=== PATIENT | female | born 1955 | race Caucasian/White ===

== ENCOUNTER 2024-07-26 07:07 | Emergency (ER) | payer MEDICARE, MEDICAID, SELFPAY ==
--- NOTE | ~2024-07-26 | XR_ITS ---
EXAMINATION: XR knee RT min 4V DATE: 07/26/2024 07:54 INDICATION: Right knee pain. TECHNIQUE: 4 views of right knee were obtained. COMPARISON: None. FINDINGS: There is a total right knee arthroplasty with patellar resurfacing. There are lucencies florence und the tibial component. There is varus angulation of tibia with respect to tibial component. There is a comminuted periprosthetic fracture of proximal tibia anteriorly. There is a large knee joint eff usion. IMPRESSION: 1. Total right knee arthroplasty with loosened tibial component and comminuted periprosthetic fractur e of proximal tibia. 2. Large knee joint effusion. Consider knee joint aspiration to exclude infection. Reviewed, dictated and finalized at location A. IMPRESSION: 1. Total right knee arthroplasty with loosened tibial component and comminuted periprosthetic fracture of proximal tibia. 2. Large knee joint effusion. Consider knee joint aspiration to exclude infecti on.
[2024-07-26 07:03] VITALS: BP 134/98; PULSE 97; RESP 14; TEMP 35.5; O2SAT 98
[2024-07-26 07:25] VITALS: TEMP 36.4
--- OUTSIDE RECORDS SUMMARY | 2024-07-26 07:35 | XMS_ITS | Clinical Summary ---
Author Organization [facility] Address [address] [facility] [place] [address] Care Team Providers Care Picking Belt Operator Name Role Phone Elliott Valente MD Primary Care Provider [phone] Source Comments [facility],non-owned Affiliates and Associated Physician Practices is amultiple site organization consisting of ambulatory clinics and hospital sitesin [place], [place], [place] and [place]. This disclosure is being madepursuant to the Care Everywhere program and may not contain all information available regarding this patient. Last updated 18.[facility] Allergies Active Allergy Reactions Criticality Noted Date Comments Cortisone Other,Unknown 01/25/2024 Morphine Other High 05/08/2024 Iv induced only Codeine Other 05/08/2024 hallucination Prednisone Unknown 01/25/2024 Medications * Be aware that medications may not be up to date on this document. Alwaysverify current medications with the patient. Medication Sig Dispensed Refills Start Date End Date Status acetaminophen (Tylenol) 325 MG tablet Take 2 (two) tablets by mouth 01/16/2024 Active baclofen (Lioresal) 5 MG TABS Take 1 (one) tablet by mouth every 8 hours as needed 02/07/2024 Active budesonide-formoter ol (Symbicort) 160-4.5 MCG/ACT inhaler Inhale 2 (two) puffs by mouth 2 times daily 02/07/2024 Active busPIRone (Buspar) 7.5 MG tablet Take 1 (one) tablet by mouth 2 times daily 01/16/2024 Active vitamin D, ergocalciferol, (Drisdol) 1.25 MG (13717 UT) capsule TAKE 1 CAPSULE BY MOUTH ONE TIME PER WEEK 09/21/2023 Active fluconazole (Diflucan) 150 MG tablet TAKE 1 TABLET (150 MG TOTAL) BY MOUTH ONCE FOR 1 DOSE. 07/12/2023 Active furosemide (Lasix) 20 MG tablet Take 1 (one) tablet by mouth 2 times daily 01/16/2024 Active furosemide (Lasix) 40 MG tablet Take 1 (one) tablet by mouth 01/16/2024 Active gabapentin (Neurontin) 300 MG capsule Take 1 (one) capsule by mouth once daily 09/01/2023 Active glipiZIDE CR 24hr (Glucotrol XL) 2.5 MG tablet TAKE 1 TABLET BY MOUTH NIGHTLY,TO BE USED WITH THE 5MG 04/21/2023 Active SeptRx CONTOUR NEXT TEST test strip Use 1 (one) strip as instructed SEE ADMIN INSTRUCTIONS 12/26/2022 Active guaiFENesin ER 12hr (Mucinex) 600 MG tablet Take 1 (one) tablet by mouth 01/16/2024 Active Insulin Glargine, 1 Unit Dial, (Toujeo) pen Inject 35 Units under the skin planning engineer before breakfast AND 20 Units nightly. 09/26/2023 Active insulin glargine-yfgn (Semglee) pen 35 unit(s), Subcutaneous, Daily, 0 Refill(s), Indication: DM II 01/16/2024 Active insulin lispro (HumaLOG) 100 UNIT/ML vial 05/04/2024 Active BD Pen Needle Erika 2nd Gen 32G X 4 MM MISC 2 times daily 10/22/2023 Active lidocaine (Lidoderm) 5 % patch Apply 3 (three) patches to skin every 24 hours 02/07/2024 Active metFORMIN (Glucophage) 500 MG tablet TAKE 1 TAB BY MOUTH IN THE MORNING AND 2 AT BEDTIME 04/28/2023 Active meclizine (Antivert) 25 MG tablet Take 1 (one) tablet by mouth 01/16/2024 Active meloxicam (Mobic) 15 MG tablet Take 1 (one) tablet by mouth once daily 08/10/2023 08/09/2024 Active Semaglutide (1 MG/DOSE) 2 MG/1.5ML Subcutaneous Solution Pen-injector Active traMADol HCl 100 MG TABS Take 100 mg by mouth every 6 hours as needed 02/19/2024 Active Active Problems No known active problems Encounters Date Type Department Care Team Description 05/08/2024 2:58 PM MENTAL HEALTH UNIT LEAD PSYCHOLOGIST - 05/08/2024 7:53 PM MENTAL HEALTH UNIT LEAD PSYCHOLOGIST Emergency ER at [facility] [address] [place] [address] Marlys Allen DO Closed head injury, initial encounter; Abrasion of forehead, initial encounter Discharge Disposition: Home or Self Care 05/08/2024 1:30 PM MENTAL HEALTH UNIT LEAD PSYCHOLOGIST - 05/08/2024 11:59 PM MENTAL HEALTH UNIT LEAD PSYCHOLOGIST Hospital Encounter [facility] - Orthopedics [address] [place] [address], [address] [place] [phone] Bladimir Gonzalez MD Discharge Disposition: Home or Self Care 05/08/2024 1:30 PM MENTAL HEALTH UNIT LEAD PSYCHOLOGIST Office Visit [facility] - Orthopedic Surgery [address] [place] [phone] Bladimir Gonzalez MD Failed total knee arthroplasty, initial encounter (Primary Dx) 05/08/2024 Travel 05/08/2024 Travel 05/07/2024 Orders Only [facility] - Orthopedic Surgery [address] [place] [phone] Bladimir Gonzalez MD Left knee pain, unspecified chronicity from Last 3 Months Immunizations Name Administration Dates Next Due TDAP (7yrs+) 05/08/2024 Social History Tobacco Use Types Packs/Day Years Used Date Smoking Tobacco: Never Assessed PHQ-2 Answer Date Recorded Patient Health Questionnaire-2 Score 4 07/18/2024 Sex and Gender Information Value Date Recorded Sex Assigned at Female 07/05/2024 10:13 AM MENTAL HEALTH UNIT LEAD PSYCHOLOGIST Gender Identity Female 07/05/2024 10:13 AM MENTAL HEALTH UNIT LEAD PSYCHOLOGIST Sexual Orientation Not on file Last Filed Vital Signs Vital Sign Reading Time Taken Comments Blood Pressure 115/86 05/08/2024 5:00 PM MENTAL HEALTH UNIT LEAD PSYCHOLOGIST Pulse 92 05/08/2024 3:04 PM MENTAL HEALTH UNIT LEAD PSYCHOLOGIST Temperature 36.6 C (97.8 F) 05/08/2024 3:04 PM MENTAL HEALTH UNIT LEAD PSYCHOLOGIST Respiratory Rate 16 05/08/2024 3:04 PM MENTAL HEALTH UNIT LEAD PSYCHOLOGIST Oxygen Saturation 95% 05/08/2024 5:00 PM MENTAL HEALTH UNIT LEAD PSYCHOLOGIST Inhaled Oxygen Concentration - - Weight - - Height - - Body Mass Index - - Plan of Treatment Upcoming Encounters Date Type Department Care Team (Filomena borja Contact Info) Description 10/11/2024 11:00 AM CDT Office Visit [facility] - Orthopedic Surgery [address] [place] [phone] Gerson Espinosa DO [address] [facility] [place] [address] Health Maintenance Due Date Last Done Comments BONE DENSITY TESTING 1957 COLON MONITORING 1957 COLONOSCOPY - COLON CA SCREENING 1957 CT COLONOGRAPHY - COLON CA SCREENING 1957 FIT - COLON CA SCREENING 1957 FLEX SIG - COLON CA SCREENING 1957 LIPID TESTING 1957 MEDICARE AWV 12 MONTHS 1957 HEPATITIS C SCREENING 12/21/1975 PNEUMOCOCCAL VACCINE 50+ (1 of 1 - PCV) 12/26/2007 ZOSTER VACCINE (1 of 2) 12/26/2007 Respiratory Syncytial Virus (RSV) Vaccine Pt: or over 60 yrs (1 - Risk 60-74 years 1-dose series) 2017 MAMMOGRAM 05/24/2020 05/24/2018, 05/02, 02/25/2016, Additional history exists COVID-19 VACCINE ( - season) 2023 03/06/2021, 07/28/2020 DEPRESSION SCREENING 05/01/2024 COLOGUARD (AGES 45-75) - COLON CA SCREENING 08/09/2025 08/09/2022 Colorectal Cancer Screening 08/09/2025 DTAP/TDAP/TD VACCINES (2 - Td or Tdap) 05/08/2034 05/08/2024 INFLUENZA VACCINE Completed 02/07/2024, , 02/11/2020, Additional history exists HEPATITIS B VACCINE Aged Out No longe r eligible based on patient's age to complete this topic HIB VACCINE Aged Out No longer eligi ble based on patient's age to complete this topic HPV VACCINE Aged Out No longer eligi ble based on patient's age to complete this topic MENINGOCOCCAL (Group B) VACCINE SHARED DECISION-MAKING Aged Out No longer eligible based on patient's age to complete this topic MENINGOCOCCAL GROUPS A/C/Y/W VACCINE Aged Out No longer eligible based on patient's age to complete this topic Procedures Procedure Name Priority Date/Time Associated Diagnosis Comments CT HEAD CERV SPINE WO CONTRAST STAT 05/08/2024 5:46 PM MENTAL HEALTH UNIT LEAD PSYCHOLOGIST Closed head injury, initial encounter XR KNEE LEFT 2VW OR LESS Routine 05/08/2024 1:41 PM MENTAL HEALTH UNIT LEAD PSYCHOLOGIST Left knee pain, unspecified chronicity from Last 3 Months Results * CT Head Cerv Spine Wo Contrast (05/08/2024 5:46 PM MENTAL HEALTH UNIT LEAD PSYCHOLOGIST) Anatomical Region Laterality Modality Head Computed Tomogra phy 05/08/2024 5:50 PM MENTAL HEALTH UNIT LEAD PSYCHOLOGIST Impressions 05/08/2024 5:52 PM MENTAL HEALTH UNIT LEAD PSYCHOLOGIST IMPRESSION: 1. No acute intracranial process. 2. No evidence of acute fracture in the cervical spine. > Interpreting Provider: Tom Coleman MD on 05/08/2024 5:52 PM Narrative 05/08/2024 5:52 PM MENTAL HEALTH UNIT LEAD PSYCHOLOGIST PROCEDURE: CT HEAD CERV SPINE WO CONTRAST DATE/TIME OF EXAM: 05/08/2024 5:46 PM CLINICAL INFORMATION: None relevant/not provided if blank. Indication: S09.90XA: Unspecified injury of head, initial encounter Additional History: EXAMINATION: 1. Computed tomography (CT) of the head without contrast 2. CT of the cervical spine without contrast HISTORY: S09.90XA: Unspecified injury of head, initial encounter TECHNIQUE: CT of the head and cervical spine were performed without contrast according to standard protocol. FINDINGS: Head: No acute intra- or extra-axial fluid collections are identified. There is mild cerebral volume loss with associated ex vacuo ventricular dilatation. The basilar cisterns are patent. No mass effect or midline shift is seen. Hypoattenuation is seen in the periventricular white matter and there may be some small lacunar infarcts particularly along the frontal horn of the right lateral ventricle. Periventricular white matter hypoattenuation is indicative of chronic small vessel ischemic disease. There is vascular calcification of the carotid siphons. The visualized portions of the orbits, paranasal sinuses, and mastoids appear normal. No acute fracture is identified. Cervical spine: The alignment is normal. Vertebral bodies are normal in height without evidence of acute fracture. The craniocervical junction is normal. Degenerative changes are seen in the spine. Posterior disc osteophyte complexes are seen throughout the cervical spine. There may be some scarring in the lung apices. There could be central canal stenosis secondary to multiple posterior disc osteophyte complexes particularly in the lower cervical spine. Procedure Note Tom Coleman MD - 05/08/2024 PROCEDURE: CT HEAD CERV SPINE WO CONTRAST DATE/TIME OF EXAM: 05/08/2024 5:46 PM CLINICAL INFORMATION: None relevant/not provided if blank. Indication: S09.90XA: Unspecified injury of head, initial encounter Additional History: EXAMINATION: 1. Computed tomography (CT) of the head without contrast 2. CT of the cervical spine without contrast HISTORY: S09.90XA: Unspecified injury of head, initial encounter TECHNIQUE: CT of the head and cervical spine were performed without contrast according to standard protocol. FINDINGS: Head: No acute intra- or extra-axial fluid collections are identified. Thereis mild cerebral volume loss with associated ex vacuo ventriculardilatation. The basilar cisterns are patent. No mass effect or midline shift isseen. Hypoattenuation is seen in the periventricular white matter and theremay be some small lacunar infarcts particularly along the frontal horn ofthe right lateral ventricle. Periventricular white matter hypoattenuation is indicative of chronic small vessel ischemic disease. There is vascular calcification of the carotid siphons. The visualized portions of the orbits, paranasal sinuses, and mastoids appear normal. No acute fractureis identified. Cervical spine: The alignment is normal. Vertebral bodies are normal in height without evidence of acute fracture. The craniocervical junction is normal. Degenerative changes are seen in the spine. Posterior disc osteophyte complexes are seen throughout the cervical spine. There may be some scarring in the lung apices. There could be central canal stenosis secondary to multiple posterior disc osteophyte complexes particularlyin the lower cervical spine. IMPRESSION: 1. No acute intracranial process. 2. No evidence of acute fracture in the cervical spine. > Interpreting Provider: Tom Coleman MD on 05/08/2024 5:[address] ORDERABLES * XR Knee Left 2Vw or Less (05/08/2024 1:41 PM MENTAL HEALTH UNIT LEAD PSYCHOLOGIST) Anatomical Region Laterality Modality Lower Extremity Radiographic Blanca ging 05/08/2024 1:43 PM MENTAL HEALTH UNIT LEAD PSYCHOLOGIST Narrative 05/08/2024 1:47 PM MENTAL HEALTH UNIT LEAD PSYCHOLOGIST Procedure: XR KNEE LEFT 2VW OR LESS Exam Date: 05/08/2024 1:41 PM Location: [facility] Indication: M25.562: Pain in left knee Findings/impression: No old studies are available for comparison purposes. Patient is status post total knee replacement. There is slight posterior translation of the tibia with respect to the femur. There appear to be 2 fragments of the patella. One fragment is at its typical position. There is a second fragment in the superior aspect of the joint space. Please correlate clinically. Comparison to old studies would be helpful. There is surrounding soft tissue swelling. Intra-articular bodies are present posteriorly. > Interpreting Provider: Chacho Zayas MD on 05/08/2024 1:47 PM Procedure Note Chacho Zayas MD - 05/08/2024 Procedure: XR KNEE LEFT 2VW OR LESS Exam Date: 05/08/2024 1:41 PM Location: [facility] Indication: M25.562: Pain in left knee Findings/impression: No old studies are available for comparison purposes. Patient is status post total knee replacement. There is slight posterior translation ofthe tibia with respect to the femur. There appear to be 2 fragments of the patella. One fragment is at its typical position. There is a second fragment in the superior aspect of the joint space. Please correlate clinically. Comparison to old studies would be helpful. There is surrounding soft tissue swelling. Intra-articular bodies are present posteriorly. > Interpreting Provider: Chacho Zayas MD on 05/08/2024 1:47 PM Bladimir Gonzalez MD DIAGNOSTIC IMAGING ORDERABLES from Last 3 Months Care Teams Picking Belt Operator Relationship Specialty Start Date End Date Elliott Valente MD [address] [address] PCP - General Family Medicine 05/08/24
--- OUTSIDE RECORDS SUMMARY | 2024-07-26 07:36 | XMS_ITS | Encounter Summary ---
Author Organization [facility] Care Team Providers Care Geothermal Electrical Engineer Name Role Phone Cecilio Villaseñor MD Primary Care Provider [phone] Todd Cabrales MD Primary Care Provider [phone] Elliott Valente MD Primary Care Provider [phone] Sammi Chanel [facility] Unavailable [phone] Amy Sanchez CDE Unavailable [phone] Cristiane Kam RN Unavailable [phone] Cristiane Kam RN Unavailable [phone] Miri Rincon [facility] Unavailable [phone] Jany Mariee RN Unavailable [phone] Sabiha Jimenez [facility] Unavailable [phone] Encounter Details Date Type Department Care Team (Latest Contact Info) Description 11/16/2015 Orders Only [facility] ProviderKanwal MD [address] [place] [address] Social History Tobacco Use Types Packs/Day Years Used Date Smoking Tobacco: Never Assessed Comments Unknown Sex and Gender Information Value Date Recorded Sex Assigned at Not on file Legal Sex Female 8:39 PM ELECTRONIC SYSTEMS TECHNICIAN Gender Identity Not on file Sexual Orientation Not on file documented as of this encounter Plan of Treatment Not on file documented as of this encounter Procedures Procedure Name Priority Date/Time Associated Diagnosis Comments SCAN - LABS 11/17/2015 12:00 AM CDT documented in this encounter Results * SCAN - LABS (11/17/2015 12:00 AM CDT) Narrative 11/17/2015 12:00 AM CDT Ordered by an unspecified provider. us Historical Provider Final Res ult documented in this encounter Visit Diagnoses Not on filedocumented in this encounter Additional Health Concerns Infection Onset Date Last Indicated Resolved Time COVID: Suspected 04/23/2020 04/23/2020 05/07/2020 3:06 AM ELECTRONIC SYSTEMS TECHNICIAN documented as of this encounter Care Teams Geothermal Electrical Engineer Relationship Specialty Start Date End Date Cecilio Villaseñor MD [address] [place] [address] PCP - General 01/12/11 01/07/19 Todd Cabrales MD [facility] [facility] [facility] [facility] [place] [address] PCP - General Family Medicine 01/08/19 03/29/22 Elliott Valente MD [address] [place] [address] PCP - General Family Medicine 03/30/22 Sammi Chanel, Tasha [address] [place] [address] [address] [place] [address] Pharmacist Pharmacy 01/18/23 02/16/23 Amy Sanchez CDE [address] [place] [address] [address] [place] [address] Roof Truss Detailer 07/06/23 07/20/23 Cristiane Kam, RN [address] [place] [address] [address] [place] [address] Salary And Wage Administrator 07/06/23 07/13/23 Cristiane Kam, RN [address] [place] [address] [address] [place] [address] Salary And Wage Administrator 07/14/23 08/02/23 Miri Rincon, TECHNICAL ADJUSTER [address] [place] [address] [place] [address] Agriculture Department Chair 01/24/24 03/25/24 Jany Mariee, KARIME [address] [place] [address] [address] [place] [address] Salary And Wage Administrator 02/08/24 Sabiha Jimenez, [address] [place] [address] Pharmacist Pharmacy 02/20/24 02/20/24 documented as of this encounter
--- OUTSIDE RECORDS SUMMARY | 2024-07-26 07:36 | XMS_ITS | Continuity of Care Document ---
Author Organization [facility] Address [address] [place] [address] Phone Care Team Providers Care Liquefied Natural Gas Plant Operator Name Role Phone Devin Valencia MD Unavailable Unavailable Medications Medication Instructions Dosage Effective Dates (start - stop) Status Comments cetirizine 10 mg tablet take 1 tablet by oral route every evening 10 MG - Active fexofenadine 180 mg tablet take 1 tablet by oral route every morning 180 MG - Active clotrimazole 10 mg neelam take 1 tablet by oral route 4 times every day dissolved slowly in the mouth 10 MG - Active irbesartan 150 mg-hydrochlorothiazi de 12.5 mg tablet - Active metformin 500 mg tablet take 1 tablet by oral route 2 times every day with morning and evening meals 500 MG - Active gabapentin 300 mg capsule take 1 capsule by oral route 3 times every day 300 MG - Active OMEPRAZOLE (unknown strength) Not Available - Active PreserVision AREDS 2 250 mg-200 unit-40 mg-1 mg capsule - Active glipizide ER 2.5 mg tablet, extended release 24 hr - Active LANTUS (unknown strength) inject by subcutaneous route as per insulin protocol Not Available - Active tramadol 50 mg tablet - Active Advance Directives Directive Yes / No Effective Date File Name No Information Encounters Encounter Description Practice Location Reason(s) For Visit Diagnoses Date Provider Providers Copied on Encounter [facility], [address], [place], [place], [id number], [place] tel:[phone] [facility] No Information 7 Erik Beltran. [address] [address], [place], [place], [id number], [place]. tel:[phone] [facility], [address], [place], [place], [id number], [place] tel:[phone] [facility] Other urticariaThru sh, oralRosacea, unspecified Dec- 7 Erik Beltran. [address] [facility] [address], [place], [place], [id number], . tel:[phone] Referring Provider: Cecilio Villaseñor [address] [place] [address] [address], [place], [address]. tel:[phone] [facility], [address], [place], [place], [id number], tel:[phone] [facility] ALLERGIC URTICARIA 7 Conversion Doctor. [address] [place] [address], [facility], . [facility], [address], [place], [place], [id number], tel:[phone] [facility] RHINITIS DUE TO POLLEN 1 Conversion Doctor. [address] [place] [address], [facility], . Family History Family Member Type Diagnosis Age At Onset No Information Payers Payer name Insurance type Covered libertarian ID Authoriza tion(s) [place]ICARE [place] [id number] Social History Type Description Quantity Date Captured Comments Alcohol Use Details Unknown Caffeine Use Details Unknown Tobacco Use Status No Information Smoking Status No Information Sex Female Chief Complaint And Reason For Visit No Information Reason For Referral Reason For Referral No Information History Of Present Illness Encounter Date Complaint History Of Prese nt Illness No Information Functional Status Date Functional Assessmen t No Information Instructions Date Instruction Additional Infor mation No Information Assessments Type Assessment Date No Information Patient Care Teams Name Effective Dates (start - stop) Status Members No Information
--- OUTSIDE RECORDS SUMMARY | 2024-07-26 07:36 | XMS_ITS | Referral Summary ---
Author Organization [facility] Address [address] [place] [address] Care Team Providers Care Home Health Assistant Name Role Phone Elliott Valente MD Primary Care Provider [phone] Jany Mariee RN Unavailable [phone] Encounters Date Type Department Care Team Description 06/24/2024 Telephone [facility] Pulmonary [address] [place] [address] Chase Levin MD Orders Only 06/24/2024 11:30 AM [employer] Office Visit [address] [place] [address] Lupe Walters NP SUKUMAR (obstructive sleep apnea) (Primary Dx); Moderate persistent asthma without complication 05/17/2024 Telephone [facility] at [place] [address] [place] [address] Elliott Valente MD Medical Question/Miscellaneou s from Last 3 Months Allergies Active Allergy Reactions Criticality Noted Date Comments Cortisone Unknown 01/25/2024 Cephalexin Hives Medium 06/17/2019 Morphine Hypotension High Iv induced only Neuromuscular Blockers, Steroidal Penicillins Unknown,Other (See comments) Low 01/25/2024 Prednisone Unknown 01/25/2024 Medications vit C/E/Zn/coppr/lute in/zeaxan (PRESERVISION AREDS-2 ORAL) 2 (two) times a day Active loratadine (CLARITIN) 10 mg tablet Take 1 tablet (10 mg total) by mouth nightly Active meclizine (ANTIVERT) 12.5 mg tabletIndications :Vertigo Take 1 tablet (12.5 mg total) by mouth 3 (three) times a day as needed for dizziness 90 tablet 020 Active magnesium oxide (MAG-OX) 400 mg (241.3 mg elemental magnesium) tablet Take 1 tablet (400 mg total) by mouth daily Active blood glucose diagnostic (Contour Next Test Strips) stripIndications: Type 2 diabetes mellitus with peripheral neuropathy (HCC) 1 each by other route as directed Twice daily 100 strip 11 023 Active metFORMIN (GLUCOPHAGE) 500 mg tabletIndications :Type 2 diabetes mellitus with peripheral neuropathy (HCC) TAKE 1 TAB BY MOUTH IN THE MORNING AND 2 AT BEDTIME 023 Active meloxicam (MOBIC) 15 mg tabletIndications :Primary osteoarthritis of both knees TAKE 1 TABLET (15 MG TOTAL) BY MOUTH DAILY. 90 tablet 3 024 2024 Active pen needle, diabetic (Unifine Pentips) 32 gauge x 5/32 needleIndications :Type 2 diabetes mellitus with peripheral neuropathy (HCC) Twice daily. Needs 4 mm 100 each 11 024 Active ergocalciferol (VITAMIN D) 50,000 unit capsule Take 1 capsule (50,000 Units total) by mouth once a week 12 capsule 4 024 Active gabapentin (NEURONTIN) 300 mg capsule Take 1 capsule (300 mg total) by mouth daily 90 capsule 3 024 Active ipratropium-albut Roro (DUO-NEB) 0.5-2.5 mg/3 mL nebulizer solutionIndicatio ns:Chronic Obstructive Pulmonary Disease with Bronchospasms Take 3 mL by nebulization 4 (four) times a day as needed for wheezing or shortness of breath 024 2024 Active potassium chloride ER (Klor-Con M20) 20 mEq CR tabletIndications :Bilateral leg edema Take 1 tablet (20 mEq total) by mouth 3 (three) times a day 270 tablet 3 024 Active lancets miscIndications:T ype 2 diabetes mellitus with peripheral neuropathy (HCC) Test tid 300 each 3 024 Active furosemide (LASIX) 20 mg tablet Take 1 tablet (20 mg total) by mouth 2 (two) times a day Active omeprazole (PriLOSEC) 40 mg capsule Take 1 capsule (40 mg total) by mouth daily Active baclofen (LIORESAL) 5 mg tablet Take 1 tablet (5 mg total) by mouth every 8 (eight) hours as needed for muscle spasms Active insulin lispro (HumaLOG, ADMELOG) 100 unit/mL pen for injection Inject 5 Units under the skin 3 (three) times a day with meals Active lidocaine (LIDODERM) 5 %Indications:Knee and hip Place 3 patches on the skin daily Remove & discard patch within 12 hours or as directed by MD. Active montelukast (SINGULAIR) 10 mg tablet Take 1 tablet (10 mg total) by mouth nightly 024 2024 Active traMADoL 100 mg tabletIndications :Pain Take 100 mg by mouth every 6 (six) hours as needed (pain) 120 tablet 024 Active busPIRone (BUSPAR) 7.5 mg tabletIndications :Anxiety TAKE 1 TABLET BY MOUTH 2 TIMES A DAY. 180 tablet 3 024 Active insulin glargine 100 unit/mL (3 mL) pen for injectionIndicati ons:Type 2 diabetes mellitus with peripheral neuropathy (HCC) 35 units in am and 40 units at bedtime 45 mL 4 025 Active semaglutide (Ozempic) 0.25 mg or 0.5 mg (2 mg/3 mL) pen injector injection Inject 0.5 mg under the skin every 7 days 2 mL 2 025 Active fluticasone-umecl idin-vilanter (TRELEGY ELLIPTA) 100-62.5-25 mcg inhalerIndication s:Please dispense 90 day Inhale 1 puff daily 24 each 3 025 Active semaglutide (OZEMPIC) 1 mg/dose (4 mg/3 mL) pen injector injectionIndicati ons:Type 2 diabetes mellitus with peripheral neuropathy (HCC) Inject 0.75 mL (1 mg total) under the skin every 7 days 3 mL 2 025 2024 Discontinued fluticasone-umecl idin-vilanter (TRELEGY ELLIPTA) 100-62.5-25 mcg inhalerIndication s:Moderate persistent asthma without complication Inhale 1 puff daily 28 each 11 025 2024 Discontinued fluticasone-umecl idin-vilanter (TRELEGY ELLIPTA) 100-62.5-25 mcg inhalerIndication s:Moderate persistent asthma without complication Inhale 1 puff daily 28 each 11 025 2024 Discontinued(R eorder) fluticasone-umecl idin-vilanter (TRELEGY ELLIPTA) 100-62.5-25 mcg inhalerIndication s:Please dispense 90 day Inhale 1 puff daily 24 each 3 025 2024 Discontinued(R eorder) Active Problems Problem Noted Date Diagnosed Date Physical deconditioning 01/31/2024 Assessment & Plan (01/31/2024 8:41 PM CDT): CT imaging inconclusive for new injuries to right hip Urinalysis testing pending Social service consultation for placement requested as per patient request Other constipation 01/31/2024 Assessment & Plan (01/31/2024 8:42 PM CDT): Lactulose x1 Patient is sedentary and utilizing narcotic pain medications Supplement Colace as a part of daily regimen Tachycardia 01/31/2024 Assessment & Plan (01/31/2024 8:43 PM CDT): Noted during physical examination Heart rate ranging from 105 up to 122 beats per minute, patient denies having chest pain or palpitation like sensation nor this patient refer dizziness Telemetry EKG pending Pending assessment a TSH and free T4 levels CTA chest negative for PE Pending follow-up assessment and further adjustments to management Bedbound 01/25/2024 Acute pain of left knee 12/13/2023 Leukocytosis 11/21/2023 Loosening of prosthesis of left knee joint 11/18 Loosening of prosthesis of left total knee repla cement 11/18/2023 Fall, initial encounter 11/17/2023 SIRS (systemic inflammatory response syndrome) 0 11/17/2023 Menopause 09/22/2023 Bilateral leg edema 09/22/2023 Overview (09/22/2023): Chronic. Likely due to Morbid Obesity/Sedantary Lifestly/High Sodium diet. Inadequately Controlled. 08/03/23 Stress test Ruled out CHF. Moderate persistent asthma without complication 09/22/2023 Overview (09/22/2023): Chronic. Controlled. COnt. Duoneb/Singulair/Trelegy. Follows Dr. Barroso. Assessment & Plan (06/24/2024 11:55 AM [employer]): The patient continue with Wixela one puff twice a day. Patient will continue with Singulair. Seasonal allergic rhinitis due to pollen 024 Overview (09/22/2023): conditoin chroinc adn at goal continue berny zyrtec and the singular Failed total knee arthroplasty 07/12/2022 Overview (07/12/2022): Added automatically from request for surgery [id number] ENRIQUE (generalized anxiety disorder) 12/31/2020 Assessment & Plan (01/23/2022 9:59 PM CDT): Chronic stable and currently on buspar. Continue current dosing. F/u with dr cabrales Assessment & Plan (12/31/2020 10:43 AM CDT): Chronic Stable on buspar Vaginal atrophy 02/28/2020 Decreased bladder capacity 11/28/2019 Pelvic floor dysfunction in female 05/29/2019 Assessment & Plan (01/23/2022 10:07 PM CDT): Chronic and recommended pelvic floor exercises Assessment & Plan (12/31/2020 10:42 AM CDT): Follows with urogynecology Incisional hernia, without obstruction or gangre ne 05/29/2019 Peripheral polyneuropathy 09/12/2018 Assessment & Plan (01/23/2022 10:08 PM CDT): Chronic stable Continue gabapentin. Assessment & Plan (12/31/2020 10:43 AM CDT): Chronic condition Stable On gabapentin and tramadol Assessment & Plan (09/13/2018 8:17 AM CDT): Controlled on gabapentin Leg pain, bilateral 09/21/2017 Chronic gastritis without bleeding 02/28/2017 Assessment & Plan (12/31/2020 10:38 AM CDT): Chronic condition stable on omeprazole Assessment & Plan (09/13/2018 8:16 AM CDT): Controlled on Prilosec Ganglion cyst of wrist 11/26/2015 Assessment & Plan (09/13/2018 8:55 AM CDT): The patient has asymptomatic can glean cyst and we discussed options including excision and she elected observation Artificial knee joint present 08/26/2015 HLD (hyperlipidemia) 08/24/2015 Assessment & Plan (01/23/2022 10:00 PM CDT): Chronic Currently not on statin Order lipid panel for evaluation of ldl goal < 70 Assessment & Plan (12/31/2020 10:40 AM CDT): Chronic condition Not on statin Order lipid panel Assessment & Plan (09/13/2018 8:17 AM CDT): Controlled on no medications Hypertension, essential 08/24/2015 Assessment & Plan (01/23/2022 10:01 PM CDT): Chronic stable and at goal Continue lasix and avalide Assessment & Plan (12/31/2020 10:40 AM CDT): Chronic Stable Continue current regimen At goal Assessment & Plan (09/13/2018 8:17 AM CDT): Continue current medications. Discussed low-salt diet. Discussed exercise on regular basis. Will continue to monitor OAB (overactive bladder) 08/24/2015 Assessment & Plan (01/23/2022 10:03 PM CDT): Chronic Persistent Recommended pelvic floor exercises Assessment & Plan (12/31/2020 10:41 AM CDT): Chronic condition Following with urogynecologist Assessment & Plan (09/13/2018 8:17 AM CDT): Followed by the urologist Class 3 severe obesity due t o excess calories without serious comorbidity with body mass index (BMI) greater than or equal to 70 in adult 08/24/2015 Assessment & Plan (09/18/2023 12:50 PM CDT): Recommended aggressive Lifestyle modification and weight loss for improving overall weight related health conditions. Follow up in 1 or 3 months for continuing Lifestyle Medicine education and management visit. Recommend Lifestyle/Nutrition/Weight Loss Seminar on every other Tuesdays @ 5pm. Assessment & Plan (10/12/2022 1:32 PM CDT): Recommended aggressive Lifestyle modification and weight loss for improving overall weight related health conditions. Follow up in 1 or 3 months for continuing Lifestyle Medicine education and management visit. Recommend Lifestyle Seminar on Wednesdays @ 5pm. Assessment & Plan (01/23/2022 10:06 PM CDT): Chronic Limited mobility Work on 1500 anjum ada diet Assessment & Plan (12/31/2020 10:42 AM CDT): Chronic condition Needs to manage with caloric restriction Limited ability to exercise Assessment & Plan (09/13/2018 8:18 AM CDT): BMI Follow-up includes: nutrition counseling. The patient was advised to exercise 5 times a week for 30 minutes each time. We discussed low calorie diet. Discussed lifestyle changes. SUKUMAR (obstructive sleep apnea) 08/24/2015 Assessment & Plan (06/24/2024 11:55 AM [employer]): I have ordered the patient new CPAP set at 13 cm of water pressure. The patient's DME is [facility]. I did inform the patient that due to the age of her study Medicare may require her another sleep test. She did verbalize understanding. Assessment & Plan (08/10/2022 2:04 PM CDT): The patient continues to benefit from CPAP at 13 cm water pressure. Her DME supplier is [employer]. She will follow-up here in 6 months Assessment & Plan (06/01/2022 2:19 PM [employer]): The patient continues to benefit from CPAP at 13 cm water pressure. Her DME supplier is [employer]. Assessment & Plan (01/23/2022 10:07 PM CDT): Chronic Continue with cpap Assessment & Plan (12/31/2020 10:42 AM CDT): Chronic and corrected with cpap Assessment & Plan (11/17/2020 2:06 PM CDT): Patient continue to wear her CPAP at 13 cm water pressure while sleeping. Her DME is [facility]. Assessment & Plan (09/13/2018 8:55 AM CDT): The patient uses CPAP machine on regular basis Type 2 diabetes mellitus with peripheral neuropa thy 09/14/2013 Overview (02/13/2019): DMII WO CMP UNCNTRLD Assessment & Plan (01/23/2022 10:09 PM CDT): Chronic To obtain a1c for goal of treatment. Continue curerntl regimen glipizid and lantus, Assessment & Plan (12/31/2020 10:39 AM CDT): Chronic condition Last a1c 7.0 Continue current regimen Order a1c Assessment & Plan (09/13/2018 8:16 AM CDT): Continue current medications, discussed low carbohydrate diet, advised to exercise on regular basis, advised to have annual eye exam. We will continue to monitor. Resolved Problems Problem Noted Date Diagnosed Date Resolved Date Cellulitis of left lower extremity 10/12/2022 11/17/2023 Mild intermittent asthma without complication 01/22/2011/17/2023 Assessment & Plan (08/10/2022 2:03 PM CDT): The patient continues to benefit from Trelegy 1 puff daily. She is albuterol to use via the MDI or nebulizer as needed. Assessment & Plan (06/01/2022 2:19 PM [employer]): The patient has a history of asthma as a child. I will check a chest x-ray, full PFTs and give her a sample of Trelegy to use 1 puff daily and rinse her mouth with water after use. She will call back if this medication helps for a prescription. She will follow-up with me in 1 month. Assessment & Plan (01/23/2022 10:02 PM CDT): Chronic intermittent Well controlled with infrequent exacerbations. Continue duoneb Nocturia 08/30/2021 11/17/2023 Assessment & Plan (08/30/2021 3:42 PM CDT): -She c/o nocturia about once every hour and presence of severe cramping in bladder region that occurs every night. PLAN: -Start oxybutynin 5mg XL at dinnertime. Dysuria 08/30/2021 11/17/2023 Assessment & Plan (08/30/2021 3:50 PM CDT): -Reports intermittent issues with dysuria, vaginal itching, worsening urgency and frequency with small voids. Typically, abx will help with these symptoms. She has used methenamine in the past which she felt worked but stopped by her PCP due to side effects on kidneys. 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 She used estrogen cream previously but stopped this after about 3 months because she wasn't sure of purpose. -Outer pelvic exam was difficult but did show some evidence of vaginal atrophy. PLAN: -Keep vaginal area as clean as possible. -Drink mostly water and void regularly. -Start estrogen cream as directed. -May try cranberry extract pill daily. -Work to control diabetes as this can contribute to issues with infection. Urinary hesitancy 05/29/2019 11/17/2023 Urinary frequency 05/29/2019 11/17/2023 Frequent UTI 05/29/2019 11/17/2023 Medicare annual wellness visit, subsequent 09/06/2018 11/17/2023 Assessment & Plan (09/22/2023 7:47 AM CDT): Patient here for annual Medicare wellness visit and for review of complete medical problem list. All the elements of the plan were completed as outlined by CMS. A copy of the prevention plan was given to the patient. I reviewed Medicare Wellness Questionnaire (other physicians involved in care, depression screen, advanced directives), cognitive/memory, and functional assessment. Forms scanned in progress notes. I reviewed and updated the complete problem list, medication list, family history, and immunization records with the patient. I provided preventive counseling and early detection interventions to the patient through health maintenance update and summary of today's office visit. Personalized Prevention Plan Services (PPPS): Opioid Use: Patient currently YES an active prescription for opioid medication. I reviewed patient's use of this medication, risk for Opioid Use Disorder, and potential benefit of other non-opioid pain therapies. Immunization: [id number]: Highly Recommended [id number]: Highly Recommended PCV20: Highly Recommended Influenza: Highly Recommended HepatitisB: Not Applicable. Tetanus: Highly Recommended Shingles: Highly Recommended RSV: Highly Recommended Cancer Screening: Mammogram: Not Applicable. PAP Smear: Not Applicable. Prostate Cancer Screening: Not Applicable. Colorectal Cancer Screening: Cologuard Stool Test Negative on 07/2022 . Repeat in 3 years 07/2025 Lung Cancer Screening: Not Applicable. Others: Diet: Lifestyle education regarding diet discussed. Exercise: Encouraged regular daily exercise. Medication Use: Aspirin use discussion. DEXA Scan: Not Applicable. Glaucoma Screening: Recommended Annually. Audio Screen ordered? No Diabetes: Not Applicable. Annual Labs: Ordered For Today. Abdominal Aortic Aneurysm Screening: Not Applicable. HIV Screening: Not Applicable. Smoking cessation Counselling: Not Applicable. Subsequent Annual Wellness Visit: Annually Immunizations Immunization Administration Dates Next Due Flucelvax Influenza Quad 01/10/2019,01/19/2018,1 Influenza, Quadrivalent, Di l Culture-based MDCK, Antibiotic Free, Intramuscular 02/11/2020 Influenza, Quadrivalent, Di l Culture-based MDCK, Preservative Free, Antibiotic Free, Intramuscular 01/10/2019,01/19/2018,02/23/2017 Influenza, Quadrivalent, Spl it, Preservative Free, Intramuscular 03/06/2021 Influenza, Trivalent, High D ose, Split, Preservative Free, Intramuscular 02/07/2024 Influenza, Trivalent, IM (MDV) 01/10/2019 Influenza, Trivalent, Preser vative Free, Intramuscular 01/19/2018 Influenza, Unspecified 01/25/2024(Deferr ed: Patient decision),04/28/2023(Deferred: Patient decision),03/01/2022(Deferred: Other),12/30/2021(Deferred: Patient decision),03/06/2021 Plan B Labs (J&J) SARS-CoV-2 Vaccination 07/28/2020 PPD TEST 12/08/2023,11/29/2023 Tdap 01/10/2019 Tetanus Toxoid, Unspecified 01/10/2019 ZOSTER Recombinant 11/08/2018,06/05/2018 Zoster, unspecified 11/08/2018,06/05/2018 Social History Tobacco Use Types Packs/Day Years Used Date Smoking Tobacco: Former Cigarettes 0.1 2 0 05/01/2000 - 05/01/2001 Smokeless Tobacco: Never Tobacco Cessation:Counseling Given: Not Answered Alcohol Use Standard Drinks/Week Comments Not Currently 0 (1 standard drink = 0.6 oz pur e alcohol) [facility] Utilities Answer Date Recorded In the past 12 months has e [employer], gas, oil, or water [employer] threatened to shut off services in your home? No 02/01/2024 Humiliation, Afraid, Rape, and Kick questionnair e Answer Date Recorded Fear of Current or Ex-Partner No Emotionally Abused No 06/21/2019 Physically Abused No 06/21/2019 Sexually Abused No 06/21/2019 Social Connection and Isolation Panel [NHANES] A nswer Date Recorded In a typical week, how many times do you talk on the phone with family, friends, or neighbors? Three times a week 02/01/2024 How often do you get togethe r with friends or relatives? Twice a week 02/01/2024 How often do you attend chur ch or gnosticist services? Never 02/01/2024 Do you belong to any clubs o r organizations such as buddhist groups, unions, fraternal or athletic groups, or school groups? No 02/01/2024 How often do you attend meet ings of the clubs or organizations you belong to? Never 02/01/2024 Are you , , di vorced, , never , or living with a partner? 02/01/2024 AUDIT-C Answer Date Recorded Q1: How often do you have a drink containing alcohol? Never 01/25/2024 Q2: How many drinks containi ng alcohol do you have on a typical day when you are drinking? Patient does not drink Q3: How often do you have si x or more drinks on one occasion? Never 01/25/2024 Overall Financial Resource Strain (CARDIA) Answe r Date Recorded How hard is it for you to pa y for the very basics like food, housing, medical care, and heating? Not very hard 02/01/2024 PHQ-2 Answer Date Recorded PHQ-2 Total Score (If total score is 3 or more points, staff should administer the PHQ-9) 6 09/11/2023 [facility] - Occupational Stress Questionnaire Answer Date Recorded Feeling of Stress To some extent 06/21/2019 Exercise Vital Sign Answer Date Recorde d Days of Exercise per Week 0 days 2019 Minutes of Exercise per Session 0 min 06/21/2019 Hunger Vital Sign Answer Date Recorded Within the past 12 months, y ou worried that your food would run out before you got the money to buy more. Never true 02/01/20 24 Within the past 12 months, t he food you bought just didn't last and you didn't have money to get more. Never true 02/01/2024 PRAPARE - Transportation Answer Date Re corded In the past 12 months, has l ack of transportation kept you from medical appointments or from getting medications? No 06/2023 In the past 12 months, has l ack of transportation kept you from meetings, work, or from getting things needed for daily living? No 02/01/2024 PHQ-9 Answer Date Recorded PHQ-9 Total Score 20 09/11/2023 Housing Stability Vital Sign Answer Jamir e Recorded In the last 12 months, was t here a time when you were not able to pay the mortgage or rent on time? No 02/01/2024 In the past 12 months, how m any times have you moved where you were living? 1 02/01/2024 [facility] were you [facility] or living in a assisted (including now)? No 02/01/2024 Personal Safety Answer Date Recorded Have you ever been in or are you currently in a harmful physical or emotional relationship or is someone making you feel afraid or unsafe? Denies 01/31/2024 Education Answer Date Recorded What is the highest level of school you have completed or the highest degree you have received? High school graduate 06/21/2019 Comments No Sex and Gender Information Value Date Recorded Sex Assigned at Not on file Legal Sex Female 8:39 PM [employer] Gender Identity Not on file Sexual Orientation Not on file Occupation Industry Job Start Date Job End Date Disabled Not on file Not on file Not on file Last Filed Vital Signs Vital Sign Reading Time Taken Comments Blood Pressure 124/72 06/24/2024 11:26 AM [employer] Pulse 99 06/24/2024 11:26 AM [employer] Temperature 36.7 C (98.1 F) 06/24/2024 11:26 AM [employer] Respiratory Rate 18 06/24/2024 11:2 6 AM [employer] Oxygen Saturation 95% 06/24/2024 11: 26 AM [employer] Inhaled Oxygen Concentration - - Weight 131.5 kg (290 lb) 06/24/2024 11: 26 AM [employer] Pt verbalized. Height 162.6 cm (5' 4 ) 06/24/2024 11:2 6 AM [employer] Body Mass Index 49.78 06/24/2024 11:26 AM [employer] Plan of Treatment Not on file Procedures Procedure Name Priority Date/Time Associated Diagnosis Comments EGFR Routine 02/03/2024 8:06 AM CDT HEMOGLOBIN A1C Routine 11/18/2023 2:48 AM CDT LIPID PANEL Routine 11/18/2023 2:48 AM CDT ALBUMIN CREATININE RATIO, URINE Routine 09/21/2023 STOOL DNA COLOGUARD Routine 08/09/2022 12:14 PM CDT Screening for colon cancer DIABETIC EYE EXAM Routine 01/22/2021 HEPATITIS C ANTIBODY Routine 06/21/2019 10:05 AM [employer] Medicare annual wellness visit, subsequent SCREENING MAMMOGRAM BILATERAL W MARTÍNEZ Routine 05/24/2018 4:18 PM [employer] HM PAP SMEAR Routine 09/09/2014 HM COLONOSCOPY Routine 05/01/2010 from Last 3 Months or Most Recently Relevant to Health Maintenance Results * eGFR (02/03/2024 8:06 AM CDT) eGFR >90 >=60 mL/min/1. 73 m2 Comment: Interpretive Data Reference Interval Normal >/= 90 mL/min/1.73m2 Mildly decreased* 60 - 89 mL/min/1.73m2 Mildly to moderately decreased 45 - 59 mL/min/1.73m2 Moderately to severely decreased 30 - 44 mL/min/1.73m2 Severely decreased 15 - 29 mL/min/1.73m2 Kidney Failure < 15 mL/min/1.73m2 *Relative to young adult level Estimated glomerular filtration rate is determined by the 2020 CKD-EPI equation recommended by the National Kid[employer] (A Unifying Approach to GFR Estimation: Recommendations of the NKF-ASK Task Force on Reassessing the Inclusion of Race in Diagnosing Kidney Disease, JASN 2020). The CKD-EPI equation should not be used for patients with unstable renal function and has not been validated in children and those over 70. Current interpretive data was last reviewed 2021. Blood 02/03/2024 8:06 AM CDT 02/03/2024 8:44 AM CDT Azalia Cook NP LAB BLOOD ORDERABLES Final Result Performing Organization Address [facility] de Phone Number [address] [address] * (ABNORMAL) Hemoglobin A1c (11/18/2023 2:48 AM CDT) Hgb A1C 6.5(H) 4.0 - 5.6 % Estimated Average Glucose 140 mg/dL [facility] Comment: The ADA recommends reporting an estimated Average Glucose (eAG) with all Hemoglobin A1c results using the equation derived from a study of 507 normal and diabetic adults. Minority populations were underrepresented and children were not included. (Diabetes Care 31:9293-4564, 2008). The eAG is not equivalent to a fasting glucose. Blood 11/18/2023 2:48 AM CDT 11/18/2023 3:03 AM CDT Jay Peña MD LAB BLOOD ORDERABLES Final Result Performing Organization Address [facility] de Phone Number [address] [address] * Lipid panel (11/18/2023 2:48 AM CDT) Cholesterol 98 30 - 199 mg/dL Comment: Interpretive Data Ages < or = 19 years Acceptable: <170 mg/dL Borderline high: 170-199 mg/dL High: >or= 200 mg/dL Ages > or = 20 years Desirable: <200 mg/dL Borderline high: 200-239 mg/dL High: >or= 240 mg/dL Literature References: 1. Expert Panel on Integrated Guidelines for Cardiovascular Health and Risk Reduction in Children and Adolescents. Pediatrics 2011;128:S213 2. NCEP Expert Panel. Circulation 2004;110:227 Current Interpretive Data was last revised on 2017. Triglycerides 74 <=149 mg/dL [place] WHITE Comment: Interpretive Data Ages < or = 9 years Acceptable: <75 mg/dL Borderline high: 75-99 mg/dL High: >or= 100 mg/dL Ages 10 to 20 years Acceptable: <90 mg/dL Borderline high: 90-129 mg/dL High: >or= 130 mg/dL Ages > or = 20 years Desirable: <150 mg/dL Borderline high: 150-199 mg/dL High: 200-499 mg/dL Very high: >or= 499 mg/dL Literature References: 1. Expert Panel on Integrated Guidelines for Cardiovascular Health and Risk Reduction in Children and Adolescents. Pediatrics 2011;128:S213 2. NCEP Expert Panel. Circulation 2004;110:227 Current Interpretive Data was last revised on 2017. HDL 49 >=40 mg/dL [place] WHITE Comment: Interpretive Data Ages < or = 19 years Acceptable: >45 mg/dL Borderline low: 40-45 mg/dL Low: <40 mg/dL Ages > or = 20 years Desirable: >or= 60 mg/dL Low: <40 mg/dL Literature References: 1. Expert Panel on Integrated Guidelines for Cardiovascular Health and Risk Reduction in Children and Adolescents. Pediatrics 2011;128:S213 2. NCEP Expert Panel. Circulation 2004;110:227 Current Interpretive Data was last revised on 2017. LDL, calculated 34 <=129 mg/dL [place] Comment: Interpretive Data Ages < or = 19 years Acceptable: <110 mg/dL Borderline high: 110-129 mg/dL High: >or= 130 mg/dL Ages > or = 20 years Optimal: <100 mg/dL Near optimal: 100-129 mg/dL Borderline high: 130-159 mg/dL High: >160 mg/dL Literature References: 1. Expert Panel on Integrated Guidelines for Cardiovascular Health and Risk Reduction in Children and Adolescents. Pediatrics 2011;128:S213 2. NCEP Expert Panel. Circulation 2004;110:227 Current Interpretive Data was last revised on 2017. Non-HDL Cholesterol 49 mg/dL [place] Comment: Interpretive Data Ages < or = 19 years Acceptable: <120 mg/dL Borderline high: 120-144 mg/dL High: >145 mg/dL Ages > or = 20 years When triglycerides are >200 mg/dL, Non-HDL cholesterol is a secondary target of therapy with treatment goals that are 30 mg/dL greater than the LDL cholesterol target. Literature References: 1. Expert Panel on Integrated Guidelines for Cardiovascular Health and Risk Reduction in Children and Adolescents. Pediatrics 2011;128:S213 2. NCEP Expert Panel. Circulation 2004;110:227 Current Interpretive Data was last revised on 2017. Chol/HDL ratio 2 [facility] Blood 11/18/2023 2:48 AM CDT 11/18/2023 3:03 AM CDT Jay Peña MD LAB BLOOD ORDERABLES Final Result Performing Organization Address City/[facility]/ZIP Co de Phone Number [facility] [address] [facility] Department [place] [address] * Albumin Creatinine Ratio, Urine (09/21/2023) SCRIBED Creatinine, Urine 32 20 - 275 EXTERNAL LAB SCRIBED Microalbumin 1.0 0 - 29 EXTERNAL LAB SCRIBED Micro ACR, Urine 0 EXTERNAL LAB SCRIBED Microalb/Creat Ratio 31 EXTERNAL LAB Urine Kanwal Provider LAB URINE ORDERABLES Leydi l Result Performing Organization Address [facility] Co de Phone Number EXTERNAL LAB * Stool DNA - Cologuard (08/09/2022 12:14 PM CDT) Stool DNA - Cologuard Negative Negative Myrl (CLIA #:[id number]) Comment: NEGATIVE TEST RESULT. A negative Cologuard result indicates a low likelihood that a colorectal cancer (CRC) or advanced adenoma (adenomatous polyps with more advanced pre-malignant features) is present. The chance that a person with a negative Cologuard test has a colorectal cancer is less than 1 in 1500 (negative predictive value >99.9%) or has an advanced adenoma is less than 5.3% (negative predictive value 94.7%). These data are based on a prospective cross-sectional study of 10,000 individuals at average risk for colorectal cancer who were screened with both Cologuard and colonoscopy. (Michael Esqueda, N Engl J Med 2014;370(14):2720-2116) The normal value (reference range) for this assay is negative. COLOGUARD RE-SCREENING RECOMMENDATION: Periodic colorectal cancer screening is an important part of preventive healthcare for asymptomatic individuals at average risk for colorectal cancer. Following a negative Cologuard result, the [place] [employer] and U.S. Multi-Society Task Force screening guidelines recommend a Cologuard re-screening interval of 3 years. References: [place] [employer] Guideline for Colorectal Cancer Screening: https://www.cancer.org/cancer/mkmgx-hpvspy-vrxcxb/oucmxwysn-ifxpuproo-dhallsi/ac s-rec ommendations.html.; Donte DK, Bharat ALCANTAR, Candace VazquezK, Colorectal Cancer Screening: Recommendations for Physicians and Patients from the U.S. Multi-Society Task Force on Colorectal Cancer Screening , Am J Gastroenterology 2017; 112:0858-5065. TEST DESCRIPTION: Composite algorithmic analysis of stool DNA-biomarkers with hemoglobin immunoassay. Quantitative values of individual biomarkers are not reportable and are not associated with individual biomarker result reference ranges. Cologuard is intended for colorectal cancer screening of adults of either sex, 45 years or older, who are at average-risk for colorectal cancer (CRC). Cologuard has been approved for use by the U.S. FDA. The performance of Cologuard was established in a cross sectional study of average-risk adults aged 50-84. Cologuard performance in patients ages 45 to 49 years was estimated by sub-group analysis of near-age groups. Colonoscopies performed for a positive result may find as the most clinically significant lesion: colorectal cancer [4.0%], advanced adenoma (including sessile serrated polyps greater than or equal to 1cm diameter) [20%] or non- advanced adenoma [31%]; or no colorectal neoplasia [45%]. These estimates are derived from a prospective cross-sectional screening study of 10,000 individuals at average risk for colorectal cancer who were screened with both Cologuard and colonoscopy. (Michael Esqueda, N Engl J Med 2014;370(14):6086-8083.) Cologuard may produce a false negative or false positive result (no colorectal cancer or precancerous polyp present at colonoscopy follow up). A negative Cologuard test result does not guarantee the absence of CRC or advanced adenoma (pre-cancer). The current Cologuard screening interval is every 3 years. ([place] [employer] and U.S. Multi-Society Task Force). Cologuard performance data in a 10,000 patient pivotal study using colonoscopy as the reference method can be accessed at the following location: www.[employer].com/results. Additional description of the Cologuard test process, warnings and precautions can be found at www.cologuard.com. Stool 08/09/2022 12:1 4 PM CDT 08/10/2022 7:48 PM CDT Elliott Valente MD LAB BODY FLUIDS AND STOOLS ORDER ISABEL Final Result Performing Organization Address [facility] Co de Phone Number [employer] (CLIA #:[id number]) [address] [place] [address] * Diabetic Eye Exam (01/22/2021) Kanwal Provider HEALTH MAINTENANCE Final Result * Hepatitis C antibody (06/21/2019 10:05 AM [employer]) Hep C Ab NONREACT NONREACTIVE [facility] Comment: Siemens CentaurXP using PK (chemiluminescent immunoassay) technology. NONREACTIVE: Antibodies to Hepatitis C not detected. This does not exclude early acute Hepatitis C infection, possibility of exposure to Hepatitis C, antibodies below detection limit, or to lack of antibody reactivity to the antigen used in this assay. EQUIVOCAL: Antibodies to Hepatitis C may or may not be present. Sample to be confirmed by real-time PCR method. REACTIVE: Antibodies to Hepatitis C detected.Sample to be confirmed by real-time PCR method. Blood specimen (specimen) 06/21/2019 10:05 AM [employer] 06/21/2019 12:21 PM [employer] Narrative Resulting Agency Comment CLI Todd Cabrales MD LAB MICROBIOLOGY - GENERAL EZEQUIEL SCANLON Final Result Performing Organization Address City/[facility]/ZIP Co de Phone Number [facility] [address] [place] [address] * Screening Mammogram Bilateral W Martínez (05/24/2018 4:18 PM [employer]) Anatomical Region Laterality Modality Breast Bilateral Mammography 05/24/2018 4:18 PM [employer] Impressions 05/25/2018 8:18 AM [employer] BI-RAD 1 NEGATIVE There is no mammographic evidence of malignancy. A 1 year screening mammogram is recommended. The patient has been or will be contacted. The patient will be entered into a reminder system with a target due date of 1 year for her next screening exam. Electronically signed by: Dr. Avtar Betts M.D. nh/penshon:05/25/2018 08:18:04 Titrator: Elisabeth ESPINOZA(R)(M), [facility] letter sent: Normal Exam Reading location: [facility] BI-RADS: 1 Negative [EOD] Narrative 05/25/2018 8:18 AM [employer] - MG BILATERAL DIGITAL SCREENING MAMMOGRAM 3D/2D WITH MEDIOLATERAL OBLIQUE CRANIOCAUDAL: 05/24/2018 The study was acquired using full field digital technology and interpreted from soft copy. 2D digital mammographic views, as well as 3D digital tomosynthesis were performed in the CC and MLO projections. CLINICAL: Routine mammogram. Patient denies any problems. Maternal aunt with breast cancer. No personal history of breast cancer. COMPARISONS: Comparison is made to exams dated: 02/25/2016 mammogram and 02/10/2015 mammogram - [facility]. BREAST TISSUE: The tissue of both breasts is almost entirely fatty. FINDINGS: No significant masses, calcifications, or other findings are seen in either breast. There has been no significant interval change. Procedure Note Provider, MD Kanwal - 09/16/2020 - MG BILATERAL DIGITAL SCREENING MAMMOGRAM 3D/2D WITH MEDIOLATERAL OBLIQUE CRANIOCAUDAL: 05/24/2018 The study was acquired using full field digital technology and interpretedfrom soft copy. 2D digital mammographic views, as well as 3D digital tomosynthesis were performed in the CC and MLO projections. CLINICAL: Routine mammogram. Patient denies any problems. Maternal auntwith breast cancer. No personal history of breast cancer. COMPARISONS: Comparison is made to exams dated: 02/25/2016 mammogram and 02/10/2015 mammogram - [facility]. BREAST TISSUE: The tissue of both breasts is almost entirely fatty. FINDINGS: No significant masses, calcifications, or other findings areseen in either breast. There has been no significant interval change. IMPRESSION: BI-RAD 1 NEGATIVE There is no mammographic evidence of malignancy. A 1 year screeningmammogram is recommended. The patient has been or will be contacted. The patient will be entered into a reminder system with a target due dateof 1 year for her next screening exam. Electronically signed by: Dr. Avtar Betts M.D. sc/penrad:05/25/2018 08:18:04 Titrator: Elisabeth ESPINOZA(R)(M), [facility] letter sent: Normal Exam Reading location: [facility] BI-RADS: 1 Negative [EOD] Cecilio Villaseñor MD IMG MAMMO PROCEDURES Final Result * PAP SMEAR (09/09/2014) Pap smear Normal Historical Provider HEALTH MAINTENANCE Final Result * COLONOSCOPY (05/01/2010) Colonoscopy Unknown Historical Provider HEALTH MAINTENANCE Final Result from Last 3 Months or Most Recently Relevant to Health Maintenance Insurance [facility] [employer] Advance Directives For more information, please contact: [phone] * Full Code (Latest Code Status on File) Date Activated Date Inactivated Comments 01/31/2024 8:30 PM 02/07/2024 4:27 PM * Full Code Date Activated Date Inactivated Comments 11/17/2023 8:37 PM 11/23/2023 8:49 PM Care Teams Home Health Assistant Relationship Specialty Start Date End Date Elliott Valente MD PCP - General Family Medicine 03/30/22 Jany Mariee RN [address] [place] [address] [address] [place] [address] Negative Restorer 02/08/24
--- OUTSIDE RECORDS SUMMARY | 2024-07-26 07:36 | XMS_ITS | Encounter Summary ---
Author Organization [facility] Facility Care Team Providers Care Cone Worker Name Role Phone Cecilio Villaseñor MD Primary Care Provider [phone] Todd Cabrales MD Primary Care Provider [phone] Elliott Valente MD Primary Care Provider [phone] Sammi Chanel [facility] Unavailable [phone] Amy Sanchez CDE Unavailable [phone] Cristiane Kam RN Unavailable [phone] Cristiane Kam RN Unavailable [phone] Miri Rincon [facility] Unavailable [phone] Jany Mariee RN Unavailable [phone] Sabiha Jimenez [facility] Unavailable [phone] Encounter Details Date Type Department Care Team (Latest Contact Info) Description 11/10/2016 Orders Only [facility] CLINCONV ProviderKanwal MD [address] [place] [id number] Social History Tobacco Use Types Packs/Day Years Used Date Smoking Tobacco: Never Assessed Comments Unknown Sex and Gender Information Value Date Recorded Sex Assigned at Not on file Legal 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 encounter Care Teams Cone Worker Relationship Specialty Start Date End Date Cecilio Villaseñor MD [address] [place] [address] PCP - General 01/12/11 01/07/19 Todd Cabrales MD [facility] [address] PCP - General Family Medicine 01/08/19 03/29/22 Elliott Valente MD [address] [place] [address] PCP - General Family Medicine 03/30/22 Sammi Chanel, Tasha [address] [place] [address] [address] [place] [address] Pharmacist Pharmacy 01/18/23 02/16/23 Amy Sanchez CDE [address] [place] [address] [address] [place] [address] Crocheter 07/06/23 07/20/23 Cristiane Kam, RN [address] [place] [address] [address] [place] [address] Semi Conductor Assembler 07/06/23 07/13/23 Cristiane Kam, RN [address] [place] [address] [address] [place] [address] Semi Conductor Assembler 07/14/23 08/02/23 Miri Rincon, AUTOMOTIVE FUEL INJECTION SERVICER [address] [place] [address] [place] [address] It Compliance Manager 01/24/24 03/25/24 Jany Mariee, KARIME [address] [place] [address] [address] [place] [address] Semi Conductor Assembler 02/08/24 Sabiha Jimenez, [address] [place] [address] Pharmacist Pharmacy 02/20/24 02/20/24 documented as of this encounter
--- OUTSIDE RECORDS SUMMARY | 2024-07-26 07:36 | XMS_ITS | Clinical Summary ---
Author Organization [facility] at [facility] Address [address] [place] [address] Care Team Providers Care Ship Manager Name Role Phone Elliott Valente MD Primary Care Provider [phone] Jany Mariee RN Unavailable [phone] Allergies Active Allergy Reactions Criticality Noted Date [...] IN THE MORNING AND 2 AT BEDTIME Active meloxicam (MOBIC) 15 mg tabletIndications :Primary osteoarthritis of both knees TAKE 1 TABLET (15 MG TOTAL) BY MOUTH DAILY. 90 tablet 3 024 2024 Active pen needle, diabetic (Unifine Pentips) 32 gauge x 5/32 needleIndications :Type 2 diabetes mellitus with peripheral neuropathy (HCC) Twice daily. Needs 4 mm 100 each 11 Active ergocalciferol (VITAMIN D) 50,000 unit capsule Take 1 capsule (50,000 Units total) by mouth once a week 12 capsule 4 Active gabapentin (NEURONTIN) 300 mg capsule Take 1 capsule (300 mg total) by mouth daily 90 capsule 3 Active ipratropium-albut Roro (DUO-NEB) 0.5-2.5 mg/3 mL [...] (three) times a day 270 tablet 3 Active lancets miscIndications:T ype 2 diabetes mellitus with peripheral neuropathy (HCC) Test tid 300 each 3 Active furosemide (LASIX) 20 mg tablet Take [...] within 12 hours or as directed by . Active montelukast (SINGULAIR) 10 mg tablet Take 1 tablet (10 mg total) by mouth nightly 2024 Active traMADoL 100 mg tabletIndications :Pain Take 100 mg by mouth every 6 (six) hours as needed (pain) 120 tablet Active busPIRone (BUSPAR) 7.5 mg tabletIndications :Anxiety TAKE 1 TABLET BY MOUTH 2 TIMES A DAY. 180 tablet 3 Active insulin glargine 100 unit/mL (3 mL) pen for injectionIndicati ons:Type 2 diabetes mellitus with peripheral neuropathy (HCC) 35 units in am and 40 units at bedtime 45 mL 4 Active semaglutide (Ozempic) 0.25 mg or 0.5 mg (2 mg/3 mL) pen injector injection Inject 0.5 mg under the skin every 7 days 2 mL 2 Active fluticasone-umecl idin-vilanter (TRELEGY ELLIPTA) 100-62.5-25 mcg inhalerIndication s:Please dispense 90 day Inhale 1 puff daily 24 each 3 Active semaglutide (OZEMPIC) 1 mg/dose (4 mg/3 mL) pen injector injectionIndicati ons:Type 2 diabetes mellitus with peripheral neuropathy (HCC) Inject 0.75 mL (1 mg total) under the skin every 7 days 3 mL 2 025 2024 Discontinued fluticasone-umecl idin-vilanter (TRELEGY ELLIPTA) 100-62.5-25 mcg inhalerIndication s:Moderate persistent asthma without complication Inhale 1 puff daily 28 each 025 2024 Discontinued fluticasone-umecl idin-vilanter (TRELEGY ELLIPTA) 100-62.5-25 mcg inhalerIndication s:Moderate persistent asthma without complication Inhale 1 puff daily 28 each 025 2024 Discontinued(R eordpablito) fluticasone-umecl idin-vilanter (TRELEGY ELLIPTA) 100-62.5-25 mcg inhalerIndication [...] [place]. Assessment & Plan (06/24/2024 11:55 AM PORT PATROL OFFICER): The patient continue with Wixela one puff twice a day. Patient will continue with Singulair. Seasonal allergic rhinitis due to pollen 024 Overview (09/22/2023): conditoin chroinc adn at goal continue berny zyrtec and the singular Failed total knee arthroplasty 07/12/2022 Overview (07/12/2022): Added automatically from request for surgery [id number] ENRIQUE (generalized anxiety disorder) 12/31/2020 Assessment & [...] 08/24/2015 Assessment & Plan (06/24/2024 11:55 AM PORT PATROL OFFICER): I have ordered the patient new CPAP [...] months Assessment & Plan (06/01/2022 2:19 PM PORT PATROL OFFICER): The patient continues to benefit from CPAP [...] needed. Assessment & Plan (06/01/2022 2:19 PM PORT PATROL OFFICER): The patient has a history of asthma [...] benefit of other non-opioid pain therapies. Immunization: [id number]: Highly Recommended [id number]: Highly Recommended PCV20: Highly Recommended Influenza: Highly [...] Not Applicable. Subsequent Annual Wellness Visit: Annually Encounters Date Type Department Care Team Description 06/24/2024 11:30 AM PORT PATROL OFFICER Office Visit [facility] [address] [address] Lupe Walters NP SUKUMAR (obstructive sleep apnea) (Primary Dx); Moderate persistent asthma without complication 06/24/2024 Telephone [facility] [address] [address] Chase Levin MD Orders Only 05/17/2024 Telephone [facility] at [address] [place] [address] Elliott Valente MD Medical Question/Miscellaneou s from Last 3 Months Immunizations Immunization Administration Dates Next Due Flucelvax [...] Patient decision),04/28/2023(Deferred: Patient decision),03/01/2022(Deferred: Other),12/30/2021(Deferred: Patient decision),03/06/2021 [employer] (J&[employer]) SARS-CoV-2 Vaccination 07/28/2020 PPD TEST 12/08/2023,11/29/2023 Tdap 01/10/2019 Tetanus Toxoid, Unspecified 01/10/2019 ZOSTER Recombinant 11/08/2018,06/05/2018 Zoster, unspecified 11/08/2018,06/05/2018 Surgical History Surgery Date Site/Laterality Comments LAPAROTOMY exploratory laparotomy APPENDECTOMY Appendectomy CHOLECYSTECTOMY Cholecystectomy BACK SURGERY Back surgery KNEE ARTHROPLASTY 05/01/2004 - 04/30/2005 Bilateral Knee replacement CARPAL TUNNEL RELEASE Bilateral SECTION 05/01/1991 - 04/30/1992 JOINT REPLACEMENT 05/01/2014 - 04/30/2015 TUBAL LIGATION 05/01/1991 - 04/30/1992 OOPHORECTOMY Bilateral Medical History Medical History Date Comments Hx Other Medical x10 Hx Other Medical loss Hx Other Medical Miscarriage Hx Other Medical premature and 4 h later Pancreatitis 1986 Pancreatitis Hx Other Medical 2010 elevated lipase Hypertension Hyperlipidemia Diabetes mellitus (HCC) Obesity Sleep difficulties Depression Asthma Osteoarthritis GERD (gastroesophageal reflux disease) Anxiety Unknown Osteoporosis Clotting disorder Factor V Sleep apnea Diabetic peripheral neuropathy (HCC) Factor V Leiden DVT (deep venous thrombosis) ([facility]) 5 clots in 2006 due to Factor 5 clotting disorder after rotator cuff surgery PONV (postoperative nausea and vomiting) Difficult intravenous access Family History Medical History Relation Name Comments Heart attack Father cortney Myocardial infa rction; Cause of : Myocardial infarction Thyroid disease Father's Brother Arthritis Mother jessica Coronary artery disease Mother jessica Karoline nary artery disease; Heart disease Mother jessica Hypertension Mother jessica Stroke Mother jessica Diabetes Mother's Brother Dakota ferguson Diabetes type II Other 1 Family hist ory of Diabetes -Type 2; Other Other 2 Family history of Cancer -rectal; Breast cancer Sister 1 bonifacio Cancer Sister 1 bonifacio Clotting disorder Sister 1 bonifacio Diabetes type II Sister 1 bonifacio Miscarriages / Stillbirths Sister 1 bonifacio No Known Problems Son Relation Name Status Comments Brother 1 Alive Brother 2 Alive Father cortney (Age 75) Father's Brother Mother jessica Mother's Brother Dakota ferguson Other 1 Other 2 Sister 1 bonifacio Alive Sister 2 Alive Son Alive Social History Tobacco Use Types Packs/Day Years Used Date Smoking Tobacco: Former Cigarettes 0.1 2 0 05/01/2000 - 05/01/2001 Smokeless Tobacco: Never Tobacco Cessation:Counseling Given: Not Answered Alcohol Use Standard Drinks/Week Comments Not Currently 0 (1 standard drink = 0.6 oz pur e alcohol) [facility] Utilities Answer Date Recorded In the past 12 months has [employer], gas, oil, or water [employer] threatened to shut off services in your [...] week 02/01/2024 How often do you attend [facility] or scientologist services? Never 02/01/2024 Do you belong to any clubs o r organizations such as moravian groups, unions, fraternal or athletic groups, or [...] staff should administer the PHQ-9) 6 09/11/2023 [facility] - Occupational Stress [...] any time in the past 12 m [facility], were you homeless or living in a [facility] (including now)? No 02/01/2024 Personal Safety Answer [...] on file Legal Sex Female 8:39 PM PORT PATROL OFFICER Gender Identity Not on file Sexual Orientation Not on file Occupation Industry Job Start Date Job End Date Disabled Not on file Not on file Not on file Obstetrics History Para Term AB IAB SAB Ectopic Multiple Livin g Live Births 10 4 2 2 6 6 Date Outcome GA Total Labor Labor/2nd/3rd Weight Sex Type Anes PTL Molly A1 A5 Name Clin Term Term SAB SAB SAB SAB SAB SAB Last Filed Vital Signs Vital Sign Reading Time Taken Comments Blood Pressure 124/72 06/24/2024 11:26 AM PORT PATROL OFFICER Pulse 99 06/24/2024 11:26 AM PORT PATROL OFFICER Temperature 36.7 C (98.1 F) 06/24/2024 11:26 AM PORT PATROL OFFICER Respiratory Rate 18 06/24/2024 11:2 6 AM PORT PATROL OFFICER Oxygen Saturation 95% 06/24/2024 11: 26 AM PORT PATROL OFFICER Inhaled Oxygen Concentration - - Weight 131.5 kg (290 lb) 06/24/2024 11: 26 AM PORT PATROL OFFICER Pt verbalized. Height 162.6 cm (5' 4 ) 06/24/2024 11:2 6 AM PORT PATROL OFFICER Body Mass Index 49.78 06/24/2024 11:26 AM PORT PATROL OFFICER Plan of Treatment Health Maintenance Due Date Last Done Comments Osteoporosis Screening-Bone Density Scan 1955 Foot Exam 1955 Hepatitis B Screening 12/26/1975 Pneumococcal vaccine 65+ (1 of 2 - PCV) 1976 Breast Cancer Screening-Mammogram 05/24/2019 05/24/2018, 05/01/2018, 02/25/2016, Additional history exists Dilated Eye Exam 01/22/2022 01/22/2021, , 08/07/2018 Covid-19 Vaccine (3 - 2023-2 5 season) 2023 03/06/2021, 07/28/2020 Hemoglobin A1C 05/20/2024 11/18/2023, 05/01, 08/18/2022, Additional history exists Depression Screening 09/14/2024 09/15/2023, 09/15/2023, 04/28/2023, Additional history exists Well Visit 65+ 09/14/2024 09/15/2023, 12/31, 12/31/2020, Additional history exists Albumin Creatinine Ratio, Urine 09/20/2024 09/21/2023, 01/21/2022, 01/05/2021 Lipid Panel 11/17/2024 11/18/2023, 08/30, 05/18/2023, Additional history exists eGFR 02/02/2025 02/03/2024, 100 06/2023, 11/19/2023, Additional history exists Fall Risk Assessment 02/05/2025 02/06/2024, 09/15/2023, 01/21/2022, Additional history exists Colon Cancer Screening-DNA Stool 08/09/2025 08/09/2022, 07/24/2019, 05/01/2010 DTaP/Tdap/Td Vaccine (3 - Td or Tdap) 05/08/2034 05/08/2024, 01/10/2019 Colon Cancer Screening-CT Colonography Discontinued 05/01/2010 Colon Cancer Screening-Colonoscopy Discontinued 05/01/2010 Colon Cancer Screening-Sigmoidoscopy Discontinued 05/01/2010 Cervical Cancer Screening Discontinued 09/09/2014 Zoster Vaccine Completed 11/08/2018, 10/29, 06/05/2018, Additional history exists Hepatitis C Screening Completed 06/21/2019 Colon Cancer Screening-FIT Discontinued 08/09, 07/24/2019, 05/01/2010 Influenza Vaccine Completed 02/07/2024, , 03/06/2021, Additional history exists Procedures Procedure Name Priority Date/Time Associated Diagnosis Comments EGFR Routine 02/03/2024 8:06 AM CDT HEMOGLOBIN A1C Routine 11/18/2023 2:48 AM CDT LIPID PANEL Routine 11/18/2023 2:48 AM CDT ALBUMIN CREATININE RATIO, URINE Routine 09/21/2023 STOOL DNA COLOGUARD Routine 08/09/2022 12:14 PM CDT Screening for colon cancer DIABETIC EYE EXAM Routine 01/22/2021 HEPATITIS C ANTIBODY Routine 06/21/2019 10:05 AM PORT PATROL OFFICER Medicare annual wellness visit, subsequent SCREENING MAMMOGRAM BILATERAL W MARTÍNEZ Routine 05/24/2018 4:18 PM PORT PATROL OFFICER HM PAP SMEAR Routine 09/09/2014 COLONOSCOPY Routine 05/01/2010 from Last 3 Months [...] 8:06 AM CDT 02/03/2024 8:44 AM CDT us Azalia Cook NP LAB BLOOD ORDERABLES Final Result Performing Organization Address [facility] de Phone Number [address] [address] * (ABNORMAL) Hemoglobin A1c (11/18/2023 2:48 AM CDT) Hgb A1C 6.5(H) 4.0 - 5.6 % Estimated Average Glucose 140 mg/dL [facility] Comment: The ADA recommends reporting an estimated Average Glucose (eAG) with all Hemoglobin A1c results using the equation derived from a study of 507 normal and diabetic adults. Minority populations were underrepresented and children were not included. (Diabetes Care 31:1433-7183, 2008). The eAG is not equivalent to a fasting glucose. Blood 11/18/2023 2:48 AM CDT 11/18/2023 3:03 AM CDT Jay Peña MD LAB BLOOD ORDERABLES Final Result Performing Organization Address [facility] de Phone Number [address] [address] * Lipid panel (11/18/2023 2:48 AM CDT) [...] on 2017. Triglycerides 74 <=149 mg/dL [facility] Comment: Interpretive Data Ages < [...] 2017. LDL, calculated 34 <=129 mg/dL [facility] WHITE Comment: Interpretive Data Ages [...] on 2017. Non-HDL Cholesterol 49 mg/dL [facility] WHITE Comment: Interpretive Data Ages [...] BLOOD ORDERABLES Final Result Performing Organization Address City/[facility]/ZIP Co de Phone Number [facility] [address] [facility] Department [place] [address] * Albumin Creatinine Ratio, Urine (09/21/2023) SCRIBED Creatinine, Urine 32 20 - 275 EXTERNAL LAB SCRIBED Microalbumin 1.0 0 - 29 EXTERNAL LAB SCRIBED Micro ACR, Urine 0 EXTERNAL LAB SCRIBED Microalb/Creat Ratio 31 EXTERNAL LAB Urine Kanwal Provider LAB URINE ORDERABLES Leydi l Result Performing Organization Address [facility] Co de Phone Number EXTERNAL LAB * Stool DNA - Cologuard (08/09/2022 12:14 PM CDT) Stool DNA - Cologuard Negative Negative Expan (CLIA #:[id number]) Comment: NEGATIVE TEST RESULT. A negative Cologuard [...] colonoscopy. (Michael Esqueda, N Engl J Med 2014;370(14):4919-8509) The normal value (reference range) for this assay is negative. COLOGUARD RE-SCREENING RECOMMENDATION: Periodic colorectal cancer screening is an important part of preventive healthcare for asymptomatic individuals at average risk for colorectal cancer. Following a negative Cologuard result, the [place] [employer] Society and U.S. Multi-Society Task Force screening guidelines recommend a Cologuard re-screening interval of 3 years. References: [place] [employer] Guideline for Colorectal Cancer Screening: https://www.cancer.org/cancer/uvlfi-glqjen-gkoaun/wqjpznmrq-iaoklkkud-arjwrgz/ac s-rec ommendations.html.; Donte DK, Bharat ALCANTAR, Candace VazquezK, Colorectal Cancer Screening: Recommendations for Physicians and Patients from the U.S. Multi-Society Task Force on Colorectal Cancer Screening , Am J Gastroenterology 2017; 112:9498-0603. TEST DESCRIPTION: Composite algorithmic analysis of stool [...] colonoscopy. (Michael Esqueda, N Engl J Med 2014;370(14):9164-8914.) Cologuard may produce a false negative or false positive result (no colorectal cancer or precancerous polyp present at colonoscopy follow up). A negative Cologuard test result does not guarantee the absence of CRC or advanced adenoma (pre-cancer). The current Cologuard screening interval is every 3 years. ([place] [employer] Society and U.S. Multi-Society Task Force). Cologuard performance data in a 10,000 patient pivotal study using colonoscopy as the reference method can be accessed at the following location: www.[employer].com/results. Additional description of the Cologuard test process, warnings and precautions can be found at www.cologuard.com. Stool 08/09/2022 12:1 4 PM CDT 08/10/2022 7:48 PM CDT Elliott Valente MD LAB BODY FLUIDS AND STOOLS ORDER ISABEL Final Result Performing Organization Address [facility] Co de Phone Number [employer] (CLIA #:[id number]) [address] [place] [address] * Diabetic Eye Exam (01/22/2021) Kanwal Delcid MD HEALTH MAINTENANCE Final Result * Hepatitis C antibody (06/21/2019 10:05 AM PORT PATROL OFFICER) Hep C Ab NONREACT NONREACTIVE [facility] Comment: Siemens CentaurXP using PK (chemiluminescent [...] method. Blood specimen (specimen) 06/21/2019 10:05 AM PORT PATROL OFFICER 06/21/2019 12:21 PM PORT PATROL OFFICER Narrative Resulting Agency Comment CLI Todd Cabrales MD LAB MICROBIOLOGY - GENERAL EZEQUIEL SCANLON Final Result Performing Organization Address City/[facility]/ZIP Co de Phone Number [facility] [address] [place] [address] * Screening Mammogram Bilateral W Martínez (05/24/2018 4:18 PM PORT PATROL OFFICER) Anatomical Region Laterality Modality Breast Bilateral Mammography 05/24/2018 4:18 PM PORT PATROL OFFICER Impressions 05/25/2018 8:18 AM PORT PATROL OFFICER BI-RAD 1 NEGATIVE There is no mammographic evidence of malignancy. A 1 year screening mammogram is recommended. The patient has been or will be contacted. The patient will be entered into a reminder system with a target due date of 1 year for her next screening exam. Electronically signed by: Dr. Avtar Betts M.D. nh/penrad:05/25/2018 08:18:04 Jailer Chief: Elisabeth ESPINOZA(Chip)(M), [facility] letter sent: Normal Exam Reading location: [facility] BI-RADS: 1 Negative [EOD] Narrative 05/25/2018 8:18 AM PORT PATROL OFFICER - MG BILATERAL DIGITAL SCREENING MAMMOGRAM 3D/2D [...] dated: 02/25/2016 mammogram and 02/10/2015 mammogram - [facility]. BREAST TISSUE: The tissue of both breasts [...] dated: 02/25/2016 mammogram and 02/10/2015 mammogram - [facility]. BREAST TISSUE: The tissue of both breasts [...] Electronically signed by: Dr. Avtar Betts M.D. ky/penrad:05/25/2018 08:18:04 Jailer Chief: Elisabeth ESPINOZA(Chip)(), [facility] letter sent: Normal Exam Reading location: [facility] BI-RADS: 1 Negative [EOD] Cecilio Villaseñor MD IMG MAMMO PROCEDURES Final Result * PAP SMEAR (09/09/2014) Pap smear Normal Historical Provider HEALTH MAINTENANCE Final Result * COLONOSCOPY (05/01/2010) Colonoscopy Unknown Historical Provider HEALTH MAINTENANCE Final Result from Last 3 Months or Most Recently Relevant to Health Maintenance Insurance [facility] Member Subscriber Plan / Payer (Ef fective 2019-Present) Name:Roxana Kaminski Relation to Subscriber:Self Name:Roxana Kaminski Payer ID:[id number] (NAIC) Type:MEDICARE RISK OTHER Address: [place] [id number] MEDICARE Advance Directives For more information, please contact: [phone] * Full Code (Latest Code Status on File) Date Activated Date Inactivated Comments 01/31/2024 8:30 PM 02/07/2024 4:27 PM * Full Code Date Activated Date Inactivated Comments 11/17/2023 8:37 PM 11/23/2023 8:49 PM Care Teams Ship Manager Relationship Specialty Start Date End Date Elliott Valente MD PCP - General Family Medicine 03/30/22 Jany Mariee RN [address] [place] [address] [address] [place] [address] Communications Tech 02/08/24
--- OUTSIDE RECORDS SUMMARY | 2024-07-26 07:36 | XMS_ITS | Encounter Summary ---
Author Organization [facility] Care Team Providers Care Baggage Security Checker Name Role Phone Cecilio Villaseñor MD Primary Care Provider Todd Cabrales MD Primary Care Provider [phone] Elliott Valente MD Primary Care Provider [phone] Sammi Chanel [facility] Unavailable [phone] Amy Sanchez CDE Unavailable [phone] Cristiane Kam RN Unavailable [phone] Cristiane Kam RN Unavailable [phone] Miri Rincon [facility] Unavailable [phone] Jany Mariee RN Unavailable [phone] Sabiha Jimenez [facility] Unavailable [phone] Encounter Details Date Type Department Care Team (Latest Contact Info) Description 05/19/2017 Orders Only [facility] CLINCONV ProviderKanwal MD [address] [place] [address] Social History Tobacco Use Types Packs/Day Years Used Date Smoking Tobacco: Never Assessed Comments Unknown Sex and Gender Information Value Date Recorded Sex Assigned at Not on file Legal Sex Female 8:39 PM HEALTHCARE SPECIALIST Gender Identity Not on file Sexual Orientation Not on file documented as of this encounter Plan of Treatment Not on file documented as of this encounter Procedures Procedure Name Priority Date/Time Associated Diagnosis Comments SCAN - LABS 05/19/2017 12:00 AM HEALTHCARE SPECIALIST documented in this encounter Results * SCAN - LABS (05/19/2017 12:00 AM HEALTHCARE SPECIALIST) Narrative 05/19/2017 12:00 AM HEALTHCARE SPECIALIST Ordered by an unspecified provider. us Historical Provider Final Res ult documented in this encounter Visit Diagnoses Not on filedocumented in this encounter Additional Health Concerns Infection Onset Date Last Indicated Resolved Time COVID: Suspected 04/23/2020 04/23/2020 05/07/2020 3:06 AM HEALTHCARE SPECIALIST documented as of this encounter Care Teams Baggage Security Checker Relationship Specialty Start Date End Date Cecilio Villaseñor MD [address] [facility] [address] [address] [place] [address] PCP - General 01/12/11 01/07/19 Todd Cabrales MD [facility] [facility] [address] [place] [address] PCP - General Family Medicine 01/08/19 03/29/22 Elliott Valente MD [facility] [facility] [address] [place] [address] PCP - General Family Medicine 03/30/22 Sammi Chanel RPh [address] [place] [address] [address] [place] [address] Pharmacist Pharmacy 01/18/23 02/16/23 Amy Sanchez CDE [address] [place] [address] [address] [place] [address] Clinical Practitioner 07/06/23 07/20/23 Cristiane Kam RN [address] [place] [address] [address] [place] [address] Photographic Colorist 07/06/23 07/13/23 Cristiane Kam, RN [address] [place] [address] [address] [place], [place] [id number] Photographic Colorist 07/14/23 08/02/23 Miri Rincon, [address] [place] [address] Trim Machine Operator 01/24/24 03/25/24 Jany Mariee, RN [address] [place] [address] [address] [place] [address] Photographic Colorist 02/08/24 Sabiha Jimenez, [address] [place] [address] Pharmacist Pharmacy 02/20/24 02/20/24 documented as of this encounter
--- OUTSIDE RECORDS SUMMARY | 2024-07-26 07:36 | XMS_ITS | Clinical Summary ---
Author Organization [facility] Address [address] [place] [address] Care Team Providers Care Postal Worker Name Role Phone Elliott Valente MD Primary Care Provider [phone] Medications No known medications Active Problems No known active problems Social History Tobacco Use Types Packs/Day Years Used Date Smoking Tobacco: Never Assessed Comments Unknown Sex and Gender Information Value Date Recorded Sex Assigned at Not on file Legal Sex Female 8:15 PM CDT Gender Identity Not on file Sexual Orientation Not on file Last Filed Vital Signs Vital Sign Reading Time Taken Comments Blood Pressure 142/84 05/24/2018 4:09 PM INTERFACE ENGINEER Pulse 105 10/19/2017 3:09 PM CDT Temperature 36.6 C (97.9 F) 05/24/2018 4:09 PM INTERFACE ENGINEER Respiratory Rate - - Oxygen Saturation - - Inhaled Oxygen Concentration - - Weight 152.9 kg (337 lb) 01/18/2018 3:28 PM CDT Height 165.1 cm (5' 5 ) 05/24/2018 4:09 PM INTERFACE ENGINEER Body Mass Index 56.08 01/18/2018 3:28 PM CDT Plan of Treatment Health Maintenance Due Date Last Done Comments Colorectal Cancer Screening Colonoscopy (10 Years) 1957 Hepatitis C 12/26/1975 Mammogram Screening 1997 Annual Medicare Wellness Visit 2022 Dexa Scan (General) 2022 Pneumococcal Vaccine: 65+ Years (1 of 1 - PCV) 2022 COVID-19 Vaccine ( season) 2023 03/06/2021, 07/28/2020 Influenza Adult (#1) 2024 03/06/2021, 02/11/2020, 01/10/2019, Additional history exists DTaP, Tdap and Td Vaccines (2 - Td or Tdap) 01/10/2029 01/10/2019 RSV Immunization or 60+ Years (1 - 1-dose 75+ series) 2032 Zoster Vaccines Completed 11/08/2018, 06/05/2018 Meningococcal B Vaccine Aged Out No l onger eligible based on patient's age to complete this topic Meningococcal Vaccine Aged Out No lavon suleiman eligible based on patient's age to complete this topic RSV Immunizations Under 20 Months Aged Out No longer eligible based on patient's age to complete this topic Insurance [employer] Care Teams Postal Worker Relationship Specialty Start Date End Date Elliott Valente MD [address] [place] [id number] PCP - General FAMILY PRACTICE 08/30/22
--- OUTSIDE RECORDS SUMMARY | 2024-07-26 07:36 | XMS_ITS | Continuity of Care Document ---
Author Organization [facility] Address [address] [place] [address] Phone Care Team Providers Care Manager Roofing Name Role Phone Rufus Austinpablito Unavailable Unavailable Advance Directives Directive Yes / No Effective Date File Name No Information Encounters Encounter Description Practice Location Reason(s) For Visit Diagnoses Date Provider Providers Copied on Encounter [facility], [address], [id number], [place] tel:[phone] [facility] No Information Dec-3 4 Normanaamir PearceRufus er. [address], [address], [place], [place], [id number] , [place]. tel:[phone] Family History Family Member Type Diagnosis Age At Onset No Information Payers Payer name Insurance type Covered constitution party ID Authoriza tion(s) No Information Social History Type Description Quantity Date Captured Comments Sex Female Smoking Status No Information Chief Complaint And Reason For Visit No [...]
--- NOTE | 2024-07-26 08:35 | ED_ITS ---
HPI - Extremity Problem General Chief complaint: Extremity Problem,Nontraumatic Stated complaint: Right knee pain Time Seen by Provider: 07/26/24 07:14 Source: patient Mode of arrival: EMS Limitations: no limitations History of Present Illness HPI Narrative: 68-year-old with a history of diabetes, morbid obesity, bilateral total knee arthroplasty done in 2004 in [facility] , presently single rehab here w ith the complaints of right knee pain. Patient states that she slipped while doing physical therapy 2 days ago started having severe pain behind her right knee since last night had an outpatient x-ray done at that long-term which showed prominent loosening of the femoral and tibial components of the right knee with the acquired varus deformity, fragmentation of the anterior cortex of the tibia of uncertain age. Patient now states that she is unable to bear weight on leg. Has no other complaints MD Complaint: joint paint Onset (ago): day(s) (2) Location: right and lower extremity Severity scale (1-10): 6 Quality: aching Radiation: none Relieving factors: immobilization Exacerbating factors: range of motion and weight bearing Associated symptoms: denies other symptoms Related Data Allergies Allergy/AdvReac Type Severity Reaction Status Date / Time cephalexin Allergy Intermediate Hives Verified 07/26/24 07:59 cortisone Allergy Intermediate Hives Verified 07/26/24 07:59 morphine Allergy Intermediate Hives Verified 07/26/24 07:59 Review of Systems Review of Systems: All systems reviewed & are unremarkable except as noted in HPI and below Constitutional: Constitutional: Reports no additional constitutional complaints Eyes: Eyes: Reports no additional eye complaints ENT: Reports system reviewed and no additional complaints, except as documented Cardiovascular: Cardiovascular: Reports no additional cardiovascular complaints Respiratory: Respiratory: Reports no additional respiratory complaints Gastrointestinal: Gastrointestinal: Reports no additional gastrointestinal complaints Musculoskeletal: Musculoskeletal: Reports as per HPI Neurologic: Reports system reviewed and no additional complaints, except as documented Endocrine: Endocrine: Reports no additional endocrine complaints Exam Narrative: GENERAL: Well-appearing, morbidly obese, and in no acute distress. HEAD: Normocephalic, atraumatic. EYES: PERRLA and EOMI. NECK: Supple. CHEST: Clear to auscultation. No respiratory distress. HEART: Regular rate and rhythm. No murmur heard. Normal peripheral pulses. ABDOMEN: Soft, nontender, nondistended, normal active bowel sounds. EXTREMITIES: Examination of the right shows no deformity tender on palpation posteriorly. Painful ROM SKIN: Warm, dry, no rash. NEURO: No focal deficits. Alert and oriented x3. PSYCH: Normal mood and affect. Course Course Emergency Course: X-ray showed a periprosthetic fracture of the tibial cough and. Informed patient about the findings. Discussed with the [facility] trauma , will accept the pt to ER pt agreeable with Transfer. Discussed with Dr. Andersen at [facility] will accept the pt. Vital Signs Vital signs: Vital Signs Temperature 35.5 C L 07/26/24 07:03 Pulse Rate 97 07/26/24 07:03 Respiratory Rate 14 07/26/24 07:03 Blood Pressure 134/98 H 07/26/24 07:03 Pulse Oximetry 98 07/26/24 07:03 Temperature 36.4 C 07/26/24 07:25 Pulse Rate 97 07/26/24 07:03 Respiratory Rate 14 07/26/24 07:03 Blood Pressure 134/98 H 07/26/24 07:03 Pulse Oximetry 98 07/26/24 07:03 MDM - Extremity (Nontraumatic) Imaging Data Radiologist's impression: ITS Impressions Knee X-Ray 07/26/24 07:58 IMPRESSION: 1. Total right knee arthroplasty with loosened tibial component and comminuted periprosthetic fracture of proximal tibia. 2. Large knee joint effusion. Consider knee joint aspiration to exclude infection. Discharge Plan Discharge Clinical Impression: Nancy-prosthetic fracture of proximal tibia Qualifiers: Encounter type: initial encounter Qualified Code(s): M97.8XXA - Periprosthetic fracture around other internal prosthetic joint, initial encounter; Z96.659 - Presence of unspecified artificial knee joint Patient Disposition: Acute Care Hospital Condition: Stable Patient Language: Frisian Follow-up/Referrals: UNKNOWN,DOCTOR [Primary Care Provider] - Time of Disposition: 08:43
[2024-07-26 08:42] LABS: Basophils Percent Auto 0.6 % (0.2-1.2); Eosinophils Absolute Auto 0.2 K/mm3 (0-0.3); Eosinophils Percent Auto 2.3 % (0-4.4); Hematocrit 44.3 % (37.0-47.0); Hemoglobin 13.9 g/dL (12.0-15.0); Immature Granulocyte Absolute 0.02 K/mm3 (0.00-0.031); Immature Granulocyte Percent A 0.3 % (0-0.5); Lymphocytes Absolute Auto 1.54 K/mm3 (0.9-3.2); Lymphocytes Percent Auto 21.8 % (18.3-44.2); Mean Corpuscular HGB Conc 31.4 g/dl (32-36); Mean Corpuscular Hemoglobin 28.3 pg (26-34); Mean Corpuscular Volume 90.2 fl (80-100); Mean Platelet Volume 10.6 fl (7.4-10.4); Monocytes Absolute Auto 0.5 K/mm3 (0.1-0.6); Monocytes Percent Auto 6.9 % (2.6-8.5); Neutrophils Absolute Auto 4.8 K/mm3 (1.3-6.7); Neutrophils Percent Auto 68.1 % (45.5-73.1); Platelet Count Result 277 k/mm3 (150-375); Red Blood Count 4.91 M/mm3 (4.2-5.4); Red Cell Distribution Width 16.6 % (11.5-14.5); White Blood Count 7.1 K/mm3 (4.5-10.0)
[2024-07-26 08:52] LABS: Alanine Aminotransferase 36 U/L (6-35); Albumin Level 3.4 g/dL (3.5-5.1); Alkaline Phosphatase 106 U/L (38-126); Anion Gap 8 mmol/L (4-12); Aspartate Amino Transferase 43 U/L (14-36); Bilirubin,Total 1.6 mg/dL (0.2-1.3); Blood Urea Nitrogen 13 mg/dL (7-17); Calcium 8.6 mg/dL (8.4-10.2); Carbon Dioxide 27 mmol/L (22-30); Chloride 106 mmol/L (98-107); Estimated CRCL calculation 129 ml/min; Estimated Glomerular Filt Rate > 60; Glucose 153 mg/dL (65-110); Potassium 4.1 mmol/L (3.4-5.0); Sodium 141 mmol/L (137-145)
[2024-07-26 08:56] LABS: INR 0.9; Prothrombin Time 12.8 Seconds (11.1-14.7)
[2024-07-26 09:42] VITALS: BP 156/86; PULSE 77; RESP 20; O2SAT 98
--- NOTE | 2024-07-26 09:48 | PC.NURSE ---
Ivonne, linux system administrator from [employer] called asking for update on pt. Requesting xray report to be faxed to [phone].
== END 2024-07-26 09:49 | disposition short-term general hospital (02) ==
PROVIDERS: Emergency Provider Family Medicine
DX: S82.101A Unspecified fracture of upper end of right tibia, initial encounter for closed fracture (principal); M97.11XA Periprosthetic fracture around internal prosthetic right knee joint, initial encounter; E11.9 Type 2 diabetes mellitus without complications; E66.01 Morbid (severe) obesity due to excess calories; Z68.43 Body mass index [BMI] 50.0-59.9, adult; Z96.653 Presence of artificial knee joint, bilateral; W01.0XXA Fall on same level from slipping, tripping and stumbling without subsequent striking against object, initial encounter
CPT/HCPCS: 36415; 73564; 80053; 85025; 85610; 99285

== ENCOUNTER 2024-08-07 14:51 | Inpatient (IN) | payer MEDICARE, MEDICAID, SELFPAY ==
[2024-08-07] VITALS (20 sets, daily range): BP systolic 84–148; BP diastolic 56–90; PULSE 63–102; RESP 11–22; TEMP 36.4–36.8; O2SAT 92–97; BMI 48.9
--- NOTE | ~2024-08-07 | CT_ITS ---
CT brain wo con Ordering provider: Gianna Zhu MD History: 68 years Female with . hallucinations visual . Comparison: None. Technique: CT of the head without contrast. Radiation reduction technique utilized. The dose-length p roduct was 681 mGy-cm. FINDINGS: BRAIN PARENCHYMA AND CSF SPACES: Mild leukoaraiosis and diffuse cortical atrophy. Mild atheromatous d isease. No midline shift, mass effect or hemorrhage. The brain parenchyma and CSF spaces are otherwi se normal. VISUALIZED PARANASAL SINUSES: Well aerated. MASTOIDS: Well aerated. BONES: The bones appear intact. SOFT TISSUES: Visualized nasopharynx is normal. Superficial soft tissues are normal. IMPRESSION: No acute intracranial findings. Reviewed, dictated and finalized at location A.
--- NOTE | ~2024-08-07 | US_ITS ---
US venous doppler [facility] - 08/10/2024 09:41 CDT History: 68 years old Female with bilateral lower extremity pain and swelling. Real-time sonographic images of the bilateral lower extremity venous system were obtained. Color Dop pler sonography and spectral waveform analysis were performed. No prior studies for comparison. Limited evaluation secondary to patient's body habitus. The bilateral sapheno-femoral junctions are patent. The bilateral common femoral, superficial femor al, popliteal and posterior tibial veins are compressible and without evidence of echogenic thrombus . Impression: Limited evaluation. No evidence of deep venous thrombosis Reviewed, dictated and finalized at location A. Impression: Limited evaluation. No evidence of deep venous thrombosis
--- NOTE | ~2024-08-07 | CT_ITS ---
CTA brain carotid Ordering provider: Faina Tay APRN History: . cva symptoms . Comparison: None. Technique: CT angiogram head and neck was performed following timed intravenous injection of contrast . Thin slice axial images and reformatted coronal images were obtained. Three dimensional reformatted images of the brain were also obtained using a [employer] workstation. Radiation reduction technique ut ilized.The dose-length product was 1730.58 mGy-cm. 100 ML Omnipaque 350 was given IV. FINDINGS: HEAD: --ANTERIOR AND MIDDLE CEREBRAL ARTERIES AND BRANCHES: Normal caliber and contour. --INTERNAL CAROTID ARTERIES: no significant stenosis. No occlusion. --BASILAR ARTERY AND BRANCHES: Normal caliber and contour. No atheromatous disease. --POSTERIOR CEREBRAL ARTERIES: Normal caliber and contour --POSTERIOR COMMUNICATING ARTERIES: visualized bilaterally with formation of the posterior cerebral a rteries. --ANEURYSM: None visualized. --BRAIN: Normal. Hypodensity extends automated there is the patient Roxana --BONES AND SUPERFICIAL SOFT TISSUES: Normal. --PARANASAL SINUSES AND MASTOIDS: Well aerated. NECK: Retropharyngeal position of both carotid arteries is seen. --RIGHT CERVICAL CAROTID SYSTEM: Normal caliber and contour. Percent stenosis per NASCET criteria is 0%. No carotid dissection. Otherwise, no significant atheromatous disease or stenosis of the cervica l carotid system. --LEFT CERVICAL CAROTID SYSTEM: Normal caliber and contour. Percent stenosis per NASCET criteria is 0%. No carotid dissection. Otherwise, no significant atheromatous disease or stenosis of the cervical carotid system. --VERTEBRAL ARTERIES: Normal caliber and contour. --SOFT TISSUES: Normal. --CERVICAL SPINE: Age appropriate degenerative changes. IMPRESSION: 1. Normal CTA head 2. CTA neck. Percent stenosis per NASCET criteria is 0%. Reviewed, dictated and finalized at location A.
--- NOTE | ~2024-08-07 | CT_ITS ---
CTA chest PE protocol Ordering provider: Gianna Zhu MD History: 68 years Female with . hypoxia; recent surgery dimer elev; heart failur . Comparison: None. Technique: CT angiogram chest was performed following timed intravenous injection of contrast. Thin s lice axial images and reformatted coronal images were obtained. Three dimensional reformatted images of the chest were also obtained using a [employer] workstation. . Automated exposure control and iterati ve reconstruction technique were employed. The dose-length product was 1114.67 mGy-cm. 100 mL Omnipaq ue 350 was given IV. Findings: PULMONARY ARTERIES: No pulmonary embolus. VISUALIZED THORACIC INLET: Normal. MEDIASTINUM: Aorta/coronary arteries: Mild atheromatous disease. Heart/other: The heart is slightly enlarged. Lymph nodes: No mediastinal or hilar adenopathy. LUNGS: Patchy areas of Groundglass appearance is seen in the lingula, left lower lobe and right upper lobe s uggestive of pneumonitis versus edema. No pulmonary nodules or masses. No pleural effusion.. No pneum othorax. VISUALIZED UPPER ABDOMEN: Fat stranding is seen in the mesentery which may be inflammatory. the visualized upper abdomen is normal. MUSCULOSKELETAL: Soft tissues: The superficial soft tissues are normal. Bones: Age appropriate degenerative changes of the spine. Dextroscoliosis. Kyphosis centered at the level of T12-L1. IMPRESSION: 1. No pulmonary embolism. 2. Cardiomegaly. 3. Patchy areas of groundglass appearance suggestive of pneumonia versus edema. Clinical correlation and follow-up advised. Reviewed, dictated and finalized at location A. IMPRESSION: 1. No pulmonary embolism. 2. Cardiomegaly. 3. Patchy areas of groundglass appearance suggestive of pneumonia versus edema . Clinical correlation and follow-up advised.
--- NOTE | ~2024-08-07 | XR_ITS ---
XR chest 1V portable Ordering provider: Suzanne Simpson MD History: 68 years Female with . dyspnea . Comparison: None. FINDINGS: MEDIASTINUM: The cardiac silhouette is moderately enlarged. LUNGS: No infiltrates, effusions or pneumothorax. OTHER: No free air under the diaphragm. Degenerative spine. Dextroscoliosis. IMPRESSION: Cardiomegaly. No acute cardiopulmonary pathology seen. Reviewed, dictated and finalized at location A.
--- NOTE | 2024-08-07 15:11 | ECG_ITS ---
Test Date: 2024-08-07 15:25:29 Measurements Intervals Richey Rate: 97 P: 58 AK: 158 QRS: 145 QRSD: 94 T: 14 QT: 370 QTc: 471 Interpretive Statements SINUS RHYTHM WITH OCCASIONAL VENTRICULAR PREMATURE COMPLEXES POSSIBLE LEFT ATRIAL ENLARGEMENT LEFT POSTERIOR FASCICULAR BLOCK BORDERLINE ST-T WAVE ABNORMALITY- ANTEROLAT/INF LEADS BASELINE ARTIFACT- I, II, AVR ABNORMAL ECG No previous ECG available for comparison Electronically Signed On 08-07-2024 15:36:04 CDT by Jeremy Corrales D.O.
[2024-08-07 15:30] LABS: Basophils Absolute Auto 0.1 K/mm3 (0.0-0.1); Basophils Percent Auto 0.4 % (0.2-1.2); Eosinophils Absolute Auto 0.1 K/mm3 (0-0.3); Eosinophils Percent Auto 0.6 % (0-4.4); Hematocrit 46.1 % (37.0-47.0); Hemoglobin 14.9 g/dL (12.0-15.0); Immature Granulocyte Absolute 0.05 K/mm3 (0.00-0.031); Immature Granulocyte Percent A 0.4 % (0-0.5); Lymphocytes Absolute Auto 1.37 K/mm3 (0.9-3.2); Lymphocytes Percent Auto 9.8 % (18.3-44.2); Mean Corpuscular HGB Conc 32.3 g/dl (32-36); Mean Corpuscular Hemoglobin 29.2 pg (26-34); Mean Corpuscular Volume 90.2 fl (80-100); Mean Platelet Volume 10.9 fl (7.4-10.4); Monocytes Absolute Auto 0.9 K/mm3 (0.1-0.6); Monocytes Percent Auto 6.1 % (2.6-8.5); Neutrophils Absolute Auto 11.6 K/mm3 (1.3-6.7); Neutrophils Percent Auto 82.7 % (45.5-73.1); Platelet Count Result 304 k/mm3 (150-375); Red Blood Count 5.11 M/mm3 (4.2-5.4); Red Cell Distribution Width 15.7 % (11.5-14.5)
[2024-08-07 15:46] LABS: Alanine Aminotransferase 22 U/L (6-35); Albumin Level 3.5 g/dL (3.5-5.1); Alkaline Phosphatase 91 U/L (38-126); Anion Gap 7 mmol/L (4-12); Aspartate Amino Transferase 20 U/L (14-36); Bilirubin,Total 1.3 mg/dL (0.2-1.3); Blood Urea Nitrogen 11 mg/dL (7-17); Calcium 8.7 mg/dL (8.4-10.2); Carbon Dioxide 27 mmol/L (22-30); Chloride 106 mmol/L (98-107); Estimated CRCL calculation 115 ml/min; Estimated Glomerular Filt Rate > 60; Glucose 78 mg/dL (65-110); Potassium 3.7 mmol/L (3.4-5.0); Sodium 140 mmol/L (137-145)
[2024-08-07 16:25] LABS: Alveolar/Arterial O2 Gradient 141.1 mmHg; Base Excess ABG -1.8 mEq/l (+/-2.0); Carboxyhemoglobin 0.8 % THb (0-2.0); Fractional Inspired Oxygen 36 %; HCO3 ABG 22.4 mEq/l (22.0-26.0); Methemoglobin ABG 0.1 %THb (0-1.5); Oxygen Content ABG 20.5 %vol (16.0-22.0); Oxygen Saturation ABG 94.8 % (95.0-100.0); Oxyhemoglobin 93.9 % THb (90.0-100.0); PCO2 ABG 36.8 mmHg (35.0-45.0); PO2 ABG 72.9 mmHg (80.0-100.0); PO2 FiO2 Ratio Arterial Blood 2.03 %; Reduced Hemoglobin 5.2 %THb (0-5.0); Total Hemoglobin 15.5 g/dL (12.0-18.0); pH ABG 7.402 (7.350-7.450)
[2024-08-07 16:27] LABS: Device NASAL CANNULA; Modified Allen's Test Pass; Site Drawn RIGHT RADIAL
--- NOTE | 2024-08-07 16:30 | PC.NURSE ---
pt told this RN she was having hallucinations. pt said she was seeing someone at her bedside and talking to them. no one is at pt bedside
[2024-08-07 16:39] LABS: NT Pro B Type Natriuretic Pept 1620 pg/mL (19.9-100)
[2024-08-07 16:44] LABS: D Dimer 0.69 ug/mL (<0.48)
--- NOTE | 2024-08-07 16:59 | ED.SOB ---
HPI - SOB/Dyspnea General Chief Complaint: Shortness of Breath/Dyspnea Stated Complaint: SOB Time Seen by Provider: 08/07/24 15:39 Source: patient, EMS and RN notes reviewed Mode of arrival: EMS History of Present Illness HPI Narrative: Patient presents with report of lethargy. She was noted to be hypoxic at the facility ranging anywhere from 82-87% by report on room air requiring supplemental oxygen by nasal cannula. It was also reported that her blood glucose was initially in the 70s and after being treated had slightly improved in the 80s. EMS had reported that she had peripheral cyanosis. Patient reports being fatigued and tired. She is having left arm pain as well as a sharp pain in her back. She had some pain in her right leg a few days ago. Patient was supposed to undergo a knee replacement but this did not happen. It is initially unclear whether surgery was attempted and failed or aborted prior to procedure. Patient states she is supposed to lose weight before surgical repair can be performed and she has been at the rehab facility. She reports having sleep apnea and is supposed to be on CPAP but it has not arrived. Otherwise she denies any underlying respiratory conditions. She denies any shortness of breath. Patient also endorses visual hallucinations. She states she knows that they do not exist but she has seen other people in objects in her room. She denies any auditory hallucinations. Former smoker, quit in 2001 Related Data Home Medications ?Medication ?Instructions ?Recorded ?Confirmed ?Last Taken ?Type acetaminophen 650 mg 1,300 mg PO Q12H 08/07/24 08/07/24 Unknown History tablet,extended release (Arthritis Pain Relief (acetaminophen) ER) baclofen 5 mg tablet 5 mg PO Q8H PRN muscle spasm 08/07/24 08/07/24 Unknown History buspirone 10 mg tablet 10 mg PO BID 08/07/24 08/07/24 Unknown History ergocalciferol (vitamin D2) 1,250 1,250 mcg PO WEEKLY 08/07/24 08/07/24 Unknown History mcg (50,000 unit) capsule escitalopram oxalate 10 mg tablet 15 mg PO DAILY 08/07/24 08/07/24 08/07/24 History (Lexapro) fluticasone 250 mcg-salmeterol 50 1 inh inhalation Q12H 08/07/24 08/07/24 Unknown History mcg/dose blistr powdr for inhalation furosemide 20 mg tablet 20 mg PO BID 08/07/24 08/07/24 Unknown History gabapentin 300 mg capsule 300 mg PO TID 08/07/24 08/07/24 Unknown History insulin lispro 100 unit/mL 5 unit subcut .with meals 08/07/24 08/07/24 Unknown History subcutaneous solution ipratropium 0.5 mg-albuterol 3 mg 3 ml inhalation QID PRN shortness 08/07/24 08/07/24 Unknown History (2.5 mg base)/3 mL nebulization of breath or wheezing soln lidocaine 4 % topical patch 1 patch topical DAILY 08/07/24 08/07/24 Unknown History loperamide 2 mg capsule 2 mg PO Q6H PRN loose stool 08/07/24 08/07/24 Unknown History (Anti-Diarrheal (loperamide)) loratadine 10 mg capsule (Allergy 10 mg PO HS 08/07/24 08/07/24 Unknown History Relief (loratadine)) meclizine 25 mg chewable tablet 12.5 mg PO Q8H PRN dizziness 08/07/24 08/07/24 Unknown History (Antivert) metformin 500 mg tablet 500 mg PO DAILY 08/07/24 08/07/24 Unknown History montelukast 10 mg tablet 10 mg PO QPM 08/07/24 08/07/24 Unknown History multivitamin (Daily Multi-Vitamin 1 tablet PO DAILY 08/07/24 08/07/24 Unknown History tablet) nystatin 100,000 unit/gram topical 1 applic topical TID 08/07/24 08/07/24 Unknown History powder (Nyamyc) omeprazole 40 mg capsule,delayed 40 mg PO DAILY 08/07/24 08/07/24 Unknown History release ondansetron 4 mg disintegrating 4 mg PO Q6H PRN nausea and vomiting 08/07/24 08/07/24 Unknown History tablet potassium chloride 20 mEq 20 meq PO TID 08/07/24 08/07/24 Unknown History tablet,extended release(part/cryst) semaglutide 0.25 mg or 0.5 mg (2 0.25 mg subcut WEEKLY 08/07/24 08/07/24 Unknown History mg/3 mL) subcutaneous pen injector (Ozempic) tramadol 50 mg tablet 50 mg PO Q6H PRN pain (scale score 04/09/25 04/09/25 Unknown History 4-6) vit C 250 mg-vit E 90 mg-zinc 40 1 tablet PO BID 08/07/24 08/07/24 Unknown History mg-copper 1 [id number] capsule (PreserVision AREDS-2) Allergies Allergy/AdvReac Type Severity Reaction Status Date / Time cephalexin Allergy Intermediate Hives Verified 08/07/24 15:11 cortisone Allergy Intermediate Hives Verified 08/07/24 15:11 morphine Allergy Intermediate Hives Verified 08/07/24 15:11 PMFSH Past Medical History Medical History Depression, unspecified Essential (primary) hypertension Other idiopathic peripheral autonomic neuropathy Other acute postprocedural pain Sleep apnea, unspecified Anxiety disorder, unspecified Generalized anxiety disorder Major depressive disorder, recurrent, moderate Hyperlipidemia, unspecified Morbid (severe) obesity due to excess calories Unspecified severe protein-calorie malnutrition Type 2 diabetes mellitus without complications Pain in right hip Constipation, unspecified Other asthma Tachycardia, unspecified Urinary tract infection, site not specified Diarrhea, unspecified Other specified disorders of bone density and structure, unspecified site Acute upper respiratory infection, unspecified Pain in right knee Candidiasis of skin and nail Instability of internal left knee prosthesis, subsequent encounter Family History Family History (Updated 08/07/24 @ 22:01 by Karyna Arellano RN) Father Heart attack Mother Heart valve disease Other Parents Social History Social History Social History: Smoking status: Former smoker Tobacco type: cigarettes Smoking end date: 05/01/01 Alcohol intake: never Substance use: never Substance use type: does not use Do You Feel Safe in your Home?: Yes Lack of Transportation: No Lack of Food: Never True Current Housing: I Have Housing Concerned About Future Housing: No Difficulty Paying Gas/Electric Bills: No Difficulty Paying for Meds: No Currently Unemployed: No Education: High School Diploma/GED Difficulty w/ Childcare or Family Care: No Additional living arrangements comments: [facility] [place] Spiritual care concerns: No Exam Narrative: GENERAL: Well-appearing, well-nourished, and in no acute distress. HEAD: Normocephalic, atraumatic. EYES: Non injected, non icteric ENT: Nares clear, no rhinorrhea or epistaxis. NECK: Supple. CHEST: Speaking in full sentences. No respiratory distress. Saturating 96% on 4 L nasal cannula. Lungs clear to auscultation the bilateral apices although full auscultation is limited due to body habitus and patient positioning. HEART: Regular rate and rhythm. . ABDOMEN: Soft, nondistended. EXTREMITIES: Well-healed surgical scar overlying right anterior knee. SKIN: Warm, dry, no rash. NEURO: No focal deficits. Alert and oriented x3. PSYCH: Normal mood and affect. Behavior: Calm, good eye contact, in no acute distress. Speech: Appropriate rate, quantity and volume. Endorses visual hallucinations. Course Vital Signs Vital signs: Vital Signs Temperature 97.6 F 08/07/24 14:53 Pulse Rate 63 08/07/24 14:53 Respiratory Rate 14 08/07/24 14:53 Blood Pressure 104/84 08/07/24 14:53 Pulse Oximetry 93 08/07/24 14:53 Oxygen Delivery Nasal Cannula 08/07/24 14:53 Oxygen Flow Rate 4 08/07/24 14:53 Temperature 97.3 F L 08/08/24 08:00 Pulse Rate 100 08/08/24 08:00 Respiratory Rate 18 08/08/24 08:00 Blood Pressure 139/76 08/08/24 08:00 Pulse Oximetry 97 08/08/24 10:00 Oxygen Delivery Nasal Cannula 08/08/24 10:00 Oxygen Flow Rate 4 08/08/24 10:00 MDM - SOB/Dyspnea MDM Narrative Medical decision making narrative: Patient presents with report of fatigue and lethargy. She was noted to be hypoxic on room air at the facility ranging from 82-87% on room air by report. EMS reported that she was cyanotic. Patient denies any underlying respiratory conditions other than sleep apnea for which she is supposed to be on CPAP. Currently at rehab facility not on oxygen. She is there to rehab due to issues with a right knee that needs replacement. In the emergency department she is afebrile with vital signs notable for hypoxia on room air is improvement on nasal cannula 4 L. The time of my bedside assessment she is saturating 96% on 4 L nasal cannula. Her BNP is elevated with no prior for comparison. This combined with cardiomegaly is concerning for acute heart failure however she does not appear with pulmonary edema on the chest x-ray or otherwise volume overloaded. Initially tried to administer antibiotics given patient flags for sepsis and vancoymycin was ordered Held off on cefepime given allergy to cephalexin. Patient's heart rate, blood pressure, lactic acid have been normal so lower suspicion for sepsis. Add azithromycin and Levaquin. The latter should also help with the urinary tract infection noted by the hospitalist (not definitieve given bacteria with moderate squamous cells and few WBCs but some evidence of leukocyte esterase/nitrate) so will treat. Troponin normal. Leukocytosis. Differential Diagnosis Differential diagnosis: Likely congestive heart failure, community acquired pneumonia, pulmonary embolism and other (Acute viral syndrome, CO2 narcosis, ACS; CVA, thyroid disorder, urinary tract infection) Lab Data Attestation: I reviewed the patient's lab results. Lab results narrative: Chemistry normal with normal renal function 08/08/24 05:13 08/08/24 05:13 Labs: Lab Results 08/07/24 08/07/24 08/07/24 Range/Units 15:23 15:23 15:24 WBC 14.0 H (4.5-10.0) K/mm3 RBC 5.11 (4.2-5.4) M/mm3 Hgb 14.9 (12.0-15.0) g/dL Hct 46.1 (37.0-47.0) % MCV 90.2 (80-100) fl MCH 29.2 (26-34) pg MCHC 32.3 (32-36) g/dl RDW 15.7 H (11.5-14.5) % Plt Count 304 (150-375) k/mm3 MPV 10.9 H (7.4-10.4) fl Immature Gran % (Auto) 0.4 (0-0.5) % Neut % (Auto) 82.7 H (45.5-73.1) % Lymph % (Auto) 9.8 L (18.3-44.2) % Eddy % (Auto) 6.1 (2.6-8.5) % Eos % (Auto) 0.6 (0-4.4) % Baso % (Auto) 0.4 (0.2-1.2) % Lymph # (Auto) 1.37 (0.9-3.2) K/mm3 Eddy # (Auto) 0.9 H (0.1-0.6) K/mm3 Eos # (Auto) 0.1 (0-0.3) K/mm3 Baso # (Auto) 0.1 (0.0-0.1) K/mm3 Abs Immat Gran (auto) 0.05 H (0.00-0.031) K/mm3 Absolute Neuts (auto) 11.6 H (1.3-6.7) K/mm3 Absolute Nucleated RBC 0.000 (0.0-0.012) K/mm3 Nucleated RBC % 0.0 (0.0-0.2) % D-Dimer 0.69 H (<0.48) ug/mL Methemoglobin (0-1.5) %THb Sodium 140 (137-145) mmol/L Potassium 3.7 (3.4-5.0) mmol/L Chloride 106 (98-107) mmol/L Carbon Dioxide 27 (22-30) mmol/L Anion Gap 7 (4-12) mmol/L BUN 11 (7-17) mg/dL Creatinine 0.55 L (0.7-1.0) mg/dL Estim Creat Clear Calc 115 ml/min Estimated GFR > 60 (59 - ) Glucose 78 (65-110) mg/dL Lactic Acid (0.7-2.0) mmol/L Calcium 8.7 (8.4-10.2) mg/dL Total Bilirubin 1.3 (0.2-1.3) mg/dL AST 20 (14-36) U/L ALT 22 (6-35) U/L Alkaline Phosphatase 91 (38-126) U/L Troponin I < 0.012 (0.000-0.034) ng/mL NT-Pro-B Natriuret Pep 1620 H (19.9-100) pg/mL Total Protein 7.0 (6.3-8.2) g/dL Albumin 3.5 (3.5-5.1) g/dL TSH Cancelled 1.170 Urine Color (Yellow) Urine Appearance (Clear) Urine pH (5.0-9.0) Ur Specific [place] (1.001-1.035) Urine Protein (Negative) mg/dL Urine Glucose (UA) (Negative) mg/dL Urine Ketones (Negative) mg/dL Ur Blood (Man) (Negative) Urine Nitrate (Negative) Urine Bilirubin (Negative) Urine Urobilinogen (<2.0) mg/dL Add Ur Microanalysis Leukocyte Esterase Rfl (Negative) ERNA/UL Urine RBC (0-2) /hpf Urine WBC (0-3) /hpf Ur Squamous Epith Cells (Few) /hpf Urine Bacteria /hpf Urine Casts Nasal MRSA (PCR) (NOT DETECTE) Influenza A (RT-PCR) (Negative) Influenza B (RT-PCR) (Negative) RSV (RT-PCR) (Negative) SARS-CoV-2 RNA (RT-PCR) (Negative) 08/07/24 08/07/24 08/07/24 Range/Units 16:18 17:02 17:20 WBC (4.5-10.0) K/mm3 RBC (4.2-5.4) M/mm3 Hgb (12.0-15.0) g/dL Hct (37.0-47.0) % MCV (80-100) fl MCH (26-34) pg MCHC (32-36) g/dl RDW (11.5-14.5) % Plt Count (150-375) k/mm3 MPV (7.4-10.4) fl Immature Gran % (Auto) (0-0.5) % Neut % (Auto) (45.5-73.1) % Lymph % (Auto) (18.3-44.2) % Eddy % (Auto) (2.6-8.5) % Eos % (Auto) (0-4.4) % Baso % (Auto) (0.2-1.2) % Lymph # (Auto) (0.9-3.2) K/mm3 Eddy # (Auto) (0.1-0.6) K/mm3 Eos # (Auto) (0-0.3) K/mm3 Baso # (Auto) (0.0-0.1) K/mm3 Abs Immat Gran (auto) (0.00-0.031) K/mm3 Absolute Neuts (auto) (1.3-6.7) K/mm3 Absolute Nucleated RBC (0.0-0.012) K/mm3 Nucleated RBC % (0.0-0.2) % D-Dimer (<0.48) ug/mL Methemoglobin 0.1 (0-1.5) %THb Sodium (137-145) mmol/L Potassium (3.4-5.0) mmol/L Chloride (98-107) mmol/L Carbon Dioxide (22-30) mmol/L Anion Gap (4-12) mmol/L BUN (7-17) mg/dL Creatinine (0.7-1.0) mg/dL Estim Creat Clear Calc ml/min Estimated GFR (59 - ) Glucose (65-110) mg/dL Lactic Acid 1.2 (0.7-2.0) mmol/L Calcium (8.4-10.2) mg/dL Total Bilirubin (0.2-1.3) mg/dL AST (14-36) U/L ALT (6-35) U/L Alkaline Phosphatase (38-126) U/L Troponin I (0.000-0.034) ng/mL NT-Pro-B Natriuret Pep (19.9-100) pg/mL Total Protein (6.3-8.2) g/dL Albumin (3.5-5.1) g/dL TSH Urine Color Dark yellow (Yellow) Urine Appearance Clear (Clear) Urine pH 5.5 (5.0-9.0) Ur Specific [place] 1.020 (1.001-1.035) Urine Protein Negative (Negative) mg/dL Urine Glucose (UA) Negative (Negative) mg/dL Urine Ketones Trace H (Negative) mg/dL Ur Blood (Man) Negative (Negative) Urine Nitrate Positive H (Negative) Urine Bilirubin Negative (Negative) Urine Urobilinogen 1.0 (<2.0) mg/dL Add Ur Microanalysis Reviewed Leukocyte Esterase Rfl Trace H (Negative) ERNA/UL Urine RBC 0-2 (0-2) /hpf Urine WBC 0-5 (0-3) /hpf Ur Squamous Epith Cells Few (Few) /hpf Urine Bacteria 4+ H /hpf Urine Casts 0-2 Nasal MRSA (PCR) (NOT DETECTE) Influenza A (RT-PCR) Negative (Negative) Influenza B (RT-PCR) Negative (Negative) RSV (RT-PCR) Negative (Negative) SARS-CoV-2 RNA (RT-PCR) Negative (Negative) 04/10/25 04/10/25 Range/Units 02:04 05:13 WBC 7.9 (4.5-10.0) K/mm3 RBC 4.97 (4.2-5.4) M/mm3 Hgb 14.3 (12.0-15.0) g/dL Hct 47.0 (37.0-47.0) % MCV 94.6 (80-100) fl MCH 28.8 (26-34) pg MCHC 30.4 L (32-36) g/dl RDW 15.9 H (11.5-14.5) % Plt Count 282 (150-375) k/mm3 MPV 10.8 H (7.4-10.4) fl Immature Gran % (Auto) 0.5 (0-0.5) % Neut % (Auto) 61.8 (45.5-73.1) % Lymph % (Auto) 25.5 (18.3-44.2) % Eddy % (Auto) 8.5 (2.6-8.5) % Eos % (Auto) 2.9 (0-4.4) % Baso % (Auto) 0.8 (0.2-1.2) % Lymph # (Auto) 2.02 (0.9-3.2) K/mm3 Eddy # (Auto) 0.7 H (0.1-0.6) K/mm3 Eos # (Auto) 0.2 (0-0.3) K/mm3 Baso # (Auto) 0.1 (0.0-0.1) K/mm3 Abs Immat Gran (auto) 0.04 H (0.00-0.031) K/mm3 Absolute Neuts (auto) 4.9 (1.3-6.7) K/mm3 Absolute Nucleated RBC 0.000 (0.0-0.012) K/mm3 Nucleated RBC % 0.0 (0.0-0.2) % D-Dimer (<0.48) ug/mL Methemoglobin (0-1.5) %THb Sodium 138 (137-145) mmol/L Potassium 3.6 (3.4-5.0) mmol/L Chloride 105 (98-107) mmol/L Carbon Dioxide 24 (22-30) mmol/L Anion Gap 9 (4-12) mmol/L BUN 9 (7-17) mg/dL Creatinine 0.51 L (0.7-1.0) mg/dL Estim Creat Clear Calc 121 ml/min Estimated GFR > 60 (59 - ) Glucose 100 (65-110) mg/dL Lactic Acid (0.7-2.0) mmol/L Calcium 8.6 (8.4-10.2) mg/dL Total Bilirubin 1.5 H (0.2-1.3) mg/dL AST 22 (14-36) U/L ALT 19 (6-35) U/L Alkaline Phosphatase 91 (38-126) U/L Troponin I (0.000-0.034) ng/mL NT-Pro-B Natriuret Pep (19.9-100) pg/mL Total Protein 6.0 L (6.3-8.2) g/dL Albumin 3.4 L (3.5-5.1) g/dL TSH Urine Color (Yellow) Urine Appearance (Clear) Urine pH (5.0-9.0) Ur Specific [place] (1.001-1.035) Urine Protein (Negative) mg/dL Urine Glucose (UA) (Negative) mg/dL Urine Ketones (Negative) mg/dL Ur Blood (Man) (Negative) Urine Nitrate (Negative) Urine Bilirubin (Negative) Urine Urobilinogen (<2.0) mg/dL Add Ur Microanalysis Leukocyte Esterase Rfl (Negative) ERNA/UL Urine RBC (0-2) /hpf Urine WBC (0-3) /hpf Ur Squamous Epith Cells (Few) /hpf Urine Bacteria /hpf Urine Casts Nasal MRSA (PCR) Detected A* (NOT DETECTE) Influenza A (RT-PCR) (Negative) Influenza B (RT-PCR) (Negative) RSV (RT-PCR) (Negative) SARS-CoV-2 RNA (RT-PCR) (Negative) ABG Data ABG results: 08/07/24 16:18 Puncture Site Right radial ABG pH 7.402 ABG pCO2 36.8 ABG pO2 72.9 L ABG PO2/FiO2 Ratio 2.03 ABG HCO3 22.4 ABG O2 Saturation 94.8 L ABG O2 Content 20.5 ABG Base Excess -1.8 A-a Gradient 141.1 Oxyhemoglobin 93.9 Carboxyhemoglobin 0.8 Reduced Hemoglobin 5.2 H Total Hemoglobin 15.5 O2 Delivery Device Nasal cannula O2 Liters/Min 4.0 FiO2 36 Imaging Data Attestation: I personally reviewed and interpreted this imaging study as follows: My impression: Cardiomegaly on my independent interpretation of chest x-ray Radiologist's impression: Impressions Chest X-Ray 08/07/24 16:04 IMPRESSION: Cardiomegaly. No acute cardiopulmonary pathology seen. Head CT 08/07/24 18:11 IMPRESSION: No acute intracranial findings. Chest CTA 08/07/24 18:18 IMPRESSION: 1. No pulmonary embolism. 2. Cardiomegaly. 3. Patchy areas of groundglass appearance suggestive of pneumonia versus edema. Clinical correlation and follow-up advised. ECG Data EKG #1: Attestation: I personally reviewed and interpreted this ECG as follows: ECG completion date: 08/07/24 ECG completion time: 15:25 Interpretation: Normal sinus rhythm at a rate of 97 beats per minute. There is occasionally a premature complex. [place] interval 158. QRS 94. QT/QTC 370/424. Good R-wave progression across the precordial leads. QRS complexes are small in lateral precordial leads I suspect due to body habitus. T-wave inversion in lead 3 but otherwise appears normal in contiguous inferior leads 2 and AVF. No other T-wave inversions. Discharge Plan Discharge Clinical Impression: Cardiomegaly, Elevated brain natriuretic peptide (BNP) level, Hypoxia, Leukocytosis, UTI (urinary tract infection), Pneumonia Patient Disposition: Still a Patient Condition: Stable
[2024-08-07 17:00] LABS: Troponin I < 0.012 ng/mL (0.000-0.034)
--- OUTSIDE RECORDS SUMMARY | 2024-08-07 17:04 | XMS_ITS | Encounter Summary ---
Author Organization [facility] Facility Care Team Providers Care Airline Counter Agent Name Role Phone Cecilio Villaseñor MD Primary Care Provider [phone] Todd Cabrales MD Primary Care Provider [phone] Elliott Valente MD Primary Care Provider [phone] Sammi Chanel [facility] Unavailable [phone] Amy Sanchez CDE Unavailable [phone] Cristiane Kam RN Unavailable [phone] Cristiane Kam RN Unavailable [phone] Miri Rincon [facility] Unavailable [phone] Jany Mariee RN Unavailable [phone] Sabiha Jimenez [facility] Unavailable [phone] Encounter Details Date Type Department Care Team (Latest Contact Info) Description 11/16/2015 Orders Only [facility] CLINCON[facility] ProviderKanwal MD [address] [place] [id number] Social History Tobacco Use Types Packs/Day Years Used Date Smoking Tobacco: Never Assessed Comments Unknown Sex and Gender Information Value Date Recorded Sex Assigned at Not on file 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 Gender Identity Not on file Sexual Orientation [...] COVID: Suspected 04/23/2020 04/23/2020 05/07/2020 3:06 AM HOSPITAL ADMITTING CLERK documented as of this encounter Care Teams Airline Counter Agent Relationship Specialty Start Date End Date Cecilio Villaseñor MD [address] [facility] [place] [address] PCP - General 01/12/11 01/07/19 Todd Cabrales MD [facility] [place] [address] PCP - General Family Medicine 01/08/19 03/29/22 Elliott Valente MD [address] [facility] [place] [address] PCP - General Family Medicine 03/30/22 Sammi Chanel, Tasha [address] [place] [address] [address] [place] [address] Pharmacist Pharmacy 01/18/23 02/16/23 Amy Sanchez CDE [address] [place] [address] [address] [place] [address] Science Interpreter 07/06/23 07/20/23 Cristiane Kam, RN [address] [place] [address] [address] [place] [address] Hand Cloth Cutter 07/06/23 07/13/23 Cristiane Kam, RN [address] [place] [address] [address] [place] [address] Hand Cloth Cutter 07/14/23 08/02/23 Miri Rincon, NON LINEAR EDITOR [address] [place] [address] [place] [address] Youth Care Worker 01/24/24 03/25/24 Jany Mariee, KARIME [address] [place] [address] [address] [place] [address] Hand Cloth Cutter 02/08/24 Sabiha Jimenez, [address] [place] [address] Pharmacist Pharmacy 02/20/24 02/20/24 documented as of this encounter
--- OUTSIDE RECORDS SUMMARY | 2024-08-07 17:04 | XMS_ITS | Encounter Summary ---
Author Organization [facility] Facility Care Team Providers Care Career Technology Teacher Name Role Phone Cecilio Villaseñor MD Primary Care Provider Todd Cabrales MD Primary Care Provider [phone] Elliott Valente MD Primary Care Provider [phone] Sammi Chanel [facility] Unavailable [phone] Amy Sanchez CDE Unavailable [phone] Cristiane Kam RN Unavailable [phone] Cristiane Kam RN Unavailable [phone] Miri Rincon [facility] Unavailable [phone] Jany Mariee RN Unavailable [phone] Sabiha Jimenez [facility] Unavailable [phone] Encounter Details Date Type Department Care Team (Latest Contact Info) Description 11/10/2016 Orders Only [facility] CLINCONV ProviderKanwal MD [address] [place] [id number] Social History Tobacco Use Types Packs/Day Years Used Date Smoking Tobacco: Never Assessed Comments Unknown Sex and Gender Information Value Date Recorded Sex Assigned at Not on file 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 Gender Identity Not on file Sexual Orientation [...] COVID: Suspected 04/23/2020 04/23/2020 05/07/2020 3:06 AM DRYING MACHINE BACK TENDER documented as of this encounter Care Teams Career Technology Teacher Relationship Specialty Start Date End Date Cecilio Villaseñor MD [address] [facility] [place] [address] PCP - General 01/12/11 01/07/19 Todd Cabrales MD [facility] [place] [address] PCP - General Family Medicine 01/08/19 03/29/22 Elliott Valente MD [address] [facility] [place] [address] PCP - General Family Medicine 03/30/22 Sammi Chanel, Tasha [address] [place] [address] [address] [place] [address] Pharmacist Pharmacy 01/18/23 02/16/23 Amy Sanchez CDE [address] [place] [address] [address] [place] [address] Motor Express Clerk 07/06/23 07/20/23 Cristiane Kam, RN [address] [place] [address] [address] [place] [address] Clinical Advisor 07/06/23 07/13/23 Cristiane Kam, RN [address] [place] [address] [address] [place] [address] Clinical Advisor 07/14/23 08/02/23 Miri Rincon, VAMP STRAP IRONER [address] [place] [address] [place] [address] Fourdrinier Operator 01/24/24 03/25/24 Jany Mariee, KARIME [address] [place] [address] [address] [place] [address] Clinical Advisor 02/08/24 Sabiha Jimenez, [address] [place] [address] Pharmacist Pharmacy 02/20/24 02/20/24 documented as of this encounter
--- OUTSIDE RECORDS SUMMARY | 2024-08-07 17:04 | XMS_ITS | Referral Summary ---
Author Organization [facility] Address [address] [place] [address] Care Team Providers Care Human Service Technician Name Role Phone Elliott Valente MD Primary Care Provider [phone] Jany Mariee RN Unavailable [phone] Encounters Date Type Department Care Team Description 07/26/2024 10:11 AM CDT - 07/26/2024 7:47 PM CDT Emergency [facility] Emergency Department [address] [place] [address] Avtar Ribeiro MD Osborn, Tiffany M., MD Fall, subsequent encounter (Primary Dx); Failed total right knee replacement, initial encounter Discharge Disposition: Discharge to home or self care 06/24/2024 Telephone [facility] Pul[facility] [address] [address] Chase Levin MD Orders Only 06/24/2024 11:30 AM HOUSING MANAGEMENT OFFICER Office Visit [address] [address] Lupe Walters NP SUKUMAR (obstructive sleep apnea) (Primary Dx); Moderate persistent asthma without complication 05/17/2024 Telephone [facility] [place] [address] [place] [phone] Elliott Valente MD Medical Question/Miscellaneou s from [...] daily 24 each 3 025 2024 Discontinued(R eorohan) Active Problems Problem Noted Date Diagnosed Date [...] [place]. Assessment & Plan (06/24/2024 11:55 AM HOUSING MANAGEMENT OFFICER): The patient continue with Wixela one puff twice a day. Patient will continue with Singulair. Seasonal allergic rhinitis due to pollen 024 Overview (09/22/2023): conditoin chroinc adn at goal continue berny zyrtec and the singular Failed total knee arthroplasty 07/12/2022 Overview (07/12/2022): Added automatically from request for surgery [id number] ENRIQUE (generalized anxiety disorder) 12/31/2020 Assessment & [...] 08/24/2015 Assessment & Plan (06/24/2024 11:55 AM HOUSING MANAGEMENT OFFICER): I have ordered the patient new [...] months Assessment & Plan (06/01/2022 2:19 PM HOUSING MANAGEMENT OFFICER): The patient continues to benefit from [...] needed. Assessment & Plan (06/01/2022 2:19 PM HOUSING MANAGEMENT OFFICER): The patient has a history of [...] the plan were completed as outlined by [facility]. A copy of the prevention plan was [...] benefit of other non-opioid pain therapies. Immunization: [id number]: Highly Recommended [id number]: Highly Recommended PCV20: Highly Recommended Influenza: Highly [...] Patient decision),04/28/2023(Deferred: Patient decision),03/01/2022(Deferred: Other),12/30/2021(Deferred: Patient decision),03/06/2021 [employer] ([employer]) SARS-CoV-2 Vaccination 07/28/2020 PPD TEST 12/08/2023,11/29/2023 Tdap 01/10/2019 Tetanus Toxoid, Unspecified 01/10/2019 ZOSTER Recombinant 11/08/2018,06/05/2018 Zoster, unspecified 11/08/2018,06/05/2018 Social History Tobacco Use Types Packs/Day Years Used Date Smoking Tobacco: Former Cigarettes 0.1 2 0 05/01/2000 - 05/01/2001 Smokeless Tobacco: Never Tobacco Cessation:Counseling Given: Not Answered Alcohol Use Standard Drinks/Week Comments Not Currently 0 (1 standard drink = 0.6 oz pur e alcohol) [facility] Utilities Answer Date Recorded In the past 12 months has e [a]list games, gas, oil, or water [employer] threatened to shut off services in your [...] often do you attend chur ch or latter-day services? Never 02/01/2024 Do you belong to any clubs o r organizations such as presybeterian groups, unions, fraternal or athletic groups, or [...] staff should administer the PHQ-9) 6 09/11/2023 [facility] - Occupational Stress Questionnaire Answer Date Recorded [...] any time in the past 12 m [facility], were you homeless or living in a skilled nursing (including now)? No 02/01/2024 Personal Safety Answer Date Recorded Have you ever been in or are you currently in a harmful physical or emotional relationship or is someone making you feel afraid or unsafe? Denies 07/26/2024 Education Answer Date Recorded What is the highest level of school you have completed or the highest degree you have received? High school graduate 06/21/2019 Comments No Sex and Gender Information Value Date Recorded Sex Assigned at Not on file Legal Sex Female 8:39 PM HOUSING MANAGEMENT OFFICER Gender Identity Not on file Sexual Orientation Not on file Occupation Industry Job Start Date Job End Date Disabled Not on file Not on file Not on file Last Filed Vital Signs Vital Sign Reading Time Taken Comments Blood Pressure 148/94 07/26/2024 4:00 PM CDT Pulse 92 07/26/2024 4:00 PM CDT Temperature 36.5 C (97.7 F) 07/26/2024 10:24 AM CDT Respiratory Rate 15 07/26/2024 4:00 PM CDT Oxygen Saturation 93% 07/26/2024 4:00 PM CDT Inhaled Oxygen Concentration - - Weight 129.3 kg (285 lb) 07/26/2024 10:23 AM CDT Height 162.6 cm (5' 4) 07/26/2024 10:23 AM CDT Body Mass Index 48.92 07/26/2024 10:23 AM CDT Plan of Treatment Not on file Procedures Procedure Name Priority Date/Time Associated Diagnosis Comments XR FEMUR RIGHT 2 OR MORE VIEWS ED 07/26/2024 2:25 PM CDT XR TIBIA FIBULA RIGHT2 VIEWS ED 07/26/2024 2:25 PM CDT PROTIME-INR STAT 07/26/2024 12:20 PM CDT APTT STAT 07/26/2024 12:20 PM CDT DIFFERENTIAL AUTO Routine 07/26/2024 11: 30 AM CDT CBC WITH AUTO DIFFERENTIAL Routine 07/26/2024 11:30 AM CDT B CHECK SAMPLE STAT 07/26/2024 10:54 AM CDT URINALYSIS AND REFLEX TO MICROSCOPIC STAT 07/26/2024 10:54 AM CDT EGFR STAT 07/26/2024 10:37 AM CDT COMPREHENSIVE METABOLIC PANEL STAT 07/26/2024 10:37 AM CDT TYPE AND SCREEN STAT 07/26/2024 10:37 AM CDT POCT GLUCOSE DEVICE Routine 07/26/2024 1 0:30 AM CDT HEMOGLOBIN A1C Routine 11/18/2023 2:48 AM CDT LIPID PANEL Routine 11/18/2023 2:48 AM CDT ALBUMIN CREATININE RATIO, URINE Routine 09/21/2023 STOOL DNA COLOGUARD Routine 08/09/2022 12:14 PM CDT Screening for colon cancer DIABETIC EYE EXAM Routine 01/22/2021 HEPATITIS C ANTIBODY Routine 06/21/2019 10:05 AM HOUSING MANAGEMENT OFFICER Medicare annual wellness visit, subsequent SCREENING MAMMOGRAM BILATERAL W MARTÍNEZ Routine 05/24/2018 4:18 PM HOUSING MANAGEMENT OFFICER PAP SMEAR Routine 09/09/2014 COLONOSCOPY Routine 05/01/2010 from Last 3 Months or Most Recently Relevant to Health Maintenance Results * XR Femur Right 2 or More Views (07/26/2024 2:25 PM CDT) Anatomical Region Laterality Modality Lower Extremities, Thigh, Femur Right Computed Radiography 07/26/2024 2:51 PM CDT Impressions 07/26/2024 2:51 PM CDT Unchanged 2 component right knee arthroplasty in near-anatomic alignment with unchanged mild lucency surrounding the tibial component. Dictated by: Shahab Lovell M.D. The radiology attending physician has personally reviewed this study, and had reviewed and/or edited this written report and agrees with it. Electronically signed by: Ilene Hernandez M.D. Narrative 07/26/2024 2:51 PM CDT EXAMINATION: 1. XR FEMUR RIGHT 2 OR MORE VIEWS 2. XR TIBIA FIBULA RIGHT2 VIEWS HISTORY: 68-year-old with right leg pain FINDINGS: XR FEMUR RIGHT 2 OR MORE VIEWS 4 radiographs of the right femur are submitted for interpretation. The alignment is anatomic. There is no acute fracture. There is mild right hip joint osteoarthritis. XR TIBIA FIBULA RIGHT2 VIEWS 5 radiographs of the right tibia and fibula are submitted for interpretation with comparison made to radiographs of 05/17/2022. There is a 2 component right knee arthroplasty in near-anatomic alignment. There is mild lucency surrounding the tibial component, not significantly changed from the prior exam, but remains suggestive of loosening. No acute fracture. Small knee joint effusion. Mild anterior soft tissue swelling and swelling about the ankle. Procedure Note Ilene Hernandez MD - 07/26/2024 EXAMINATION: 1. XR FEMUR RIGHT 2 OR MORE VIEWS 2. XR TIBIA FIBULA RIGHT2 VIEWS HISTORY: 68-year-old with right leg pain FINDINGS: XR FEMUR RIGHT 2 OR MORE VIEWS 4 radiographs of the right femur are submitted for interpretation. The alignment is anatomic. There is no acute fracture. There is mild right hip joint osteoarthritis. XR TIBIA FIBULA RIGHT2 VIEWS 5 radiographs of the right tibia and fibula are submitted for interpretation with comparison made to radiographs of 05/17/2022. There is a 2 component right knee arthroplasty in near-anatomic alignment. There is mild lucency surrounding the tibial component, not significantly changed from the prior exam, but remains suggestive of loosening. No acute fracture. Small knee joint effusion. Mild anterior soft tissue swelling and swelling about the ankle. IMPRESSION: Unchanged 2 component right knee arthroplasty in near-anatomic alignment with unchanged mild lucency surrounding the tibial component. Dictated by: Shahab Lovell M.D. The radiology attending physician has personally reviewed this study, and had reviewed and/or edited this written report and agrees with it. Electronically signed by: Ilene Hernandez M.D. Rylan Nicole MD IMG XR PROCEDURES Final Result * XR Tibia Fibula Right 2 Views (07/26/2024 2:25 PM CDT) Anatomical Region Laterality Modality Lower Extremities, Lower Leg Right Com puted Radiography 07/26/2024 2:51 PM CDT Impressions 07/26/2024 2:51 PM CDT Unchanged 2 component right knee arthroplasty in near-anatomic alignment with unchanged mild lucency surrounding the tibial component. Dictated by: Shahab Lovell M.D. The radiology attending physician has personally reviewed this study, and had reviewed and/or edited this written report and agrees with it. Electronically signed by: Ilene Hernandez M.D. Narrative 07/26/2024 2:51 PM CDT EXAMINATION: 1. XR FEMUR RIGHT 2 OR MORE VIEWS 2. XR TIBIA FIBULA RIGHT2 VIEWS HISTORY: 68-year-old with right leg pain FINDINGS: XR FEMUR RIGHT 2 OR MORE VIEWS 4 radiographs of the right femur are submitted for interpretation. The alignment is anatomic. There is no acute fracture. There is mild right hip joint osteoarthritis. XR TIBIA FIBULA RIGHT2 VIEWS 5 radiographs of the right tibia and fibula are submitted for interpretation with comparison made to radiographs of 05/17/2022. There is a 2 component right knee arthroplasty in near-anatomic alignment. There is mild lucency surrounding the tibial component, not significantly changed from the prior exam, but remains suggestive of loosening. No acute fracture. Small knee joint effusion. Mild anterior soft tissue swelling and swelling about the ankle. Procedure Note Ilene Hernandez MD - 07/26/2024 EXAMINATION: 1. XR FEMUR RIGHT 2 OR MORE VIEWS 2. XR TIBIA FIBULA RIGHT2 VIEWS HISTORY: 68-year-old with right leg pain FINDINGS: XR FEMUR RIGHT 2 OR MORE VIEWS 4 radiographs of the right femur are submitted for interpretation. The alignment is anatomic. There is no acute fracture. There is mild right hip joint osteoarthritis. XR TIBIA FIBULA RIGHT2 VIEWS 5 radiographs of the right tibia and fibula are submitted for interpretation with comparison made to radiographs of 05/17/2022. There is a 2 component right knee arthroplasty in near-anatomic alignment. There is mild lucency surrounding the tibial component, not significantly changed from the prior exam, but remains suggestive of loosening. No acute fracture. Small knee joint effusion. Mild anterior soft tissue swelling and swelling about the ankle. IMPRESSION: Unchanged 2 component right knee arthroplasty in near-anatomic alignment with unchanged mild lucency surrounding the tibial component. Dictated by: Shahab Lovell M.D. The radiology attending physician has personally reviewed this study, and had reviewed and/or edited this written report and agrees with it. Electronically signed by: Ilene Hernandez M.D. us Rylan Nicole MD IMG XR PROCEDURES Final Result * (ABNORMAL) aPTT (07/26/2024 12:20 PM CDT) aPTT 20(L) 28 - 38 sec Comment: Interpretive Data Heparin therapeutic range: 66.0 - 100.0 seconds. Range based on correlation with therapeutic heparin activity range of 0.3 - 0.7 Units/mL. Current interpretive data was last revised on 2023. Blood 07/26/2024 12:2 0 PM CDT 07/26/2024 12:30 PM CDT us Avtar Ribeiro MD LAB BLOOD ORDERABLES Fin al Result [facility] Department [place] [address] 011 * Protime-INR (07/26/2024 12:20 PM CDT) Pathologist [facility] PT 11.7 9.7 - 13.0 sec INR 1.08 0.90 - 1.20 [facility] Comment: Interpretive data Oral anticoagulant therapeutic ranges: Venous thromboembolism prophylaxis or treatment: 2.0-3.0 CARDIOLOGY Standard range: 2.0-3.0 High-intensity range: 2.5-3.5 Refer to indication-specific guidelines for appropriate target ranges for prosthetic heart valve replacement. Current interpretive data was last revised on 2019. Blood 07/26/2024 12:2 0 PM CDT 07/26/2024 12:30 PM CDT us Avtar Ribeiro MD LAB BLOOD ORDERABLES Fin al Result [facility] Department [place] [address] * Differential, auto (07/26/2024 11:30 AM CDT) Pathologist [facility] Neutrophil abs 4.1 1.5 - 6.5 K/cumm Imm gran abs 0.0 0.0 - 0.1 K/cumm [facility] Lymphocyte abs 1.6 0.8 - 3.3 K/cumm [facility] Monocyte abs 0.4 0.2 - 0.8 K/cumm [facility] Eosinophil abs 0.1 0.0 - 0.5 K/cumm [facility] Basophil abs 0.0 0.0 - 0.1 K/cumm [facility] Neutrophil pct 64.6 % [facility] Comment: Interpretive Data Percent cell count reference ranges are not reported, since discordance with absolute values may lead to misinterpretation of CBC data. Current Interpretive Data was last revised on 2017. Imm gran pct 0.2 % [facility] Comment: Interpretive Data Percent cell count reference ranges are not reported, since discordance with absolute values may lead to misinterpretation of CBC data. Current Interpretive Data was last revised on 2017. Lymphocyte pct 25.5 % [facility] Comment: Interpretive Data Percent cell count reference ranges are not reported, since discordance with absolute values may lead to misinterpretation of CBC data. Current Interpretive Data was last revised on 2017. Monocyte pct 7.0 % [facility] Comment: Interpretive Data Percent cell count reference ranges are not reported, since discordance with absolute values may lead to misinterpretation of CBC data. Current Interpretive Data was last revised on 2017. Eosinophil pct 2.1 % [facility] Comment: Interpretive Data Percent cell count reference ranges are not reported, since discordance with absolute values may lead to misinterpretation of CBC data. Current Interpretive Data was last revised on 2017. Basophil pct 0.6 % [facility] Comment: Interpretive Data Percent cell count reference ranges are not reported, since discordance with absolute values may lead to misinterpretation of CBC data. Current Interpretive Data was last revised on 2017. Blood 07/26/2024 11:3 0 AM CDT 07/26/2024 11:41 AM CDT us Avtar Ribeiro MD LAB BLOOD ORDERABLES Fin al Result [facility] Department [place] [address] * (ABNORMAL) CBC with auto differential (07/26/2024 11:30 AM CDT) WBC 6.3 3.8 - 9.9 K/cumm Hgb 13.7 11.9 - 15.5 g/dL [facility] Hct 41.5 35.6 - 45.5 % [facility] Plt 271 150 - 400 K/cumm [facility] MPV 10.9 9.1 - 12.3 fL [facility] RBC 4.80 3.90 - 5.20 M/cumm [facility] MCV 86.5 81.3 - 96.4 fL [facility] MCH 28.5 27.1 - 33.3 pg [facility] MCHC 33.0 32.3 - 35.7 g/dL [facility] RDW CV 16.5(H) 11.1 - 14.9 % [facility] RDW SD 52.0(H) 35.7 - 48.1 fL [facility] NRBC abs 0.00 0.00 - 0.01 K/cumm [facility] Blood 07/26/2024 11:3 0 AM CDT 07/26/2024 11:41 AM CDT Avtar Ribeiro MD LAB BLOOD ORDERABLES Fin al Result Performing Organization Address [facility] Co de Phone Number [facility] [employer] [place] [place] [address] * Check Sample (07/26/2024 10:54 AM CDT) ABO Rh A Positive [facility] OTHER 07/26/2024 10:5 4 AM CDT 07/26/2024 11:05 AM CDT Avtar Ribeiro MD LAB BLOOD ORDERABLES Fin al Result Performing Organization Address [facility] de Phone Number [facility] [place] [address] [facility] * (ABNORMAL) Urinalysis reflex to microscopic (07/26/2024 10:54 AM CDT) Color, ur Yellow Yellow Clarity, ur Clear Clear [facility] Specific gravity, ur 1.034(H) 1.003 - 1.030 [facility] pH, urine 6.0 [facility] Comment: Interpretive Data U rine pH is affected by diet, medications, systemic acid-base disturbances, and renal tubular function. pH may affect urinary stone formation. For example, urine pH below 6.0 may help reduce the tendency for calcium phosphate stones and pH greater than 6.0 may reduce the tendency for uric acid stone formation. Source: [facility] [employer] Current Interpretive Data was last revised on 2017 Protein, ur ql Trace Negative [facility] Glucose, ur ql Negative Negative [facility] Ketones, ur 1+(A) Negative [facility] Bilirubin, ur Negative Negative [facility] Blood, ur Negative Negative [facility] Urobilinogen, ur 2.0(A) <2.0 mg/dL [facility] Nitrite, ur Negative Negative [facility] Leukocyte esterase, ur Negative Negative [facility] UA reflex comment Reflex conditions for microscopic UA not met. [facility] Urine 07/26/2024 10:5 4 AM CDT 07/26/2024 11:00 AM CDT us Rylan Nicole MD LAB URINE ORDERABLES Final Res ult [facility] Department [place] [address] * eGFR (07/26/2024 10:37 AM CDT) eGFR >90 >=60 mL/min/1. 73 [...] interpretive data was last reviewed 2021. Blood 07/26/2024 10:3 7 AM CDT 07/26/2024 10:50 AM CDT Rylan Nicole MD LAB BLOOD ORDERABLES Final Res ult Performing Organization Address City/[facility] Co de Phone Number [facility] Department [place] [address] * Type and screen (07/26/2024 10:37 AM CDT) Kimberly, indirect Negative ABO Rh A Positive [facility] Blood 07/26/2024 10:3 7 AM CDT 07/26/2024 10:48 AM CDT Narrative [facility] - 07/26/2024 11:43 AM CDT Has the patient had Daratumumab or Isatuximab in the past 6 months?->Unknown Rylan Nicole MD LAB BLOOD BANK TEST ORDERABLES Final Result Performing Organization Address [facility] Co de Phone Number [facility] Department [place] [address] * (ABNORMAL) Comprehensive metabolic panel (07/26/2024 10:37 AM CDT) Pathologist [facility] Sodium 142 135 - 145 mmol/L Potassium, pl 4.4 3.3 - 4.9 mmol/L [facility] Comment:Hemolyzed; Potassium value may be falsely elevated by as much as 0.3-0.5 mmol/L. Suggest redraw and reanalysis. Chloride 108 97 - 110 mmol/L [facility] CO2 24 22 - 32 mmol/L [facility] Anion gap 10 2 - 15 mmol/L [facility] BUN 11 6 - 25 mg/dL [facility] Creatinine 0.49(L) 0.60 - 1.10 mg/dL [facility] Glucose 144 70 - 199 mg/dL [facility] Comment: Interpretive Data Fasting glucose >/= 126 mg/dl is diagnostic for diabetes. Fasting is defined as no caloric intake for at least 8 hours. Fasting glucose between 100 mg/dl to 125 mg/dl is diagnostic of prediabetes. In a patient with classic symptoms of hyperglycemia or hyperglycemic crisis, a random glucose >/= 200 mg/dl is diagnostic for diabetes. In the absence of unequivocal hyperglycemia, results should be confirmed by repeat testing. The classification and Diagnosis of Diabetes Diabetes Care 2021; 46: S19-S40. Current interpretive data was last revised 2022. Calcium 8.5 8.5 - 10.3 mg/dL [facility] Bilirubin, total 1.2 0.1 - 1.2 mg/dL [facility] Protein, pl 6.2(L) 6.5 - 8.5 g/dL [facility] Albumin 3.8 3.5 - 5.0 g/dL [facility] Alk phos 106 40 - 130 Units/L [facility] ALT 31 7 - 45 Units/L [facility] AST 40 10 - 45 Units/L [facility] Comment:Hemolyzed; result ma y be falsely elevated Blood 07/26/2024 10:3 7 AM CDT 07/26/2024 10:50 AM CDT Rylan Nicole MD LAB BLOOD ORDERABLES Final Res ult Performing Organization Address City/[facility]/ZIP Co de Phone Number [facility] Department [place] [address] * POCT glucose (07/26/2024 10:30 AM CDT) [facility] Glucose, POC 144 70 - 199 mg/dL Blood 07/26/2024 10:3 0 AM CDT 07/26/2024 10:30 AM CDT Duran Cavazos MD LAB POCT ORDERABLES - DEVICE F inal Result Performing Organization Address City/[facility]/ZIP Co de Phone Number [facility] Department [place] [address] * (ABNORMAL) Hemoglobin A1c (11/18/2023 2:48 AM CDT) Pathologist [facility] Hgb A1C 6.5(H) 4.0 - 5.6 % Estimated Average Glucose 140 mg/dL [facility] Comment: The ADA recommends reporting an estimated Average Glucose (eAG) with all Hemoglobin A1c results using the equation derived from a study of 507 normal and diabetic adults. Minority populations were underrepresented and children were not included. (Diabetes Care 31:9232-0121, 2008). The eAG is not equivalent to a fasting glucose. Blood 11/18/2023 2:48 AM CDT 11/18/2023 3:03 AM CDT us Jay Peña MD LAB BLOOD ORDERABLES Final Result [facility] [address] Department [place] [address] * Lipid panel (11/18/2023 2:48 AM CDT) [...] revised on 2017. Chol/HDL ratio 2 [facility] Blood 11/18/2023 2:48 AM CDT 11/18/2023 3:03 AM CDT us Jay Peña MD LAB BLOOD ORDERABLES Final Result [facility] [address] Department [place] [address] * Albumin Creatinine Ratio, Urine (09/21/2023) SCRIBED Creatinine, Urine 32 20 - 275 EXTERNAL LAB SCRIBED Microalbumin 1.0 0 - 29 EXTERNAL LAB SCRIBED Micro ACR, Urine 0 EXTERNAL LAB SCRIBED Microalb/Creat Ratio 31 EXTERNAL LAB Urine us Historical Provider LAB URINE ORDERABLES Leydi elen Result EXTERNAL LAB * Stool DNA - Cologuard (08/09/2022 12:14 PM CDT) Stool DNA - Cologuard Negative Negative [employer] (CLIA #:[id number]) Comment: NEGATIVE TEST RESULT. A negative Cologuard [...] screened with both Cologuard and colonoscopy. (Michael Thomas al, N Engl J Med 2014;370(14):0741-7520) The normal value (reference range) for this assay is negative. COLOGUARD RE-SCREENING RECOMMENDATION: Periodic colorectal cancer screening is an important part of preventive healthcare for asymptomatic individuals at average risk for colorectal cancer. Following a negative Cologuard result, the [place] [employer] and U.S. Multi-Society Task Force screening guidelines recommend a Cologuard re-screening interval of 3 years. References: [place] [employer] Guideline for Colorectal Cancer Screening: https://www.cancer.org/cancer/gxnwg-vpipxz-xiiiud/aenknqfos-nkrmooaxf-aupmqjm/ac s-rec ommendations.html.; Donte ZEPEDA, Bharat CR, Candace IGLESIAS, Colorectal Cancer Screening: Recommendations for Physicians and Patients from the U.S. Multi-Society Task Force on Colorectal Cancer Screening , Am J Gastroenterology 2017; 112:5900-6687. TEST DESCRIPTION: Composite algorithmic analysis of stool [...] screened with both Cologuard and colonoscopy. (Michael Agrawal. et al, N Engl J Med 2014;370(14):3209-4222.) Cologuard may produce a false negative or false positive result (no colorectal cancer or precancerous polyp present at colonoscopy follow up). A negative Cologuard test result does not guarantee the absence of CRC or advanced adenoma (pre-cancer). The current Cologuard screening interval is every 3 years. ([place] [employer] and U.S. Multi-Society Task Force). Cologuard performance data in a 10,000 patient pivotal study using colonoscopy as the reference method can be accessed at the following location: www.[employer].com/results. Additional description of the Cologuard test process, warnings and precautions can be found at [email or web address]. Stool 08/09/2022 12:1 4 PM CDT 08/10/2022 7:48 PM CDT us Elliott Valente MD LAB BODY FLUIDS AND STOOLS ORDER ISABEL Final Result Performing Organization Address [facility] Co de Phone Number [facility] (CLIA #:[id number]) [address] [address] * Diabetic Eye Exam (01/22/2021) Historical Provider HEALTH MAINTENANCE Final Result * Hepatitis C antibody (06/21/2019 10:05 AM HOUSING MANAGEMENT OFFICER) Hep C Ab NONREACT NONREACTIVE [facility] Comment: Siemens CentaurXP using PK (chemiluminescent immunoassay) [...] method. Blood specimen (specimen) 06/21/2019 10:05 AM HOUSING MANAGEMENT OFFICER 06/21/2019 12:21 PM HOUSING MANAGEMENT OFFICER Narrative Resulting Agency Comment CLI Todd Cabrales MD LAB MICROBIOLOGY - [facility] Final Result Performing Organization Address [facility] Co de Phone Number [address] [phone] * Screening Mammogram Bilateral W Martínez (05/24/2018 4:18 PM HOUSING MANAGEMENT OFFICER) Anatomical Region Laterality Modality Breast Bilateral Mammography 05/24/2018 4:18 PM HOUSING MANAGEMENT OFFICER Impressions 05/25/2018 8:18 AM HOUSING MANAGEMENT OFFICER BI-RAD 1 NEGATIVE There is no mammographic evidence of malignancy. A 1 year screening mammogram is recommended. The patient has been or will be contacted. The patient will be entered into a reminder system with a target due date of 1 year for her next screening exam. Electronically signed by: Dr. Avtar meza/anitra:05/25/2018 08:18:04 Dog Track Kennel Manager: Elisabeth BARTON)(M), [facility] letter sent: Normal Exam Reading location: [facility] BI-RADS: 1 Negative [EOD] Narrative 05/25/2018 8:18 AM HOUSING MANAGEMENT OFFICER - MG BILATERAL DIGITAL SCREENING MAMMOGRAM [...] screening exam. Electronically signed by: Dr. Avtar meza/anitra:05/25/2018 08:18:04 Dog Track Kennel Manager: Elisabeth BARTON)(M), [facility] letter sent: Normal Exam Reading location: [facility] BI-RADS: 1 Negative [EOD] Cecilio Villaseñor MD IMG MAMMO PROCEDURES Final Result * PAP SMEAR (09/09/2014) Pap smear Normal Historical Provider HEALTH MAINTENANCE Final Result * COLONOSCOPY (05/01/2010) Colonoscopy Unknown Historical Provider HEALTH MAINTENANCE Final Result from Last 3 Months or Most Recently Relevant to Health Maintenance Insurance MEDICARE [facility] MEDICARE ID[employer] Advance Directives For more information, please contact: [phone] Documents on File Type Date Recorded Patient Autism Teacher Expl anation ADVANCE DIRECTIVE 07/30/2024 11:20 PM POLST * Full Code (Latest Code Status on File) Date Activated Date Inactivated Comments 01/31/2024 8:30 PM 02/07/2024 4:27 PM * Full Code Date Activated Date Inactivated Comments 11/17/2023 8:37 PM 11/23/2023 8:49 PM Care Teams Human Service Technician Relationship Specialty Start Date End Date Elliott Valente MD PCP - General Family Medicine 03/30/22 Jany Mariee, KARIME [address] [place] [address] [address] [place] [address] Weave Defect Charting Clerk 02/08/24
--- OUTSIDE RECORDS SUMMARY | 2024-08-07 17:04 | XMS_ITS | Encounter Summary ---
Author Organization [facility]/Health system Facility Care Team Providers Care Materials Research Engineer Name Role Phone Cecilio Villaseñor MD Primary Care Provider Todd Cabrales MD Primary Care Provider [phone] Elliott Valente MD Primary Care Provider [phone] Sammi Chanel [facility] Unavailable [phone] Amy Sanchez CDE Unavailable [phone] Cristiane Kam RN Unavailable [phone] Cristiane Kam RN Unavailable [phone] Miri Rincon [facility] Unavailable [phone] Jany Mariee RN Unavailable [phone] Sabiha Jimenez [facility] Unavailable [phone] Encounter Details Date Type Department Care Team (Latest Contact Info) Description 05/19/2017 Orders Only [facility] CLINCONV ProviderKanwal MD [address] [place] [address] Social History Tobacco Use Types Packs/Day Years Used Date Smoking Tobacco: Never Assessed Comments Unknown Sex and Gender Information Value Date Recorded Sex Assigned at Not on file Legal Sex Female 8:39 PM PULLMAN CAR CLERK Gender Identity Not on file Sexual Orientation Not on file documented as of this encounter Plan of Treatment Not on file documented as of this encounter Procedures Procedure Name Priority Date/Time Associated Diagnosis Comments SCAN - LABS 05/19/2017 12:00 AM PULLMAN CAR CLERK documented in this encounter Results * SCAN - LABS (05/19/2017 12:00 AM PULLMAN CAR CLERK) Narrative 05/19/2017 12:00 AM PULLMAN CAR CLERK Ordered by an unspecified provider. us Historical Provider Final Res ult documented in this encounter Visit Diagnoses Not on filedocumented in this encounter Additional Health Concerns Infection Onset Date Last Indicated Resolved Time COVID: Suspected 04/23/2020 04/23/2020 05/07/2020 3:06 AM PULLMAN CAR CLERK documented as of this encounter Care Teams Materials Research Engineer Relationship Specialty Start Date End Date Cecilio Villaseñor MD [address] [facility] [address] [place] [address] PCP - General 01/12/11 01/07/19 Todd Cabrales MD [facility] [address] [place] [address] PCP - General Family Medicine 01/08/19 03/29/22 Elliott Valente MD [facility] [address] [place] [address] PCP - General Family Medicine 03/30/22 Sammi Chanel RPh [address] [place] [address] [address] [place] [address] Pharmacist Pharmacy 01/18/23 02/16/23 Amy Sanchez CDE [address] [place] [address] [address] [place] [address] Functional Director 07/06/23 07/20/23 Cristiane Kam RN [address] [place] [address] [address] [place] [address] Press Writer 07/06/23 07/13/23 Cristiane Kam, RN [address] [place] [address] [address] [place], [place] [id number] Press Writer 07/14/23 08/02/23 Miri Rincon, [address] [place] [address] Transportation Logistics Internship 01/24/24 03/25/24 Jany Mariee, RN [address] [place] [address] [address] [place] [address] Press Writer 02/08/24 Sabiha Jimenez, [address] [place] [address] Pharmacist Pharmacy 02/20/24 02/20/24 documented as of this encounter
--- OUTSIDE RECORDS SUMMARY | 2024-08-07 17:04 | XMS_ITS | Clinical Summary ---
Author Organization [facility] Address [address] [facility] [place] [address] Care Team Providers Care Curriculum And Instruction Director Name Role Phone Elliott Valente MD Primary Care Provider [phone] Source Comments [facility],non-owned Affiliates and Associated Physician Practices is amultiple site organization consisting of ambulatory clinics and hospital sitesin [place], [place], [place] and [place]. This disclosure is being madepursuant to the Care Everywhere program and may not contain all information available regarding this patient. Last updated 18.[facility] Allergies Active Allergy Reactions Criticality Noted Date [...] Active vitamin D, ergocalciferol, (Drisdol) 1.25 MG (58602 UT) capsule TAKE 1 CAPSULE BY MOUTH [...] BE USED WITH THE 5MG 04/21/2023 Active Zooplus CONTOUR NEXT TEST test strip Use 1 (one) strip as instructed SEE ADMIN INSTRUCTIONS 12/26/2022 Active guaiFENesin ER 12hr (Mucinex) 600 MG tablet Take 1 (one) tablet by mouth 01/16/2024 Active Insulin Glargine, 1 Unit Dial, (Toujeo) pen Inject 35 Units under the skin ict developer before breakfast AND 20 Units nightly. 09/26/2023 [...] Active Active Problems No known active problems Immunizations Name Administration Dates Next Due TDAP (7yrs+) 05/08/2024 Social History Tobacco Use Types Packs/Day Years Used Date Smoking Tobacco: Never Assessed PHQ-2 Answer Date Recorded Patient Health Questionnaire-2 Score 4 07/18/2024 Sex and Gender Information Value Date Recorded Sex Assigned at Female 07/05/2024 10:13 AM BACON STRINGER Gender Identity Female 07/05/2024 10:13 AM BACON STRINGER Sexual Orientation Not on file Last Filed Vital Signs Vital Sign Reading Time Taken Comments Blood Pressure 115/86 05/08/2024 5:00 PM BACON STRINGER Pulse 92 05/08/2024 3:04 PM BACON STRINGER Temperature 36.6 C (97.8 F) 05/08/2024 3:04 PM BACON STRINGER Respiratory Rate 16 05/08/2024 3:04 PM BACON STRINGER Oxygen Saturation 95% 05/08/2024 5:00 PM BACON STRINGER Inhaled Oxygen Concentration - - Weight - - Height - - Body Mass Index - - Plan of Treatment Upcoming Encounters Date Type Department Care Team (Late st Contact Info) Description 10/11/2024 11:00 AM CDT Office Visit [facility] - Orthopedic Surgery [address] [place] [address] Gerson Espinosa, DO [address] [address] Health Maintenance Due Date Last Done Comments [...] 02/25/2016, Additional history exists COVID-19 VACCINE ( season) 2023 03/06/2021, 07/28/2020 DEPRESSION SCREENING 05/01/2024 [...] on patient's age to complete this topic Care Teams Curriculum And Instruction Director Relationship Specialty Start Date End Date Elliott Valente MD [address] [facility] [place] [phone] PCP - General Family Medicine 05/08/24
--- OUTSIDE RECORDS SUMMARY | 2024-08-07 17:04 | XMS_ITS | Clinical Summary ---
Author Organization [facility] Address [address] [place] [address] Care Team Providers Care Museum Informatics Specialist Name Role Phone Elliott Valente MD Primary Care Provider [phone] Jany Mariee RN Unavailable [phone] Allergies Active Allergy Reactions Criticality Noted Date [...] [place]. Assessment & Plan (06/24/2024 11:55 AM ENTRY LEVEL ELECTRICIAN): The patient continue with Wixela one puff twice a day. Patient will continue with Singulair. 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 Assessment & Plan (06/01/2022 2:19 PM ENTRY LEVEL ELECTRICIAN): The patient has a history of asthma [...] benefit of other non-opioid pain therapies. Immunization: [id number]: Highly Recommended Fodfxne46: Highly Recommended PCV20: Highly Recommended Influenza: Highly [...] CDT - 07/26/2024 7:47 PM CDT Emergency [facility] [address] [place] [address] Avtar Ribeiro MD Osborn, Palak Joshi MD Fall, subsequent encounter (Primary Dx); Failed total right knee replacement, initial encounter Discharge Disposition: Discharge to home or self care 06/24/2024 11:30 AM ENTRY LEVEL ELECTRICIAN Office Visit [facility]monary [address] [address] Lupe Walters NP SUKUMAR (obstructive sleep apnea) (Primary Dx); Moderate persistent asthma without complication 06/24/[address] [address] Chase Levin MD Orders Only 05/17/2024 Telephone [facility] Family Medicine at [address] [place] [address] Elliott Valente MD Medical Question/Miscellaneou [...] Patient decision),04/28/2023(Deferred: Patient decision),03/01/2022(Deferred: Other),12/30/2021(Deferred: Patient decision),03/06/2021 [employer] ([employer]) SARS-CoV-2 Vaccination 07/28/2020 PPD TEST 12/08/2023,11/29/2023 [...] Factor V Leiden DVT (deep venous thrombosis) ([facility]) 5 clots in 2007 due to Factor 5 clotting disorder after [...] drink = 0.6 oz pur e alcohol) [facility] Utilities Answer Date Recorded In the past 12 months has e magnetic[employer]io, gas, oil, or water [employer] threatened to shut off services in your [...] 02/01/2024 How often do you attend chur or christian services? Never 02/01/2024 Do you belong to any clubs o r organizations such as synagogue groups, unions, fraternal or athletic groups, or [...] staff should administer the PHQ-9) 6 09/11/2023 [facility] - Occupational Stress Questionnaire Answer Date [...] any time in the past 12 m [facility], were you homeless or living in a usp (including now)? No 02/01/2024 Personal Safety Answer [...] on file Legal Sex Female 8:39 PM ENTRY LEVEL ELECTRICIAN Gender Identity Not on file Sexual Orientation [...] 07/26/2024 10:23 AM CDT Plan of Treatment Health Maintenance Due [...] 11/17/2024 11/18/2023, 08/30, 05/18/2023, Additional history exists Fall Risk Assessment 02/05/2025 02/06/2024, 09/15/2023, 01/21/2022, Additional history exists eGFR 07/26/2025 07/26/2024, 10/0 08/2023, 01/31/2024, Additional history exists Colon Cancer Screening-DNA Stool [...] HEPATITIS C ANTIBODY Routine 06/21/2019 10:05 AM ENTRY LEVEL ELECTRICIAN Medicare annual wellness visit, subsequent SCREENING MAMMOGRAM BILATERAL W MARTÍNEZ Routine 05/24/2018 4:18 PM ENTRY LEVEL ELECTRICIAN PAP SMEAR Routine 09/09/2014 COLONOSCOPY Routine 05/01/2010 [...] MD LAB BLOOD ORDERABLES Fin al Result [facility] Department [place] [address] [phone] * Protime-INR (07/26/2024 12:20 PM CDT) Pathologist [facility] PT 11.7 9.7 - 13.0 sec INR 1.08 0.90 - 1.[address] [facility] Comment: Interpretive data Oral anticoagulant therapeutic ranges: Venous thromboembolism prophylaxis or treatment: 2.0-3.0 CARDIOLOGY Standard range: 2.0-3.0 High-intensity range: 2.5-3.5 Refer to indication-specific guidelines for appropriate target ranges for prosthetic heart valve replacement. Current interpretive data was last revised on 2019. Blood 07/26/2024 12:2 0 PM CDT 07/26/2024 12:30 PM CDT us Avtar Ribeiro MD LAB BLOOD ORDERABLES Fin al Result [facility] Department [place] [address] * Differential, auto (07/26/2024 11:30 AM CDT) Pathologist [facility] Neutrophil abs 4.1 1.5 - 6.5 K/cumm Imm gran abs 0.0 0.0 - 0.1 K/cumm [facility] Lymphocyte abs 1.6 0.8 - 3.3 K/cumm [facility] Monocyte abs 0.4 0.2 - 0.8 K/cumm [facility] Eosinophil abs 0.1 0.0 - 0.5 K/cumm [facility] Basophil abs 0.0 0.0 - 0.1 K/cumm [facility] Neutrophil pct 64.6 % [facility] Comment: Interpretive Data Percent cell count reference ranges are not reported, since discordance with absolute values may lead to misinterpretation of CBC data. Current Interpretive Data was last revised on 2017. Imm gran pct 0.2 % [facility] Comment: Interpretive Data Percent cell count reference ranges are not reported, since discordance with absolute values may lead to misinterpretation of CBC data. Current Interpretive Data was last revised on 2017. Lymphocyte pct 25.5 % [facility] Comment: Interpretive Data Percent cell count reference ranges are not reported, since discordance with absolute values may lead to misinterpretation of CBC data. Current Interpretive Data was last revised on 2017. Monocyte pct 7.0 % [facility] Comment: Interpretive Data Percent cell count reference ranges are not reported, since discordance with absolute values may lead to misinterpretation of CBC data. Current Interpretive Data was last revised on 2017. Eosinophil pct 2.1 % [facility] Comment: Interpretive Data Percent cell count reference ranges are not reported, since discordance with absolute values may lead to misinterpretation of CBC data. Current Interpretive Data was last revised on 2017. Basophil pct 0.6 % [facility] Comment: Interpretive Data Percent cell count reference ranges are not reported, since discordance with absolute values may lead to misinterpretation of CBC data. Current Interpretive Data was last revised on 2017. Blood 07/26/2024 11:3 0 AM CDT 07/26/2024 11:41 AM CDT us Avtar Ribeiro MD LAB BLOOD ORDERABLES Fin al Result [facility] Department [place] [address] * (ABNORMAL) CBC with auto differential (07/26/2024 11:30 AM CDT) WBC 6.3 3.8 - 9.9 K/cumm Hgb 13.7 11.9 - 15.5 g/dL [facility] Hct 41.5 35.6 - 45.5 % [facility] Plt 271 150 - 400 K/cumm [facility] MPV 10.9 9.1 - 12.[address] [facility] RBC 4.80 3.90 - 5.20 M/cumm [facility] MCV 86.5 81.3 - 96.[address] [facility] MCH 28.5 27.1 - 33.[address] [facility] MCHC 33.0 32.3 - 35.7 g/dL [facility] RDW CV 16.5(H) 11.1 - 14.9 % [facility] RDW SD 52.0(H) 35.7 - 48.[address] [facility] NRBC abs 0.00 0.00 - 0.01 K/cumm [facility] Blood 07/26/2024 11:3 0 AM CDT 07/26/2024 11:41 AM CDT Avtar Ribeiro MD LAB BLOOD ORDERABLES Fin al Result Performing Organization Address City/[facility] Co de Phone Number [facility] [place] [address] * Check Sample (07/26/2024 10:54 AM CDT) ABO Rh A Positive [facility] OTHER 07/26/2024 10:5 4 AM CDT 07/26/2024 11:05 AM CDT Avtar Ribeiro MD LAB BLOOD ORDERABLES Fin al Result Performing Organization Address [facility] de Phone Number [facility] [place] [employer] [place] [address] [facility] * (ABNORMAL) Urinalysis reflex to microscopic (07/26/2024 10:54 AM CDT) Color, ur Yellow Yellow Clarity, ur Clear Clear [facility] Specific gravity, ur 1.034(H) 1.003 - 1.[address] [facility] pH, urine 6.[address] [facility] Comment: Interpretive Data U rine pH is affected by diet, medications, systemic acid-base disturbances, and renal tubular function. pH may affect urinary stone formation. For example, urine pH below 6.0 may help reduce the tendency for calcium phosphate stones and pH greater than 6.0 may reduce the tendency for uric acid stone formation. Source: [facility] [employer] Current Interpretive Data was last revised on 2017 Protein, ur ql Trace Negative [facility] Glucose, ur ql Negative Negative [facility] Ketones, ur 1+(A) Negative [facility] Bilirubin, ur Negative Negative [facility] Blood, ur Negative Negative [facility] Urobilinogen, ur 2.0(A) <2.0 mg/dL [facility] Nitrite, ur Negative Negative [facility] Leukocyte esterase, ur Negative Negative [facility] UA reflex comment Reflex conditions for microscopic UA not met. [facility] Urine 07/26/2024 10:5 4 AM CDT 07/26/2024 11:00 AM CDT us Rylan Nicole MD LAB URINE ORDERABLES Final Res ult IGLESIA [facility] Department [place] [address] * eGFR (07/26/2024 10:37 AM CDT) eGFR [...] ORDERABLES Final Res ult Performing Organization Address City/[facility]/ZIP Co de Phone Number [facility] Department [place] [address] * Type and screen (07/26/2024 10:37 AM CDT) Kimberly, indirect Negative ABO Rh A Positive [facility] Blood 07/26/2024 10:3 7 AM CDT 07/26/2024 10:48 AM CDT Narrative [facility] - 07/26/2024 11:43 AM CDT Has the patient had Daratumumab or Isatuximab in the past 6 months?->Unknown Rylan Nicole MD LAB BLOOD BANK TEST ORDERABLES Final Result Performing Organization Address [facility] Co de Phone Number [facility] Department [place] [address] * (ABNORMAL) Comprehensive metabolic panel (07/26/2024 10:37 AM CDT) Pathologist [facility] Sodium 142 135 - 145 mmol/L Potassium, pl 4.4 3.3 - 4.9 mmol/L [facility] Comment:Hemolyzed; Potassium value may be falsely elevated by as much as 0.3-0.5 mmol/L. Suggest redraw and reanalysis. Chloride 108 97 - 110 mmol/L [facility] CO2 24 22 - 32 mmol/L [facility] Anion gap 10 2 - 15 mmol/L [facility] BUN 11 6 - 25 mg/dL [facility] Creatinine 0.49(L) 0.60 - 1.10 mg/dL [facility] Glucose 144 70 - 199 mg/dL [facility] Comment: Interpretive Data Fasting glucose >/= 126 [...] 2022. Calcium 8.5 8.5 - 10.3 mg/dL [facility] Bilirubin, total 1.2 0.1 - 1.2 mg/dL [facility] Protein, pl 6.2(L) 6.5 - 8.5 g/dL [facility] Albumin 3.8 3.5 - 5.0 g/dL [facility] Alk phos 106 40 - 130 Units/L [facility] ALT 31 7 - 45 Units/L [facility] AST 40 10 - 45 Units/L [facility] Comment:Hemolyzed; result ma y be falsely elevated Blood 07/26/2024 10:3 7 AM CDT 07/26/2024 10:50 AM CDT Rylan Nicole MD LAB BLOOD ORDERABLES Final Res ult Performing Organization Address City/[facility]/ZIP Co de Phone Number [facility] Department [place] [address] * POCT glucose (07/26/2024 10:30 AM CDT) Pathologist [facility] Glucose, POC 144 70 - 199 mg/dL Blood 07/26/2024 10:3 0 AM CDT 07/26/2024 10:30 AM CDT Duran Cavazos MD LAB POCT ORDERABLES - DEVICE F inal Result Performing Organization Address [facility] Co de Phone Number [facility] Department [place] [address] * (ABNORMAL) Hemoglobin A1c (11/18/2023 2:48 AM CDT) Pathologist [facility] Hgb A1C 6.5(H) 4.0 - 5.6 % Estimated Average Glucose 140 mg/dL [facility] Comment: The ADA recommends reporting an estimated Average Glucose (eAG) with all Hemoglobin A1c results using the equation derived from a study of 507 normal and diabetic adults. Minority populations were underrepresented and children were not included. (Diabetes Care 31:2891-0503, 2008). The eAG is not equivalent to a fasting glucose. Blood 11/18/2023 2:48 AM CDT 11/18/2023 3:03 AM CDT Jay Peña MD LAB BLOOD ORDERABLES Final Result [facility] [address] [facility] [place] [address] * Lipid panel (11/18/2023 2:48 AM CDT) [...] LAB BLOOD ORDERABLES Final Result IGLESIA WHITE [address] [facility] [place] [address] * Albumin Creatinine Ratio, Urine (09/21/2023) SCRIBED Creatinine, Urine 32 20 - 275 EXTERNAL LAB SCRIBED Microalbumin 1.0 0 - 29 EXTERNAL LAB SCRIBED Micro ACR, Urine 0 EXTERNAL LAB SCRIBED Microalb/Creat Ratio 31 EXTERNAL LAB Urine us Historical Provider LAB URINE ORDERABLES Leydi elen Result EXTERNAL LAB * Stool DNA - Cologuard (08/09/2022 12:14 PM CDT) Stool DNA - Cologuard Negative Negative [facility] [facility] (CLIA #:[id number]) Comment: NEGATIVE TEST RESULT. A negative Cologuard [...] (Michael Thomas al, N Engl J Med 2014;370(14):8584-9266) The normal value (reference range) for this assay is negative. COLOGUARD RE-SCREENING RECOMMENDATION: Periodic colorectal cancer screening is an important part of preventive healthcare for asymptomatic individuals at average risk for colorectal cancer. Following a negative Cologuard result, the [place] Cancer Society and U.S. Multi-Society Task Force screening guidelines recommend a Cologuard re-screening interval of 3 years. References: [place] [employer] Society Guideline for Colorectal Cancer Screening: https://www.cancer.org/cancer/bmnxq-fgybut-xmxlas/rmrzoazzj-pzfqwjqxu-bvfacce/ac s-rec ommendations.html.; Donte ZEPEDA, Bharat CR, Candace IGLESIAS, Colorectal Cancer Screening: Recommendations for Physicians and Patients from the U.S. Multi-Society Task Force on Colorectal Cancer Screening , Am J Gastroenterology 2017; 112:8914-5333. TEST DESCRIPTION: Composite algorithmic analysis of stool [...] Agrawal. et al, N Engl J Med 2014;370(14):7285-5435.) Cologuard may produce a false negative or false positive result (no colorectal cancer or precancerous polyp present at colonoscopy follow up). A negative Cologuard test result does not guarantee the absence of CRC or advanced adenoma (pre-cancer). The current Cologuard screening interval is every 3 years. ([place] Cancer Society and U.S. Multi-Society Task Force). Cologuard performance data in a 10,000 patient pivotal study using colonoscopy as the reference method can be accessed at the following location: www.[employer].com/results. Additional description of the Cologuard test process, warnings and precautions can be found at www.[employer].com. Stool 08/09/2022 12:1 4 PM CDT 08/10/2022 7:48 PM CDT us Elliott Valente MD LAB BODY FLUIDS AND STOOLS ORDER ISABEL Final Result Performing Organization Address [facility] Co de Phone Number [facility] (CLIA #:[id number]) [address] [address] * Diabetic Eye Exam (01/22/2021) Historical Provider HEALTH MAINTENANCE Final Result * Hepatitis C antibody (06/21/2019 10:05 AM ENTRY LEVEL ELECTRICIAN) Hep C Ab NONREACT NONREACTIVE [facility] Comment: Siemens CentaurXP using PK [...] method. Blood specimen (specimen) 06/21/2019 10:05 AM ENTRY LEVEL ELECTRICIAN 06/21/2019 12:21 PM ENTRY LEVEL ELECTRICIAN Narrative Resulting Agency Comment CLI Todd Cabrales MD LAB MICROBIOLOGY - [facility] Final Result Performing Organization Address [facility] de Phone Number [address] [phone] * Screening Mammogram Bilateral W Martínez (05/24/2018 4:18 PM ENTRY LEVEL ELECTRICIAN) Anatomical Region Laterality Modality Breast Bilateral Mammography 05/24/2018 4:18 PM ENTRY LEVEL ELECTRICIAN Impressions 05/25/2018 8:18 AM ENTRY LEVEL ELECTRICIAN BI-RAD 1 NEGATIVE There is no mammographic evidence of malignancy. A 1 year screening mammogram is recommended. The patient has been or will be contacted. The patient will be entered into a reminder system with a target due date of 1 year for her next screening exam. Electronically signed by: Dr. Avtar Betts M.D. nh/anitra:05/25/2018 08:18:04 Sleeve Setter Lockstitch: Elisabeth BARTON)(M), [facility] letter sent: Normal Exam Reading location: [facility] BI-RADS: 1 Negative [EOD] Narrative 05/25/2018 8:18 AM ENTRY LEVEL ELECTRICIAN - MG BILATERAL DIGITAL SCREENING MAMMOGRAM 3D/2D [...] Electronically signed by: Dr. Avtar meza/anitra:05/25/2018 08:18:04 Sleeve Setter Lockstitch: Elisabeth ESPINOZA (R)([place]), [facility] letter sent: Normal Exam Reading location: [facility] BI-RADS: 1 Negative [EOD] Cecilio Villaseñor MD IMG MAMMO PROCEDURES Final Result * PAP SMEAR (09/09/2014) Pap smear Normal Historical Provider HEALTH MAINTENANCE Final Result * COLONOSCOPY (05/01/2010) Colonoscopy Unknown Historical Provider HEALTH MAINTENANCE Final Result from Last 3 Months or Most Recently Relevant to Health Maintenance Insurance MEDICARE [facility] MEDICARE IDPA Advance Directives For more information, please contact: [phone] Documents on File Type Date Recorded Patient Inside Plant Supervisor Expl anation ADVANCE DIRECTIVE 07/30/2024 11:20 PM POLST * Full Code (Latest Code Status on File) Date Activated Date Inactivated Comments 01/31/2024 8:30 PM 02/07/2024 4:27 PM * Full Code Date Activated Date Inactivated Comments 11/17/2023 8:37 PM 11/23/2023 8:49 PM Care Teams Museum Informatics Specialist Relationship Specialty Start Date End Date Elliott Valente MD PCP - General Family Medicine 03/30/22 Jany Mariee, KARIME [address] [place] [address] [address] [place] [address] Residential Sales Executive 02/08/24
--- OUTSIDE RECORDS SUMMARY | 2024-08-07 17:04 | XMS_ITS | Continuity of Care Document ---
Author Organization [facility] Address [address] [place] [address] Phone Care Team Providers Care Division Order Analyst Name Role Phone Rufus Austinpablito Unavailable Unavailable Advance Directives Directive Yes / No Effective Date File Name No Information Encounters Encounter Description Practice Location Reason(s) For Visit Diagnoses Date Provider Providers Copied on Encounter [facility] [address], [id number], [place] tel:[phone] [facility] No Information Dec-3 4 Normanaamir PearceRufus er. [address], [address], [place], [place], [id number] , [place]. tel:[phone] Family History Family Member Type Diagnosis Age At Onset No Information Payers Payer name Insurance type Covered democrat ID Authoriza tion(s) No Information Social History [...]
--- OUTSIDE RECORDS SUMMARY | 2024-08-07 17:04 | XMS_ITS | Continuity of Care Document ---
Author Organization [facility] Address [address] [place] [address] Phone Care Team Providers Care Steamer Blocker Name Role Phone Devin Valencia MD Unavailable [...] Diagnoses Date Provider Providers Copied on Encounter [facility], [address], [place], [place], [id number], [place] tel:[phone] [facility] No Information 7 Erik [address]. [address] [address], [place], [place], [id number], [place]. tel:[phone] [employer], [address], [place], [place], [address], [place] tel:[phone] [facility] Other urticariaThru sh, oralRosacea, unspecified Dec- 7 Erik Beltran. [address], [place], [place], [id number], . tel:[phone] Referring Provider: Cecilio Villaseñor [address] [place] [address] [address], [place], [address]. tel:[phone] [employer], [address], [place], [place], [address], tel:[phone] [facility] ALLERGIC URTICARIA 7 Conversion Doctor. [address] [place] [address], [facility], . [employer], [address], [place], [place], [address], tel:[phone] [facility] RHINITIS DUE TO POLLEN 1 Conversion Doctor. [address] [place] [address], [facility], . Family History Family Member Type Diagnosis Age At Onset No Information Payers Payer name Insurance type Covered libertarian ID Authoriza tion(s) MEDICARE [place] [id number] Social History Type Description Quantity Date Captured [...]
--- OUTSIDE RECORDS SUMMARY | 2024-08-07 17:04 | XMS_ITS | Clinical Summary ---
Author Organization [facility] Address [address] [place] [address] Care Team Providers Care Fur Blower Name Role Phone Elliott Valente MD Primary Care Provider [phone] Medications No known medications Active Problems No [...] Comments Blood Pressure 142/84 05/24/2018 4:09 PM LIVING MANAGER Pulse 105 10/19/2017 3:09 PM CDT Temperature 36.6 C (97.9 F) 05/24/2018 4:09 PM LIVING MANAGER Respiratory Rate - - Oxygen Saturation - - Inhaled Oxygen Concentration - - Weight 152.9 kg (337 lb) 01/18/2018 3:28 PM CDT Height 165.1 cm (5' 5) 05/24/2018 4:09 PM LIVING MANAGER Body Mass Index 56.08 01/18/2018 3:28 PM CDT Plan of Treatment Health Maintenance Due Date Last Done Comments Colorectal Cancer Screening Colonoscopy (10 Years) 1955 Hepatitis C 12/26/1975 Mammogram Screening 1997 Annual Medicare Wellness Visit 2022 Dexa Scan (General) 2022 Pneumococcal Vaccine: 65+ Years (1 of 1 - PCV) 2022 COVID-19 Vaccine (2023-2 5 season) 2023 03/06/2021, 07/28/2020 DTaP, Tdap and Td Vaccines ( 2 - Td or Tdap) 01/10/2029 01/10/2019 RSV [...] 20 Months Aged Out No longer eligible b ased on patient's age to complete this topic Insurance [employer] Care Teams Fur Blower Relationship Specialty Start Date End Date Elliott Valente MD [address] [place] [id number] PCP - General FAMILY PRACTICE 08/30/22
[2024-08-07 17:18] LABS: Lactic Acid Reflex 1.2 mmol/L (0.7-2.0)
[2024-08-07 17:45] LABS: Influenza A QL RT-PCR Negative (Negative); Influenza B QL RT-PCR Negative (Negative); RSV RNA, RT-PCR Negative (Negative); SARS-CoV-2 RNA PCR Negative (Negative)
[2024-08-07 17:48] LABS: Add Urine Microscopic? YES; Appearance Urine Clear (Clear); Bacteria Urine 4+ /hpf; Bilirubin Urine Negative (Negative); Blood Urine Negative (Negative); Color Urine Dark Yellow (Yellow); Glucose Urine UA Negative (Negative); Ketones Urine Trace mg/dL (Negative); Leukocyte Esterase Ur Trace LEU/UL (Negative); Need Manual Microscopic Reviewed; Nitrate Urine Positive (Negative); Non Pathogenic Casts 0-2; Protein Urine Negative (Negative); RBC Urine 0-2 /hpf (0-2); Squamous Epithelial Cell Urine Few /hpf (Few); WBC Urine 0-5 /hpf (0-3); pH Urine 5.5 (5.0-9.0)
[2024-08-07] MEDS: VANCOMYCIN 1,250 MG/NS 250 ML 1,250 MG/250 ML BAG 166.67 MG IVPB ×2 (18:12→19:55)
--- NOTE | 2024-08-07 21:50 | ADMGEN ---
This patient, Roxana Kaminski, was admitted to 2 Medical Room 259-. Patient/family oriented to hospital policies and general routines including ID bracelet, bed and alarms, visiting hours, pain management, procedures, bathroom and other care routines, personal items, smoking policy, room service/diet, and visiting hours. Information on how to activate the Rapid Response Team has been discussed. Patient/Family are encouraged to report perceived risks to care and to ask questions if they do not understand what they are told or what they should do.
[2024-08-07] MEDS: MEROPENEM 1 GM/NS 100 ML 1 GM/100 ML BAG IVPB (23:03)
[2024-08-07] MEDS: HEPARIN SODIUM 5,000 UNITS/ML VIAL 5000 UNITS SUB-Q (23:04)
[2024-08-08] VITALS (10 sets, daily range): BP systolic 110–151; BP diastolic 69–77; PULSE 50–107; RESP 18–24; TEMP 36.3–36.7; O2SAT 93–97
--- NOTE | 2024-08-08 | ECHO_ITS ---
Patient Info Name: Roxana Kaminski Age: 68 years : 1955 Gender: Female Ht: 64 in Wt: 292 lbs BSA: 2.53 m2 BP: 130 / 72 mmHg Technical Quality: Good Exam Date: 08/08/2024 1:33 PM Exam Location: Echo Lab Patient Status: Inpatient Admit Date: 08/08/2024 Staff Ordering Physician: Yan Santillan MD Test Administrator: Shannon Mensah RDCS Attending Provider: Yan Santillan MD Referring Physician: Jacque CUETO; Exam Type: CA echo dop color flow w con Study Info Indications - Elevated BNP Complete two-dimensional, color flow and Doppler transthoracic echocardiogram is performed with contrast to opacify the left ventricle and to improve the deliniation of the left ventricle endocardial borders. Contrast/Agitated Saline Contrast/Ag. Saline: Definity Amount: 2.00 ml Existing IV Access: Yes IV Access Condition: patent with no signs of infiltration Summary 1. Left ventricular chamber dimension is normal. 2. Left ventricular systolic function is hyperdynamic, estimated at >70%. 3. There is moderately increased left ventricular wall thickness. 4. The left ventricular diastolic function is grade I diastolic dysfunction. 5. Right ventricular chamber dimension is severely enlarged. 6. Right ventricular systolic function is normal. 7. Flattening of the septum in diastole and systole consistent with right ventricular volume and pressure overload. 8. Right atrial chamber dimension is moderately enlarged. 9. There is moderate tricuspid valve regurgitation. Severity of regurgitation may be underestimated due to eccentricity of the jet. 10. Severe pulmonary hypertension, estimated pulmonary arterial systolic pressure is 105 mmHg. Left Ventricle Left ventricular chamber dimension is normal. Left ventricular systolic function is hyperdynamic, estimated at >70%. There is moderately increased left ventricular wall thickness. The left ventricular diastolic function is grade I diastolic dysfunction. Right Ventricle Flattening of the septum in diastole and systole consistent with right ventricular volume and pressure overload. Right ventricular chamber dimension is severely enlarged. Right ventricular systolic function is normal. Left Atria Left atrial chamber dimension is normal. Right Atria Right atrial chamber dimension is moderately enlarged. Atrial Septum Intact interatrial septum visualized by color flow imaging. Aortic Valve The aortic valve is not well visualized. There is no aortic valve stenosis. There is no aortic valve regurgitation. Pulmonic Valve The pulmonic valve is not well visualized. There is trace pulmonic regurgitation. Mitral Valve There is trace mitral valve regurgitation. The mitral valve annulus is mildly calcified. Tricuspid Valve There is moderate tricuspid valve regurgitation. Severity of regurgitation may be underestimated due to eccentricity of the jet. Severe pulmonary hypertension, estimated pulmonary arterial systolic pressure is 105 mmHg. Pericardium/Pleural There is no pericardial effusion. Inferior Vena Cava Dilated inferior vena cava with <50% collapse upon inspiration consistent with elevated right atrial pressure, 15 mmHg. Aorta The aortic root size at the sinus of Valsalva is normal. Left Ventricular Outflow Tract Name Value Normal LVOT 2D LVOT Diameter 1.96 cm LVOT Doppler LVOT Peak Gradient 4 mmHg LVOT Mean Gradient 2 mmHg LVOT VTI 13.55 cm LVOT VTI/AV VTI Ratio 0.52 LVOT Stroke Volume 40.92 ml LVOT CO 11.32 l/min LVOT CI 4.48 L/min/m2 Pulmonic Valve Name Value Normal PV Doppler PV Peak Gradient 2 mmHg Tricuspid Valve Name Value Normal TV Regurgitation Doppler TR Peak Velocity 474.75 cm/s TR Peak Gradient 67 mmHg Estimated PAP/RSVP RA Pressure 15 mmHg <=5 PA Systolic Pressure 105 mmHg <36 RV Systolic Pressure 105 mmHg <36 Aorta Name Value Normal Ascending Aorta Ao Root Diameter (MM) 2.95 cm Ao Root Diam Index (MM) 1.17 cm/m2 Aortic Valve Name Value Normal AV Doppler AV Peak Velocity 149.35 cm/s AV Peak Gradient 9 mmHg AV Mean Gradient 6 mmHg AV VTI 25.87 cm AV Area (Cont Eq VTI) 1.58 cm2 >=3.00 AV Area (Cont Eq Dieudonne) 1.98 cm2 AV Regurgitation 2D LVOT Area 3.02 cm2 Ventricles Name Value Normal LV Dimensions 2D/MM IVS Diastolic Thickness (2D) 1.10 cm 0.60-1.00 LVID Diastole (2D) 3.87 cm 3.80-5.20 LVIW Diastolic Thickness (2D) 1.12 cm 0.60-0.90 LVID Systole (2D) 2.89 cm 2.20-3.50 LVOT Diameter 1.96 cm LV Mass (2D Cubed) 140.01 g 67.00-162.00 LV Mass Index (2D Cubed) 0.01 g/cm2 0.00-0.01 Relative Wall Thickness (2D) 0.58 LV Fractional Shortening/Ejection Fraction 2D/MM LV Fractional Shortening (2D) 25 % 27-45 LV EF (2D Teicholz) 51 % 54-74 LV Diastolic Volume (4C MOD) 88.27 ml LV EF (4C MOD) 65 % LV Diastolic Volume (2C MOD) 57.97 ml LV EF (2C MOD) 70 % LV Diastolic Volume (BP MOD) 74.43 ml 46.00-106.00 LV Diastolic Volume Index (BP MOD) 0.03 l/m2 0.03-0.06 LV Systolic Volume (BP MOD) 25.75 ml 14.00-42.00 LV Systolic Volume Index (BP MOD) 0.01 l/m2 0.01-0.02 LV EF (BP MOD) 65 % 54-74 LV Diastolic Length (4C) 7.66 cm LV Systolic Length (4C) 6.23 cm LV Stroke Volume (4C MOD) 57.22 ml RV Dimensions 2D/MM RVID Diastole (2D) 5.76 cm 2.50-3.50 Atria Name Value Normal LA Dimensions LA Dimension (MM) 4.28 cm 2.70-3.80 LA Volume (4C A-L) 39.59 ml LA Volume (BP A-L) 47.69 ml RA Dimensions RA Area (4C) 28.68 cm2 <=18.00 Report Signatures
[2024-08-08] MEDS: traMADol HCL (*CRX) 50 MG TABLET PO ×3 (02:02→21:11)
[2024-08-08] MEDS: FUROSEMIDE INJ 40 MG/4 ML VIAL IV PUSH (02:48)
[2024-08-08] MEDS: AZITHROMYCIN 500 MG/NS 250 ML BAG 250 MG IVPB (02:48)
[2024-08-08 03:28] LABS: MRSA (PCR) DETECTED (NOT DETECTE)
--- NOTE | 2024-08-08 04:30 | P.HP_ITS ---
H&P: HPI History of Present Illness Date/Time: 08/08/24 04:30 Chief Complaint: 1. Confusion 2. Lethargy Narrative: Roxana Kaminski is a 68-year-old female with a medical history significant for depression w/anxiety, peripheral neuropathy, IDDM 2, vertigo, GERD, chronic pain syndrome, A residence of [facility], where she currently stays with plans to undergo Physical Rehabilitation in anticipation of a surgical repair of her left Achilles tendon; she has remained stable until her who was visiting requested a transfer to the ED due to a change in her perceived cognitive level. She was said to be confused, incoherent, increasingly somnolent, with evidence of visual hallucinations. With no known modifying factors to his symptoms, it was associated with also change directions as well as a researcher ADLs. There are no symptoms of fevers, flank pain, nausea vomiting, hematuria, diarrhea or skin/joint changes. At baseline she when wears his CPAP but has not been using it at the [facility]; she does not smoke/chew tobacco, drink alcohol or consume recreational/illicit drugs. Workup findings: ABG: PH 7.4; pCO2 36; P O2 72 D-dimer 0.69; INR 0.9; PT 12.8 WBC 14; HGB 14.9; MCV 90; PLT 304 Na 140; K 3.7; Cl 106; CO2 27; AG 7; BUN 11; CR 0.55; GFR > 60 Troponin l <0.012; BNP 1620 EKG: Sinus rhythm; occasional PVCs; left atrial enlargement; left posterior fascicular block. No evidence of acute ischemia UA: Positive nitrites; trace leukocyte esterase; 4+ bacteria; 0-5 WBC Influenza A/B, RSV, COVID-19: Negative Lactic acid 1.2 CXR: No acute cardiopulmonary pathology CT head: No acute intracranial findings CTA chest: 1. No pulmonary embolism. 2. Cardiomegaly. 3. Patchy areas of groundglass appearance suggestive of pneumonia versus edema Roxana Kaminski will be admitted, evaluated, and managed for physical deconditioning, altered mental status, fluid overload, UTI Review of Systems Review of Systems: All systems reviewed & are unremarkable except as noted in HPI and below PMFSH Past Medical History Medical History Depression, unspecified Essential (primary) hypertension Other idiopathic peripheral autonomic neuropathy Other acute postprocedural pain Sleep apnea, unspecified Anxiety disorder, unspecified Generalized anxiety disorder Major depressive disorder, recurrent, moderate Hyperlipidemia, unspecified Morbid (severe) obesity due to excess calories Unspecified severe protein-calorie malnutrition Type 2 diabetes mellitus without complications Pain in right hip Constipation, unspecified Other asthma Tachycardia, unspecified Urinary tract infection, site not specified Diarrhea, unspecified Other specified disorders of bone density and structure, unspecified site Acute upper respiratory infection, unspecified Pain in right knee Candidiasis of skin and nail Instability of internal left knee prosthesis, subsequent encounter Family History Family History (Updated 08/07/24 @ 22:01 by Karyna Arellano RN) Father Heart attack Mother Heart valve disease Other Parents Social History Social History (Updated 08/07/24 @ 20:01 by Gianna Zhu MD) Social History: Smoking status: Former smoker Tobacco type: cigarettes Alcohol intake: never Substance use: never Substance use type: does not use Do You Feel Safe in your Home?: Yes Lack of Transportation: No Lack of Food: Never True Current Housing: I Have Housing Concerned About Future Housing: No Difficulty Paying Gas/Electric Bills: No Difficulty Paying for Meds: No Currently Unemployed: No Education: High School Diploma/GED Difficulty w/ Childcare or Family Care: No Additional living arrangements comments: [facility] Resources concerns: No Meds Home Medications and Allergies Home Medications ?Medication ?Instructions ?Recorded ?Confirmed ?Type acetaminophen 650 mg 1,300 mg PO Q12H 08/07/24 08/07/24 History tablet,extended release (Arthritis Pain Relief (acetaminophen) ER) baclofen 5 mg tablet 5 mg PO Q8H PRN muscle spasm 08/07/24 08/07/24 History buspirone 10 mg tablet 10 mg PO BID 08/07/24 08/07/24 History ergocalciferol (vitamin D2) 1,250 1,250 mcg PO WEEKLY 08/07/24 08/07/24 History mcg (50,000 unit) capsule escitalopram oxalate 10 mg tablet 15 mg PO DAILY 08/07/24 08/07/24 History (Lexapro) fluticasone 250 mcg-salmeterol 50 1 inh inhalation Q12H 08/07/24 08/07/24 History mcg/dose blistr powdr for inhalation furosemide 20 mg tablet 20 mg PO BID 08/07/24 08/07/24 History gabapentin 300 mg capsule 300 mg PO TID 08/07/24 08/07/24 History insulin lispro 100 unit/mL 5 unit subcut .with meals 08/07/24 08/07/24 History subcutaneous solution ipratropium 0.5 mg-albuterol 3 mg 3 ml inhalation QID PRN shortness 08/07/24 08/07/24 History (2.5 mg base)/3 mL nebulization of breath or wheezing soln lidocaine 4 % topical patch 1 patch topical DAILY 08/07/24 08/07/24 History loperamide 2 mg capsule 2 mg PO Q6H PRN loose stool 08/07/24 08/07/24 History (Anti-Diarrheal (loperamide)) loratadine 10 mg capsule (Allergy 10 mg PO HS 08/07/24 08/07/24 History Relief (loratadine)) meclizine 25 mg chewable tablet 12.5 mg PO Q8H PRN dizziness 08/07/24 08/07/24 History (Antivert) metformin 500 mg tablet 500 mg PO DAILY 08/07/24 08/07/24 History montelukast 10 mg tablet 10 mg PO QPM 08/07/24 08/07/24 History multivitamin (Daily Multi-Vitamin 1 tablet PO DAILY 08/07/24 08/07/24 History tablet) nystatin 100,000 unit/gram topical 1 applic topical TID 08/07/24 08/07/24 History powder (Nyamyc) omeprazole 40 mg capsule,delayed 40 mg PO DAILY 08/07/24 08/07/24 History release ondansetron 4 mg disintegrating 4 mg PO Q6H PRN nausea and vomiting 08/07/24 08/07/24 History tablet potassium chloride 20 mEq 20 meq PO TID 08/07/24 08/07/24 History tablet,extended release(part/cryst) semaglutide 0.25 mg or 0.5 mg (2 0.25 mg subcut WEEKLY 08/07/24 08/07/24 History mg/3 mL) subcutaneous pen injector (Ozempic) tramadol 50 mg tablet 50 mg PO Q6H PRN pain (scale score 08/07/24 08/07/24 History 4-6) vit C 250 mg-vit E 90 mg-zinc 40 1 tablet PO BID 08/07/24 08/07/24 History mg-copper 1 [id number] capsule (PreserVision AREDS-2) Allergies Allergy/AdvReac Type Severity Reaction Status Date / Time cephalexin Allergy Intermediate Hives Verified 08/07/24 15:11 cortisone Allergy Intermediate Hives Verified 08/07/24 15:11 morphine Allergy Intermediate Hives Verified 08/07/24 15:11 Vital Signs Vital Signs - 24 hr 08/07/24 14:53 08/07/24 15:07 08/07/24 15:09 Temperature 97.6 F Pulse Rate 63 96 97 Respiratory Rate 14 15 18 Blood Pressure 104/84 84/66 L 104/84 Pulse Oximetry 93 92 92 Oxygen Delivery Nasal Cannula Oxygen Flow Rate 4 08/07/24 15:24 08/07/24 15:28 08/07/24 15:29 Temperature Pulse Rate 98 95 Respiratory Rate 11 L 14 Blood Pressure 89/56 L 115/79 Pulse Oximetry 96 95 95 Oxygen Delivery Nasal Cannula Oxygen Flow Rate 4 08/07/24 15:31 08/07/24 15:32 08/07/24 15:39 Temperature Pulse Rate 97 97 Respiratory Rate 18 Blood Pressure 131/74 Pulse Oximetry 96 96 Oxygen Delivery Nasal Cannula Oxygen Flow Rate 4 08/07/24 16:01 08/07/24 16:16 08/07/24 17:20 Temperature Pulse Rate 102 H 100 97 Respiratory Rate 22 H 17 16 Blood Pressure 148/87 H 114/82 120/80 Pulse Oximetry 97 97 Oxygen Delivery Oxygen Flow Rate 08/07/24 17:22 08/07/24 18:04 08/07/24 18:16 Temperature Pulse Rate 97 99 98 Respiratory Rate 16 19 14 Blood Pressure 120/80 121/71 107/70 Pulse Oximetry 97 96 95 Oxygen Delivery Oxygen Flow Rate 08/07/24 21:07 08/07/24 22:00 08/07/24 22:03 Temperature 98.2 F Pulse Rate 94 92 93 Respiratory Rate 15 20 Blood Pressure 113/90 120/62 Pulse Oximetry 96 94 Oxygen Delivery Oxygen Flow Rate 08/07/24 23:00 08/07/24 23:45 08/08/24 00:00 Temperature 98.3 F Pulse Rate 96 94 Respiratory Rate 20 Blood Pressure 119/64 Pulse Oximetry 96 96 Oxygen Delivery Nasal Cannula Oxygen Flow Rate 4 08/08/24 01:30 08/08/24 01:30 08/08/24 04:00 Temperature Pulse Rate 94 50 L Respiratory Rate 18 Blood Pressure Pulse Oximetry 96 96 Oxygen Delivery CPAP Nasal Cannula Oxygen Flow Rate 4 Exam Const: General: comfortable HENMT: Ears: TM's normal bilaterally Mouth: Yes dry mucous membranes Eyes: Sclera: sclerae normal Pupils: Equal, round and reactive pupils present Neck: Neck: supple Thyroid: thyroid normal Resp: Effort & Inspection: normal respiratory effort Cardio: Rate: regular rate Rhythm: regular rhythm Skin: General skin exam: normal color Neuro: General: No gait normal Speech: normal speech Motor exam (neuro): strength not 5/5 throughout and Abnormal motor strength present Extrem: General: normal to inspection and no pedal edema Psych: Mental Status: mental status grossly normal Affect: Anxious affect present H&P: Results Labs Labs: Short CBC 08/07/24 Range/Units 15:24 WBC 14.0 H (4.5-10.0) K/mm3 Hgb 14.9 (12.0-15.0) g/dL Hct 46.1 (37.0-47.0) % Plt Count 304 (150-375) k/mm3 BMP 08/07/24 15:24 Sodium 140 Potassium 3.7 Chloride 106 Carbon Dioxide 27 BUN 11 Creatinine 0.55 L Glucose 78 Calcium 8.7 Cardiac Enzymes 08/07/24 Range/Units 15:23 Troponin I < 0.012 (0.000-0.034) ng/mL Liver Function 08/07/24 Range/Units 15:24 Total Bilirubin 1.3 (0.2-1.3) mg/dL AST 20 (14-36) U/L ALT 22 (6-35) U/L Alkaline Phosphatase 91 (38-126) U/L Albumin 3.5 (3.5-5.1) g/dL Urine 08/07/24 Range/Units 17:20 Urine Color Dark yellow (Yellow) Urine Appearance Clear (Clear) Urine pH 5.5 (5.0-9.0) Ur Specific [place] 1.020 (1.001-1.035) Urine Protein Negative (Negative) mg/dL Urine Glucose (UA) Negative (Negative) mg/dL Assessment and Plan Assessment and plan (1) Elevated brain natriuretic peptide (BNP) level: Code(s): R79.89 - Other specified abnormal findings of blood chemistry Status: Acute (2) UTI (urinary tract infection): Code(s): N39.0 - Urinary tract infection, site not specified Status: Acute (3) Acute encephalopathy: Code(s): G93.40 - Encephalopathy, unspecified Status: Acute (4) Obesity: Code(s): E66.9 - Obesity, unspecified Status: Acute Plan Acute and principal conditions 1. Acute encephalopathy. probably metabolic 2. Sedentary status. 3. UTI 4. Fluid overload 5. Pneumonia Rx: A. IV Lasix; ECHO; Telemetry monitoring B. Falls and safety precautions C. Meropenem; Azithromycin D. Blood and urine Cx Chronic and stable conditions 1. Obesity. BMI 48 2. Left Achilles tendon rupture. 3. Depression w/Anxiety. 4. Peripheral neuropathy. 5. IDDM2. 6. Vertigo. Miscellaneous care 1. Code status. Full 2. Nutrition. Carb-controlled; Low Na 3. VTE prophylaxis. SCDs; [facility] Quality VTE Prophylaxis VTE prophylaxis: mechanical ordered and pharmacologic ordered Hospitalist MIPS Advance Care Plan I have confirmed that the patient's Advanced Care Plan is present, code status is documented, or surrogate decision maker is listed in patient medical record.: Yes Medication Reconciliation I have utilized all available resources to obtain, update and review the patients current medications (includes all prescriptions, OTC, herbals, cannabis, and nutritional supplements).: Yes The patient is not eligible for med reconciliation; the patient is in a emergent medical situation where delaying treatment would jeopardize the patients health.: Yes
[2024-08-08] MEDS: HEPARIN SODIUM 5,000 UNITS/ML VIAL 5000 UNITS SUB-Q ×3 (05:28→21:12)
[2024-08-08] MEDS: MUPIROCIN 2% OINT 22 GM TUBE 1 APPLIC EACH NARE ×2 (05:29→21:12)
[2024-08-08] MEDS: MEROPENEM 1 GM/NS 100 ML 1 GM/100 ML BAG IVPB (05:30)
[2024-08-08 05:34] LABS: Basophils Absolute Auto 0.1 K/mm3 (0.0-0.1); Basophils Percent Auto 0.8 % (0.2-1.2); Eosinophils Absolute Auto 0.2 K/mm3 (0-0.3); Eosinophils Percent Auto 2.9 % (0-4.4); Hemoglobin 14.3 g/dL (12.0-15.0); Immature Granulocyte Absolute 0.04 K/mm3 (0.00-0.031); Immature Granulocyte Percent A 0.5 % (0-0.5); Lymphocytes Absolute Auto 2.02 K/mm3 (0.9-3.2); Lymphocytes Percent Auto 25.5 % (18.3-44.2); Mean Corpuscular HGB Conc 30.4 g/dl (32-36); Mean Corpuscular Hemoglobin 28.8 pg (26-34); Mean Corpuscular Volume 94.6 fl (80-100); Mean Platelet Volume 10.8 fl (7.4-10.4); Monocytes Absolute Auto 0.7 K/mm3 (0.1-0.6); Monocytes Percent Auto 8.5 % (2.6-8.5); Neutrophils Absolute Auto 4.9 K/mm3 (1.3-6.7); Neutrophils Percent Auto 61.8 % (45.5-73.1); Platelet Count Result 282 k/mm3 (150-375); Red Blood Count 4.97 M/mm3 (4.2-5.4); Red Cell Distribution Width 15.9 % (11.5-14.5); White Blood Count 7.9 K/mm3 (4.5-10.0)
[2024-08-08 05:48] LABS: Alanine Aminotransferase 19 U/L (6-35); Albumin Level 3.4 g/dL (3.5-5.1); Alkaline Phosphatase 91 U/L (38-126); Anion Gap 9 mmol/L (4-12); Aspartate Amino Transferase 22 U/L (14-36); Bilirubin,Total 1.5 mg/dL (0.2-1.3); Blood Urea Nitrogen 9 mg/dL (7-17); Calcium 8.6 mg/dL (8.4-10.2); Carbon Dioxide 24 mmol/L (22-30); Chloride 105 mmol/L (98-107); Estimated CRCL calculation 121 ml/min; Estimated Glomerular Filt Rate > 60; Glucose 100 mg/dL (65-110); Potassium 3.6 mmol/L (3.4-5.0); Sodium 138 mmol/L (137-145)
--- NOTE | 2024-08-08 08:41 | P.PNCROSS_ITS ---
Event Note Event Note Event Note: Patient is a 68-year-old female who was admitted earlier this morning seen and evaluated by previous provider same day followed up with patient overall patient has complaints of sore throat and non-productive cough with chills. Patient denied any SOB or CP. Ailyn also reported increased urinary frequency and urgency. Currently she as been weaned from 4 L to 1L supplemental oxygen at 97%. it was reported patient normally wear CPAP at night however since she has been at [facility] she has not been wearing it. was concerned due to patient's new onset of confusion and lethargy. CT head showed no acute intracranial findings EKG with sinus rhythm and CTA with no PE cardiomegaly patchy areas of ground-glass appearance suggestive of pneumonia versus edema. however patient's UA was positive for urinary tract infection with positive nitrates, trace leukocytes, 4+ bacteria. patient continues admission at this time for continued treatment pneumonia with acute on chronic respiratory failure and metabolic encephalopathy likely secondary to UTI and pneumonia. initially patient was started on meropenem and azithromycin transitioned to cefepime to cover for HAP, she had a recent hospitalization at [place], MRSA was positive will defer treatment with vancomycin at this time WBC is back to 7.4 today. CXR did suggest possible edema and BNP was elevated patient received 60 mg IV Lasix she has an echocardiogram pending. Transitioned her back to Lasix 20mg BID PO.
[2024-08-08] MEDS: MULTIVITAMINS THERAPEUTIC TAB (*BKC) 1 TABLET PO (10:00)
[2024-08-08] MEDS: ESCITALOPRAM OXALATE 5 MG TABLET 15 MG PO (10:00)
[2024-08-08] MEDS: GABAPENTIN 300 MG CAPSULE PO ×3 (10:00→17:44)
[2024-08-08] MEDS: POTASSIUM CHLORIDE 20 MEQ PACKET (FOR LIQUID) PO ×2 (10:00→17:44)
[2024-08-08] MEDS: FUROSEMIDE 20 MG TABLET PO ×2 (10:00→17:43)
[2024-08-08] MEDS: busPIRone HCL 10 MG TABLET PO ×2 (10:00→17:44)
[2024-08-08] MEDS: BACLOFEN 5 MG TABLET PO ×2 (10:07→21:11)
[2024-08-08] MEDS: FUROSEMIDE INJ 40 MG/4 ML VIAL 20 MG IV PUSH (12:10)
[2024-08-08 12:17] LABS: Glucose Point of Care 161 mg/dl (65-105)
[2024-08-08] MEDS: CEFEPIME 2 GM/NS 50 ML 2 GM/50 ML BAG IVPB ×2 (13:40→21:12)
[2024-08-08] MEDS: PERFLUTREN LIPID MICROSPHERES 1.5 ML VIAL DILUTED TO 10 ML TOTAL VOLUME IV PUSH (13:50)
--- NOTE | 2024-08-08 14:57 | IVDEFINITY ---
Prior to administration of IV Definity the patient was educated on the risks and benefits of the imaging enhancing agent including potential adverse side effects. The patient verbalized understanding. Allergies were verified. No exclusion criteria were identified and at least one of the following inclusion criteria were met: 1) physician request, 2) patient technically difficult to image (per the [place] [employer] guidelines of two or more segments not discernable within the apical view), or 3) questionable left ventricular function. ?
[2024-08-08 17:12] LABS: Glucose Point of Care 141 mg/dl (65-105)
[2024-08-08 20:43] LABS: Glucose Point of Care 219 mg/dl (65-105)
[2024-08-08] MEDS: AZITHROMYCIN 250 MG TABLET 500 MG PO (21:11)
[2024-08-08] MEDS: LORATADINE 10 MG TABLET PO (21:12)
[2024-08-09] VITALS (14 sets, daily range): BP systolic 121–147; BP diastolic 64–86; PULSE 73–108; RESP 15–20; TEMP 36.1–36.7; O2SAT 92–99
[2024-08-09] MEDS: CEFEPIME 2 GM/NS 50 ML 2 GM/50 ML BAG IVPB (05:27)
[2024-08-09] MEDS: HEPARIN SODIUM 5,000 UNITS/ML VIAL 5000 UNITS SUB-Q ×3 (05:28→21:43)
[2024-08-09 05:41] LABS: Basophils Percent Auto 0.6 % (0.2-1.2); Eosinophils Absolute Auto 0.2 K/mm3 (0-0.3); Eosinophils Percent Auto 3.9 % (0-4.4); Hematocrit 44.1 % (37.0-47.0); Immature Granulocyte Absolute 0.02 K/mm3 (0.00-0.031); Immature Granulocyte Percent A 0.3 % (0-0.5); Lymphocytes Absolute Auto 1.79 K/mm3 (0.9-3.2); Lymphocytes Percent Auto 28.9 % (18.3-44.2); Mean Corpuscular HGB Conc 31.7 g/dl (32-36); Mean Corpuscular Hemoglobin 28.9 pg (26-34); Mean Corpuscular Volume 90.9 fl (80-100); Mean Platelet Volume 10.6 fl (7.4-10.4); Monocytes Absolute Auto 0.7 K/mm3 (0.1-0.6); Monocytes Percent Auto 10.5 % (2.6-8.5); Neutrophils Absolute Auto 3.5 K/mm3 (1.3-6.7); Neutrophils Percent Auto 55.8 % (45.5-73.1); Platelet Count Result 269 k/mm3 (150-375); Red Blood Count 4.85 M/mm3 (4.2-5.4); Red Cell Distribution Width 15.6 % (11.5-14.5); White Blood Count 6.2 K/mm3 (4.5-10.0)
[2024-08-09 05:57] LABS: Alanine Aminotransferase 18 U/L (6-35); Albumin Level 3.4 g/dL (3.5-5.1); Alkaline Phosphatase 83 U/L (38-126); Anion Gap 10 mmol/L (4-12); Aspartate Amino Transferase 18 U/L (14-36); Bilirubin,Total 1.3 mg/dL (0.2-1.3); Blood Urea Nitrogen 8 mg/dL (7-17); Calcium 8.7 mg/dL (8.4-10.2); Carbon Dioxide 26 mmol/L (22-30); Chloride 103 mmol/L (98-107); Estimated CRCL calculation 117 ml/min; Estimated Glomerular Filt Rate > 60; Glucose 138 mg/dL (65-110); Potassium 3.6 mmol/L (3.4-5.0); Sodium 139 mmol/L (137-145)
[2024-08-09 08:24] LABS: Glucose Point of Care 164 mg/dl (65-105)
[2024-08-09] MEDS: MUPIROCIN 2% OINT 22 GM TUBE 1 APPLIC EACH NARE ×2 (09:00→21:43)
--- NOTE | 2024-08-09 09:01 | PCOTNOTE ---
The patient treatment was not able to be completed. Patient is eating breakfast. Will plan to continue treatment per plan of care.
[2024-08-09] MEDS: GABAPENTIN 300 MG CAPSULE PO ×3 (09:39→17:47)
[2024-08-09] MEDS: busPIRone HCL 10 MG TABLET PO ×2 (09:39→17:46)
[2024-08-09] MEDS: MULTIVITAMINS THERAPEUTIC TAB (*BKC) 1 TABLET PO (09:39)
[2024-08-09] MEDS: ESCITALOPRAM OXALATE 5 MG TABLET 15 MG PO (09:39)
[2024-08-09] MEDS: FUROSEMIDE 20 MG TABLET PO ×2 (09:39→17:47)
[2024-08-09] MEDS: POTASSIUM CHLORIDE 20 MEQ PACKET (FOR LIQUID) PO ×2 (09:40→17:47)
--- NOTE | 2024-08-09 09:45 | P.PNIM_ITS ---
Progress Note: A&P Assessment and Plan (1) Acute respiratory failure with hypoxia: Code(s): J96.01 - Acute respiratory failure with hypoxia Status: Acute Assessment and Plan: per ED triage note patient had presented via EMS an initial oxygen saturation reported at 82% at which time they had placed her on 6 L nasal cannula she was then eventually weaned to 4 L in the emergency department with an oxygen sat uration of 94%. Patient had reported she had a recent hospitalization at [place] and resides at [facility] at this time she was initially given meropenem and azithromycin IV in the emergency department for HAP coverage I transitioned to cefepime and azithromycin. D-dimer was mildly elevated CTA was negative for PE patient states she does not wear any supplemental oxygen home but does wear a CPAP at bedtime. likely Multifocal due to CHF exacerbation and pneumonia. * wean oxygen as tolerated * incentive spirometer (2) Pneumonia: Code(s): J18.9 - Pneumonia, unspecified organism Status: Acute Assessment and Plan: patient reporting shortness a breath with productive cough upon arrival was hypoxic chest x-ray showing patchy areas of ground-glass suggestive of pneumonia versus edema however she did have a WBC of 18.4 and MRSA of the nares was positive. Patient initially started on meropenem and azithromycin for HAP coverage I transitioned to cefepime and azithromycin deferred with vancomycin white count had returned to 6.7 the following day and blood cultures were showing no growth oxygen weaned down to 1 L. influenza/COVID/RSV negative. However Urine culture resulted with ESBL switched back to meropenem IV * Bronchodilators. * incentive spirometry while awake. * will continue with cefepime and azithromycin pending cultures * supplemental oxygen therapy to maintain oxygen 92% currently at 1 L will continue to wean as tolerated * Mucinex * monitor blood cultures Q 24 hours no growth * CMP/CBC daily (3) Diastolic heart failure: Code(s): I50.30 - Unspecified diastolic (congestive) heart failure Status: Acute Assessment and Plan: patient's CTA showing patchy areas suggestive of pneumonia versus edema BNP was elevated patient denies history of CHF however is on furosemide at home she was given 40 mg IV in the ED and received 20 mg IV b.i.d. on the unit. I transition her back to her oral home dose of 20 mg p.o. b.i.d. she had adequate diuresis and almost weaned off her oxygen. echocardiogram showed diastolic dysfunction LVEF greater than 70% moderate TR and severe pulmonary hypertension. Acute on chronic diastolic heart failure * IV Lasix b.i.d. PO home dose * monitor renal function during diuresis * did start patient on low-dose carvedilol * Daily weight. * elevate/ wrap legs if needed (4) UTI (urinary tract infection): Code(s): N39.0 - Urinary tract infection, site not specified Status: Acute Assessment and Plan: Patient reported she had had increased frequency and urgency for the past week UA was positive for nitrates, trace leukocytes, 4+ bacteriuria, 0-5 WBCs. * continue with IV cefepime Switched to meropenem UA with E coli ESBL will need IV meropenem/ertapenem 5-7 days * blood cultures Q 24 no growth (5) Tachycardia, unspecified: Code(s): R00.0 - Tachycardia, unspecified Status: Acute Assessment and Plan: patient's heart rates ranging between id 120s and 100s * added carvedilol 6.125 b.i.d. * echocardiogram as above (6) Obesity: Code(s): E66.9 - Obesity, unspecified Status: Acute Assessment and Plan: * encourage increased on physical activity and lifestyle modifications * BMI . 48.9 * Diet exercise counseling done. L (7) Type 2 diabetes mellitus without complications: Code(s): E11.9 - Type 2 diabetes mellitus without complications Status: Acute Assessment and Plan: * Accu-Cheks a.c. HS * sliding scale insulin * hold oral diabetic medications * resume patient's home long-acting * Diabetic diet * encouraged lifestyle modifications and weight lost * Watch for hypoglycemia/hypoglycemic protocol ordered (8) SUKUMAR on CPAP: Code(s): G47.33 - Obstructive sleep apnea (adult) (pediatric) Status: Acute Assessment and Plan: * resumed CPAP at night and with naps (9) Pain in right knee: Code(s): M25.561 - Pain in right knee Status: Acute Assessment and Plan: Patient was transferred to [facility] after XRAY showed Total right knee arthroplasty with loosened tibial component and comminuted periprosthetic fracture of proximal tibia and Large knee joint effusion. Had a scheduled appt outpatient that she missed due to transportation follow-up appointment scheduled. Will tray and get records. * Will get venous doppler r/o DVT * Pain control * PT/OT (10) Acute encephalopathy: Code(s): G93.40 - Encephalopathy, unspecified Status: Resolved Assessment and Plan: patient on initial arrival lethargic with altered mental status with reported patient also reported to me that she was [facility] at this time she is alert and oriented and reports no further hallucinations likely secondary to her infectious process to include pneumonia and UTI with hypoxia. CT Head with no acute intracranial process. * Neuro checks * continue treatment for pneumonia and UTI RESOLVED Plan Code status: Full code per patient DVT prophylaxis: Heparin Stress ulcer prophylaxis: Protonix 40 daily PT/OT notes: PT/OT pending Disposition: patient continues admission for further treatment of her pneumonia, UTI and CHF exacerbation her metabolic encephalopathy has improved and resolved likely secondary to infections and hypoxia. PT/OT has been ordered patient currently resides at [facility] plan will be to return there when medically stable. Time Spent With Patient Time with patient: 15 - 25 minutes Subjective Date/time seen: 08/09/24 09:45 Interval history: Patient is a 68-year-old female who was admitted for further treatment of pneumonia, UTI, metabolic encephalopathy, and CHF exacerbation 08/09/2024: Patient still reporting RLE pain with any movement was transferred to [facility] for evaluation and is scheduled outpatient with ortho for possible surgery. I'll get a venous doppler and rule out DVT. Patient states her urine symptoms have improved and she feels better today. Congestion improving has been weaned to 1L NC Review of Systems Review of Systems: All systems reviewed & are unremarkable except as noted in HPI and below Exam Const: General: comfortable HENMT: Ears: TM's normal bilaterally Mouth: Yes moist mucous membranes Eyes: Sclera: sclerae normal Pupils: Equal, round and reactive pupils present Neck: Neck: supple Thyroid: thyroid normal Resp: Effort & Inspection: normal respiratory effort Auscultation: diminished lung sounds bilateral Cardio: Rate: tachycardic Rhythm: regular rhythm GI: GI Palp: Yes Soft to palpation Auscultation: normal bowel sounds Skin: General skin exam: normal color and no rashes or lesions noted Wounds: no wounds Neuro: Cranial nerves: Yes Equal, round and reactive pupils present Speech: normal speech Motor exam (neuro): Abnormal motor strength present Extrem: General: normal to inspection and no pedal edema Psych: Mental Status: mental status grossly normal Affect: Anxious affect present Objective Data Vital Signs Vital Signs: Vital Signs - 24 hr 08/08/24 10:00 08/08/24 12:00 08/08/24 12:00 Temperature 98.1 F Pulse Rate 102 H 99 Respiratory Rate 18 Blood Pressure 128/77 Pulse Oximetry 97 95 Oxygen Delivery Nasal Cannula Oxygen Flow Rate 4 08/08/24 14:05 08/08/24 15:25 08/08/24 16:00 Temperature 97.5 F L Pulse Rate 101 H Respiratory Rate 18 Blood Pressure 151/74 H Pulse Oximetry 94 Oxygen Delivery Nasal Cannula Nasal Cannula Oxygen Flow Rate 4 1 08/08/24 20:00 08/08/24 20:00 08/08/24 21:02 Temperature 97.7 F Pulse Rate 101 H 107 H Respiratory Rate 20 Blood Pressure 110/69 Pulse Oximetry 93 96 Oxygen Delivery Nasal Cannula Oxygen Flow Rate 1 08/08/24 23:31 08/09/24 00:00 08/09/24 00:00 Temperature 97.6 F Pulse Rate 101 H 95 97 Respiratory Rate 24 H 20 Blood Pressure 138/75 Pulse Oximetry 96 96 Oxygen Delivery CPAP Oxygen Flow Rate 08/09/24 02:20 08/09/24 04:00 08/09/24 04:00 Temperature 97.6 F Pulse Rate 96 97 99 Respiratory Rate 16 20 Blood Pressure 128/77 Pulse Oximetry 97 95 Oxygen Delivery CPAP Oxygen Flow Rate 08/09/24 08:00 Temperature 97.4 F L Pulse Rate 108 H Respiratory Rate 18 Blood Pressure 147/64 H Pulse Oximetry 92 Oxygen Delivery Oxygen Flow Rate Intake/Output Intake/Output: Intake & Output 08/06/24 08/07/24 08/08/24 08/09/24 23:59 23:59 23:59 23:59 Intake Total 350 1350 360 Output Total 2300 400 Balance 350 -950 -40 Meds/Results Medications: Active Medications Generic Name Dose Route Start Last Admin Trade Name Freq PRN Reason Stop Dose Admin Acetaminophen 650 mg 08/07/24 21:37 Acetaminophen 325 Mg Tablet PO Q4H PRN Mild Pain (1-3) or Fever Albuterol/Ipratropium 3 ml 08/08/24 08:09 Ipratropium 0.5 Mg/Albuterol Sulfate 2.5 Mg Ampul.Neb 3 Ml INHALATION QID PRN shortness of breath or wheezing Azithromycin 500 mg 08/08/24 21:00 08/08/24 21:11 Azithromycin 250 Mg Tablet PO 08/11/24 21:01 500 mg QHS ABBIE Administration Baclofen 5 mg 08/08/24 08:09 08/08/24 21:11 Baclofen 5 Mg Tablet PO 5 mg Q8H PRN Administration muscle spasm Benzocaine 1 lozenge 08/08/24 14:01 Benzocaine/Menthol (*Bkc) 18 Ea Lozenge PO PRN PRN Sore Throat Buspirone HCl 10 mg 08/08/24 09:00 08/08/24 17:44 Buspirone Hcl 10 Mg Tablet PO 10 mg BID ABBIE Administration Dextrose 12.5 gm 08/08/24 08:13 Dextrose 50% 25 Gm/50 Ml Syringe IV PUSH PRN PRN Hypoglycemia Protocol Ergocalciferol 50,000 units 08/13/24 09:00 Ergocalciferol 50,000 Units Capsule PO WEEKLY ABBIE Escitalopram Oxalate 15 mg 08/08/24 09:00 08/08/24 10:00 Escitalopram Oxalate 5 Mg Tablet PO 15 mg DAILY ABBIE Administration Furosemide 20 mg 08/08/24 09:00 08/08/24 17:43 Furosemide 20 Mg Tablet PO 20 mg BID ABBIE Administration Gabapentin 300 mg 08/08/24 09:00 08/08/24 17:44 Gabapentin 300 Mg Capsule PO 300 mg TID ABBIE Administration Glucagon 1 mg 08/08/24 08:13 Glucagon For Inj 1 Mg Vial IM PRN PRN Hypoglycemia Protocol Glucose 15 gm 08/08/24 08:13 Glucose Oral Gel 15 Gm Of Glucse In 37.5 Gm Tube PO PRN PRN Hypoglycemia Protocol Guaifenesin/Dextromethorphan 10 ml 08/07/24 21:25 Guaifenesin/Dextromethorphan 10 Ml Udc PO Q4H PRN Cough Heparin Sodium (Porcine) 5,000 units 08/07/24 22:00 08/09/24 05:28 Heparin Sodium 5,000 Units/Ml Vial SUB-Q 5,000 units Q8HR ABBIE Administration Cefepime HCl 2 gm in 50 mls @ 100 mls/hr 08/08/24 14:00 08/09/24 05:27 Maxipime 2 Gm/Ns 50 Ml IVPB 100 mls/hr Q8H ABBIE Administration Dextrose 1,000 mls @ 100 mls/hr 08/08/24 08:13 Dextrose 5% 1,000 Ml IVPB PRN PRN Hypoglycemia Protocol Insulin Aspart 2 - 5 units 08/08/24 12:00 08/09/24 09:21 Insulin Aspart (*Bkc) 100 Units/Ml SUB-Q Not Given TIDWM ABBIE Protocol Loperamide HCl 2 mg 08/08/24 08:09 Loperamide Hcl 2 Mg Capsule PO Q6H PRN loose stool Loratadine 10 mg 08/08/24 21:00 08/08/24 21:12 Loratadine 10 Mg Tablet PO 10 mg HS ABBIE Administration Meclizine HCl 12.5 mg 08/08/24 08:17 Meclizine Hcl 12.5 Mg Tablet PO Q8H PRN dizziness Multivitamins Therapeutic 1 tablet 08/08/24 09:00 08/08/24 10:00 Multivitamins Therapeutic Tab (*Bkc) PO 1 tablet DAILY ABBIE Administration Mupirocin 1 applic 08/08/24 04:30 08/08/24 21:12 Mupirocin 2% Oint 22 Gm Tube EACH NARE 08/18/24 04:29 1 applic Q12HR ABBIE Administration Ondansetron HCl 4 mg 04/09/25 20:07 Ondansetron Inj 4 Mg/2 Ml Vial IV PUSH Q4H PRN Nausea Potassium Chloride 20 meq 08/08/24 09:00 08/08/24 17:44 Potassium Chloride 20 Meq Packet (For Liquid) PO 20 meq BID ABBIE Administration Tramadol HCl 50 mg 08/08/24 08:09 08/08/24 21:11 Tramadol Hcl (*Crx) 50 Mg Tablet PO 50 mg Q6H PRN Administration pain (scale score 4-6) Radiology Results: ITS Impressions Chest X-Ray 08/07/24 16:04 IMPRESSION: Cardiomegaly. No acute cardiopulmonary pathology seen. Head CT 08/07/24 18:11 IMPRESSION: No acute intracranial findings. Chest CTA 08/07/24 18:18 IMPRESSION: 1. No pulmonary embolism. 2. Cardiomegaly. 3. Patchy areas of groundglass appearance suggestive of pneumonia versus edema. Clinical correlation and follow-up advised. Labs Labs: Laboratory Results - last 24 hr 08/08/24 08/08/24 08/08/24 12:12 17:06 20:39 WBC RBC Hgb Hct MCV MCH MCHC RDW Plt Count MPV Immature Gran % (Auto) Neut % (Auto) Lymph % (Auto) [place] % (Auto) Eos % (Auto) Baso % (Auto) Lymph # (Auto) [place] # (Auto) Eos # (Auto) Baso # (Auto) Abs Immat Gran (auto) Absolute Neuts (auto) Absolute Nucleated RBC Nucleated RBC % Sodium Potassium Chloride Carbon Dioxide Anion Gap BUN Creatinine Estim Creat Clear Calc Estimated GFR Glucose POC Capillary Glucose 161 H 141 H 219 H Calcium Total Bilirubin AST ALT Alkaline Phosphatase Total Protein Albumin 08/09/24 08/09/24 05:23 08:20 WBC 6.2 RBC 4.85 Hgb 14.0 Hct 44.1 MCV 90.9 MCH 28.9 MCHC 31.7 L RDW 15.6 H Plt Count 269 MPV 10.6 H Immature Gran % (Auto) 0.3 Neut % (Auto) 55.8 Lymph % (Auto) 28.9 [place] % (Auto) 10.5 H Eos % (Auto) 3.9 Baso % (Auto) 0.6 Lymph # (Auto) 1.79 [place] # (Auto) 0.7 H Eos # (Auto) 0.2 Baso # (Auto) 0.0 Abs Immat Gran (auto) 0.02 Absolute Neuts (auto) 3.5 Absolute Nucleated RBC 0.000 Nucleated RBC % 0.0 Sodium 139 Potassium 3.6 Chloride 103 Carbon Dioxide 26 Anion Gap 10 BUN 8 Creatinine 0.53 L Estim Creat Clear Calc 117 Estimated GFR > 60 Glucose 138 H POC Capillary Glucose 164 H Calcium 8.7 Total Bilirubin 1.3 AST 18 ALT 18 Alkaline Phosphatase 83 Total Protein 6.0 L Albumin 3.4 L Quality VTE Prophylaxis VTE prophylaxis: mechanical ordered and pharmacologic ordered -Patient's previous records reviewed on admission -ER notes reviewed in detail on admission -discussed all findings and current treatment plan with patient/Family/POA -Consultations reviewed for recommendations -Patient's disposition for safe discharge discussed with upper caser Dictation performed by [employer] direct speech recognition software, therefore art consultant variants and typographical errors may occur. Hospitalist MIPS Advance Care Plan I have confirmed that the patient's Advanced Care Plan is present, code status is documented, or surrogate decision maker is listed in patient medical record.: Yes Medication Reconciliation I have utilized all available resources to obtain, update and review the patients current medications (includes all prescriptions, OTC, herbals, cannabis, and nutritional supplements).: Yes The patient is not eligible for med reconciliation; the patient is in a emergent medical situation where delaying treatment would jeopardize the patients health.: No
[2024-08-09] MEDS: BACLOFEN 5 MG TABLET PO ×2 (09:50→21:42)
[2024-08-09] MEDS: traMADol HCL (*CRX) 50 MG TABLET PO ×2 (09:51→21:59)
[2024-08-09] MEDS: carvediloL 6.25 MG TABLET PO ×2 (09:54→21:42)
--- NOTE | 2024-08-09 11:50 | PCPTNOTE ---
Patient unavailable to be seen secondary to Occupational Therapy being in the room.
[2024-08-09 12:16] LABS: Glucose Point of Care 185 mg/dl (65-105)
[2024-08-09] MEDS: MEROPENEM 1 GM/NS 100 ML 1 GM/100 ML BAG IVPB ×2 (14:30→21:43)
[2024-08-09] MEDS: LIDOCAINE 1% LOCAL INJ 2 ML AMPUL 5 ML INFILTRATE (16:05)
[2024-08-09 17:04] LABS: Glucose Point of Care 160 mg/dl (65-105)
[2024-08-09 20:48] LABS: Glucose Point of Care 188 mg/dl (65-105)
[2024-08-09] MEDS: LORATADINE 10 MG TABLET PO (21:42)
[2024-08-09] MEDS: SALINE LOCK FLUSH 10 ML IV PUSH ×2 (21:42→21:50)
[2024-08-09] MEDS: AZITHROMYCIN 250 MG TABLET 500 MG PO (21:42)
[2024-08-10] VITALS (8 sets, daily range): BP systolic 119–130; BP diastolic 69–84; PULSE 81–96; RESP 18; TEMP 36.1–36.5; O2SAT 93–98
[2024-08-10] MEDS: HEPARIN SODIUM 5,000 UNITS/ML VIAL 5000 UNITS SUB-Q ×2 (05:55→13:10)
[2024-08-10] MEDS: MEROPENEM 1 GM/NS 100 ML 1 GM/100 ML BAG IVPB ×2 (05:56→13:10)
[2024-08-10] MEDS: traMADol HCL (*CRX) 50 MG TABLET PO (06:01)
[2024-08-10] MEDS: SALINE LOCK FLUSH 10 ML IV PUSH ×4 (06:02→13:11)
[2024-08-10 06:27] LABS: Basophils Absolute Auto 0.1 K/mm3 (0.0-0.1); Basophils Percent Auto 0.9 % (0.2-1.2); Eosinophils Absolute Auto 0.3 K/mm3 (0-0.3); Hematocrit 44.1 % (37.0-47.0); Hemoglobin 13.7 g/dL (12.0-15.0); Immature Granulocyte Absolute 0.02 K/mm3 (0.00-0.031); Immature Granulocyte Percent A 0.3 % (0-0.5); Lymphocytes Absolute Auto 1.99 K/mm3 (0.9-3.2); Lymphocytes Percent Auto 34.4 % (18.3-44.2); Mean Corpuscular HGB Conc 31.1 g/dl (32-36); Mean Corpuscular Hemoglobin 28.5 pg (26-34); Mean Corpuscular Volume 91.9 fl (80-100); Mean Platelet Volume 10.6 fl (7.4-10.4); Monocytes Absolute Auto 0.5 K/mm3 (0.1-0.6); Monocytes Percent Auto 9.3 % (2.6-8.5); Neutrophils Absolute Auto 2.9 K/mm3 (1.3-6.7); Neutrophils Percent Auto 50.1 % (45.5-73.1); Platelet Count Result 259 k/mm3 (150-375); Red Cell Distribution Width 15.2 % (11.5-14.5); White Blood Count 5.8 K/mm3 (4.5-10.0)
[2024-08-10 06:44] LABS: Alanine Aminotransferase 16 U/L (6-35); Albumin Level 3.3 g/dL (3.5-5.1); Alkaline Phosphatase 76 U/L (38-126); Anion Gap 8 mmol/L (4-12); Aspartate Amino Transferase 17 U/L (14-36); Bilirubin,Total 1.1 mg/dL (0.2-1.3); Blood Urea Nitrogen 8 mg/dL (7-17); Calcium 8.5 mg/dL (8.4-10.2); Carbon Dioxide 25 mmol/L (22-30); Chloride 104 mmol/L (98-107); Estimated CRCL calculation 133 ml/min; Estimated Glomerular Filt Rate > 60; Glucose 143 mg/dL (65-110); Potassium 3.8 mmol/L (3.4-5.0); Sodium 137 mmol/L (137-145)
[2024-08-10 08:14] LABS: Glucose Point of Care 137 mg/dl (65-105)
[2024-08-10] MEDS: carvediloL 6.25 MG TABLET PO (09:08)
[2024-08-10] MEDS: busPIRone HCL 10 MG TABLET PO ×2 (09:08→17:43)
[2024-08-10] MEDS: FUROSEMIDE 20 MG TABLET PO ×2 (09:09→17:43)
[2024-08-10] MEDS: MULTIVITAMINS THERAPEUTIC TAB (*BKC) 1 TABLET PO (09:09)
[2024-08-10] MEDS: GABAPENTIN 300 MG CAPSULE PO ×3 (09:09→17:44)
[2024-08-10] MEDS: ESCITALOPRAM OXALATE 5 MG TABLET 15 MG PO (09:09)
[2024-08-10] MEDS: POTASSIUM CHLORIDE 20 MEQ PACKET (FOR LIQUID) PO ×2 (09:09→17:44)
[2024-08-10] MEDS: BACLOFEN 5 MG TABLET PO (09:23)
[2024-08-10 12:09] LABS: Glucose Point of Care 183 mg/dl (65-105)
[2024-08-10] MEDS: MUPIROCIN 2% OINT 22 GM TUBE 1 APPLIC EACH NARE (13:11)
--- NOTE | 2024-08-10 13:16 | P.DS_ITS ---
DS: Admitting Diagnosis Discharge Date 08/10/2024 Admitting Diagnosis Pneumonia/UTI DS: Discharge Diagnosis Discharge Diagnosis (1) Acute respiratory failure with hypoxia: Code(s): J96.01 - Acute respiratory failure with hypoxia Status: Acute (2) Pneumonia: Code(s): J18.9 - Pneumonia, unspecified organism Status: Acute (3) Diastolic heart failure: Code(s): I50.30 - Unspecified diastolic (congestive) heart failure Status: Acute (4) UTI (urinary tract infection): Code(s): N39.0 - Urinary tract infection, site not specified Status: Acute (5) Tachycardia, unspecified: Code(s): R00.0 - Tachycardia, unspecified Status: Acute (6) Obesity: Code(s): E66.9 - Obesity, unspecified Status: Acute (7) Type 2 diabetes mellitus without complications: Code(s): E11.9 - Type 2 diabetes mellitus without complications Status: Acute (8) SUKUMAR on CPAP: Code(s): G47.33 - Obstructive sleep apnea (adult) (pediatric) Status: Acute (9) Pain in right knee: Code(s): M25.561 - Pain in right knee Status: Acute (10) Acute encephalopathy: Code(s): G93.40 - Encephalopathy, unspecified Status: Resolved Plan Disposition: Discharge to [facility] [place] DS: Summary Hospital Course Reason for hospitalization: Pneumonia/UTI Hospital Course: Patient was a 68-year-old female with a medical history significant for depression w/anxiety, peripheral neuropathy, IDDM 2, vertigo, GERD, chronic pain syndrome, A residence of [facility], where she currently stays with plans to undergo Physical Rehabilitation in anticipation of a surgical repair of her right lower extremity at [facility] but had missed her last follow-up appointment. Patient presented to the emergency department after noticed she was more confused, incoherent, increasingly somnolent, with evidence of visual hallucinations. per ED triage note patient had presented via EMS an initial oxygen saturation reported at 82% at which time they had placed her on 6 L nasal cannula she was then eventually weaned to 4 L in the emergency department with an oxygen saturation of 94%. Patient had reported she had a recent hospitalization at [place] and resides at [facility] at this time she was initially given meropenem and azithromycin IV in the emergency department for HAP coverage I transitioned to cefepime and azithromycin. D-dimer was mildly elevated CTA was negative for PE patient states she does not wear any supplemental oxygen home but does wear a CPAP at bedtime. 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 Patient initially started on meropenem and azithromycin for HAP coverage I transitioned to cefepime and azithromycin deferred with vancomycin white count had returned to 6.7 the following day and blood cultures were showing no growth oxygen weaned down to 1 L. influenza/COVID/RSV negative. However Urine culture resulted with ESBL switched back to meropenem IV which she will get it IV ertapenem x6 more days for her urinary tract infection which came back with ESBL. She had had a PICC line placed and will be able to complete therapy outpatient at her long-term facility Patient's CTA showing patchy areas suggestive of pneumonia versus edema BNP was elevated patient denies history of CHF however is on furosemide at home she was given 40 mg IV in the ED and received 20 mg IV b.i.d. on the unit. I transition her back to her oral home dose of 20 mg p.o. b.i.d. she had adequate diuresis and almost weaned off her oxygen. echocardiogram showed diastolic dysfunction LVEF greater than 70% moderate TR and severe pulmonary hypertension. Patient improved with IV diuresis and was transition back to her oral torsemide prior to discharge. Patient did continue to tachycardia during hospitalization initiated low-dose carvedilol with improvement to HR. Patient still with complaints right or knee pain however a few weeks prior patient was transferred to [facility] after XRAY showed Total right knee arthroplasty with loosened tibial component and comminuted periprosthetic fracture of proximal tibia and Large knee joint effusion. Had a scheduled appt outpatient that she missed due to transportation follow-up appointment scheduled. I did do a venous Doppler which was negative for DVT. Patient on arrival was lethargic with altered mental status with reported patient also reported to me that she was having hallucinations at the long-term facility at this time she is alert and oriented and reports no further hallucinations likely secondary to her infectious process to include pneumonia and UTI with hypoxia. CT Head with no acute intracranial process. This had resolved with treatment of her underlying infectious process. Patient with overall improvement wean down to 1 L can continue to wean at long-term facility will complete 6 more days of ertapenem for ESBL as well as pneumonia PICC in place remove after IV antibiotic therapy completed. Patient acknowledged and agreed discharge plan patient was discharged to long-term facility via EMS. Status at Discharge Functional status at discharge: uses cane/walker Time Spent with Patient Time attestation: Total time spent providing and/or coordinating discharge services: Time spent: Greater than 30 minutes Exam Const: General: comfortable HENMT: Ears: TM's normal bilaterally Mouth: Yes moist mucous membranes and Yes dry mucous membranes Eyes: Sclera: sclerae normal Pupils: Equal, round and reactive pupils present Neck: Neck: supple Thyroid: thyroid normal Resp: Effort & Inspection: normal respiratory effort Auscultation: diminished lung sounds bilateral Cardio: Rate: regular rate and tachycardic Rhythm: regular rhythm GI: Auscultation: normal bowel sounds Skin: General skin exam: normal color and no rashes or lesions noted Wounds: no wounds Neuro: General: No gait normal Cranial nerves: Yes Equal, round and reactive pupils present Speech: normal speech Motor exam (neuro): strength not 5/5 throughout and Abnormal motor strength present Extrem: General: normal to inspection and no pedal edema Psych: Mental Status: mental status grossly normal Affect: Anxious affect present DS: Data Data Completed and Pending Labs on day of discharge: Labs from last 24 hours 08/10/24 08/10/24 08/10/24 12:05 08:06 06:15 WBC 5.8 RBC 4.80 Hgb 13.7 Hct 44.1 MCV 91.9 MCH 28.5 MCHC 31.1 L RDW 15.2 H Plt Count 259 MPV 10.6 H Immature Gran % (Auto) 0.3 Neut % (Auto) 50.1 Lymph % (Auto) 34.4 [place] % (Auto) 9.3 H Eos % (Auto) 5.0 H Baso % (Auto) 0.9 Lymph # (Auto) 1.99 [place] # (Auto) 0.5 Eos # (Auto) 0.3 Baso # (Auto) 0.1 Abs Immat Gran (auto) 0.02 Absolute Neuts (auto) 2.9 Absolute Nucleated RBC 0.000 Nucleated RBC % 0.0 Sodium 137 Potassium 3.8 Chloride 104 Carbon Dioxide 25 Anion Gap 8 BUN 8 Creatinine 0.46 L Estim Creat Clear Calc 133 Estimated GFR > 60 Glucose 143 H POC Capillary Glucose 183 H 137 H Calcium 8.5 Total Bilirubin 1.1 AST 17 ALT 16 Alkaline Phosphatase 76 Total Protein 6.0 L Albumin 3.3 L 08/09/24 08/09/24 20:28 17:01 WBC RBC Hgb Hct MCV MCH MCHC RDW Plt Count MPV Immature Gran % (Auto) Neut % (Auto) Lymph % (Auto) [place] % (Auto) Eos % (Auto) Baso % (Auto) Lymph # (Auto) [place] # (Auto) Eos # (Auto) Baso # (Auto) Abs Immat Gran (auto) Absolute Neuts (auto) Absolute Nucleated RBC Nucleated RBC % Sodium Potassium Chloride Carbon Dioxide Anion Gap BUN Creatinine Estim Creat Clear Calc Estimated GFR Glucose POC Capillary Glucose 188 H 160 H Calcium Total Bilirubin AST ALT Alkaline Phosphatase Total Protein Albumin Preliminary micro results at discharge 08/07/24 16:36 Blood Culture - Preliminary Blood 08/07/24 17:02 Blood Culture - Preliminary Blood Discharge Plan Discharge Attending physician on discharge: Byron Murillo Consulting providers: Faina Tay Discharging Clinician: Faina Tay Anticipated Discharge Date/Time: 08/10/24 13:03 Patient Disposition: SNF Activity: as tolerated Diet: diabetic Discharge Instructions: UTI/ESBL * IV ertapenem x 6 more days to complete therapy * practice good hygiene * PICC care information provided may remove after you complete your IV therapy Pneumonia: * I have also added Azithromyocin 4 more doses please complete as tolerated even if feeling better * Continue to use her incentive spirometer * I also prescribed Mucinex twice a day * Asymptomatic pain fever and mild pain SUKUMAR * CPAP at night and with naps Keep your follow-up appointments with Orthopedics How can you care for yourself at home? ? Keep track of any new symptoms or changes in your symptoms. ? Rest until you feel better. ? Be safe with medicines. Take your medicines exactly as prescribed. Call your doctor if you think you are having a problem with your medicine. ? Do not drive after taking a prescription pain medicine. ? Ensure to follow-up with primary care physician as indicated and provide updated medication list provided to you at discharge. When should you call for help? Call 911 anytime you think you may need emergency care. For example, call if: ? You passed out (lost consciousness). Call your doctor now or seek immediate medical care if: ? You have new symptoms like fever, difficulty breathing, Chest pain, vomiting, or rash. ? You have new or different pain. ? You are confused and are having trouble thinking clearly. ? Your symptoms are getting worse. Watch closely for changes in your health, and be sure to contact your doctor if: ? You do not get better as expected. Patient Instructions: Sleep Apnea (GEN), Urinary Tract Infection in Women (DC), CPAP (GEN), Hospital Acquired Pneumonia (DC), Urinary Tract Infection in Older Adults (DC) Patient Language: Pashto Stand Alone Forms: General Discharge Information, Senior Care Discharge Follow-up/Referrals: UNKNOWN,DOCTOR [Primary Care Provider] - Call for Appointment Discharge Medications: New ertapenem 1 gram recon soln 1 g IV DAILY Qty: 6 0RF dextromethorphan-guaifenesin 10-100 mg/5 mL Syrup 10 ml PO Q4H PRN (Reason: Cough) Qty: 20 0RF azithromycin [Zithromax] 250 mg Tablet 500 mg PO QHS Qty: 8 0RF carvedilol [Coreg] 6.25 mg Tablet 6.25 mg PO Q12HR Qty: 60 0RF Continued insulin lispro 100 unit/mL solution 5 unit subcut .with meals Rx Instructions: hold insulin if blood sugar level below 80 call if greater than 350 multivitamin [Daily Multi-Vitamin] Tablet 1 tablet PO DAILY baclofen 5 mg tablet 5 mg PO Q8H PRN (Reason: muscle spasm) buspirone 10 mg tablet 10 mg PO BID ergocalciferol (vitamin D2) 1,250 mcg (50,000 unit) capsule 1,250 mcg PO WEEKLY Rx Instructions: Monday fluticasone propion-salmeterol 250-50 mcg/dose blister with device 1 inh INHALATION Q12H furosemide 20 mg tablet 20 mg PO BID gabapentin 300 mg capsule 300 mg PO TID loperamide [Anti-Diarrheal (loperamide)] 2 mg capsule 2 mg PO Q6H PRN (Reason: loose stool) ipratropium-albuterol 0.5 mg-3 mg(2.5 mg base)/3 mL solution for nebulization 3 ml inhalation QID PRN (Reason: shortness of breath or wheezing) escitalopram oxalate [Lexapro] 10 mg tablet 15 mg PO DAILY lidocaine 4 % adhesive patch,medicated 1 patch topical DAILY Rx Instructions: rt back of knee Allergy Relief (loratadine) 10 mg capsule 10 mg PO HS meclizine [Antivert] 25 mg tablet,chewable 12.5 mg PO Q8H PRN (Reason: dizziness) metformin 500 mg tablet 500 mg PO DAILY montelukast 10 mg tablet 10 mg PO QPM nystatin [Nyamyc] 100,000 unit/gram powder 1 applic TOPICAL TID Rx Instructions: l armpit and effected areas omeprazole 40 mg capsule,delayed release(DR/EC) 40 mg PO DAILY ondansetron 4 mg tablet,disintegrating 4 mg PO Q6H PRN (Reason: nausea and vomiting) Ozempic 0.25 mg or 0.5 mg (2 mg/3 mL) pen injector 0.25 mg subcut WEEKLY Rx Instructions: Monday potassium chloride 20 mEq tablet,ER particles/crystals 20 meq PO TID PreserVision AREDS-2 250-90-40-1 mg capsule 1 tablet PO BID tramadol 50 mg tablet 50 mg PO Q6H PRN (Reason: pain (scale score 4-6)) acetaminophen [Arthritis Pain Relief (acetam)] 650 mg tablet extended release 1,300 mg PO Q12H Date of admission: 08/08/24 08:02 Primary Care Provider: UNKNOWN,DOCTOR Admitting Provider: Yan Santillan Attending physician on admission: Yan Santillan Condition: Stable Quality VTE Prophylaxis VTE prophylaxis: mechanical ordered and pharmacologic ordered -Patient's previous records reviewed on admission -ER notes reviewed in detail on admission -discussed all findings and current treatment plan with patient/Family/POA -Consultations reviewed for recommendations -Patient's disposition for safe discharge discussed with case packer and sealer Dictation performed by [employer] direct speech recognition software, therefore field adjuster variants and typographical errors may occur. Hospitalist MIPS Heart Failure (Exclusion) Patient has history of Heart Transplant or Left Ventricular Assistive Device?: No IF YES, STOP HERE Heart Failure (Qualifier) Patient has current or prior documentation of LVEF less than or equal to 40%, or mod/servere depressed LVSF?: No IF NO, STOP HERE
[2024-08-10 16:36] LABS: SARS-CoV-2 RNA PCR Negative (Negative)
[2024-08-10 17:20] LABS: Glucose Point of Care 142 mg/dl (65-105)
--- NOTE | 2024-08-12 07:53 | P.CDI_ITS ---
CDI Query Clarification Request Please specify acuity of heart failure if known. * Acute * Chronic * Acute on Chronic * Unknown (3) Diastolic heart failure: Code(s): I50.30 - Unspecified diastolic (congestive) heart failure Status: Acute Assessment and Plan: patient's CTA showing patchy areas suggestive of pneumonia versus edema BNP was elevated patient denies history of CHF however is on furosemide at home she was given 40 mg IV in the ED and received 20 mg IV b.i.d. on the unit. I transition her back to her oral home dose of 20 mg p.o. b.i.d. she had adequate diuresis and almost weaned off her oxygen. echocardiogram showed diastolic dysfunction LVEF greater than 70% moderate TR and severe pulmonary hypertension. Acute on chronic diastolic heart failure * IV Lasix b.i.d. PO home dose * monitor renal function during diuresis * did start patient on low-dose carvedilol * Daily weight. * elevate/ wrap legs if needed <Miri Sky RN - Last Filed: 08/12/24 07:54> Clarified Diagnosis Clarified Diagnosis: acute on chronic diastolic heart failure <Faina Tay APRN - Last Filed: 08/12/24 08:18>
== END 2024-08-10 18:30 | DRG 193 ==
LOC: ANHED 16:10 → ANH2MED 20:52
PROVIDERS: Emergency Medicine; Admitting Provider Internal Medicine; Emergency Provider Student in an Organized Health Care Education/Training Program; Visit Provider Nurse Practitioner Family
DX: J18.9 Pneumonia, unspecified organism (principal); G93.41 Metabolic encephalopathy; I50.33 Acute on chronic diastolic (congestive) heart failure; J96.01 Acute respiratory failure with hypoxia; N39.0 Urinary tract infection, site not specified; T84.032A Mechanical loosening of internal right knee prosthetic joint, initial encounter; M97.11XA Periprosthetic fracture around internal prosthetic right knee joint, initial encounter; Z68.42 Body mass index [BMI] 45.0-49.9, adult; R44.0 Auditory hallucinations; Z16.12 Extended spectrum beta lactamase (ESBL) resistance; R44.1 Visual hallucinations; R00.0 Tachycardia, unspecified; G47.33 Obstructive sleep apnea (adult) (pediatric); E11.9 Type 2 diabetes mellitus without complications; F41.8 Other specified anxiety disorders; E11.42 Type 2 diabetes mellitus with diabetic polyneuropathy; K21.9 Gastro-esophageal reflux disease without esophagitis; G89.4 Chronic pain syndrome; I11.0 Hypertensive heart disease with heart failure; E78.5 Hyperlipidemia, unspecified; E66.01 Morbid (severe) obesity due to excess calories; B96.20 Unspecified Escherichia coli [E. coli] as the cause of diseases classified elsewhere; X58.XXXA Exposure to other specified factors, initial encounter
CPT/HCPCS: 36410; 36415; 36600; 70450; 70496; 70498; 71045; 71275; 80053; 81001; 82375; 82805; 82948; 83050; 83605; 83880; 84443; 84484; 85018; 85025; 85380; 87040; 87086; 87186; 87635; 87637; 87641; 93005; 93970; 96365; 96366; 96367; 96375; 96376; 97161; 97166; 97530; 99285; A9270; C1751; C8929; G0378; J0456; J0692; J1644; J1938; J2003; J2185; J3370; Q9957; Q9967